=== PATIENT | female | born 1940 | race Caucasian/White ===

== ENCOUNTER 2016-06-23 06:52 | Outpatient (CLI) ==
[2012-10-29 14:30] VITALS: BMI 26.9
--- NOTE | 2016-06-23 08:26 | DI ---
EXAM: Radiographs, right rib HISTORY: Initial presentation for right rib pain following a fall. COMPARISON: Chest radiograph 10/31/2012. TECHNIQUE: Three views. FINDINGS/IMPRESSION: No right rib fracture identified. No right pleural effusion or pneumothorax detected.
--- NOTE | 2016-06-23 08:29 | DI ---
EXAM: Two x-rays of the chest. Comparison: 10/31/2012. Reason for exam: Right rib pain. Fall. FINDINGS: No pneumothorax. Operative changes are seen after ACDF. Cardiac silhouette is unchanged . Partially calcified density overlying the left hemithorax is presumably a breast implant. There is minimal blunting of both costophrenic angles likely atelectasis. No obvious displaced rib fractu res. Impression: 1. Minimal blunting of the costophrenic angles is likely atelectasis. No pneumothorax. 2. No obvious displaced rib fractures. If clinical concern exists, dedicated rib x-rays may be per formed.
--- NOTE | 2016-06-23 08:30 | DI ---
EXAM: Six views of the cervical spine. History: Neck trauma. Findings: Osteopenia. Only through C5 is seen on the lateral view. Atherosclerotic vascular calcif ications. No prevertebral soft tissue swelling. Predental space is not widened. There is loss of h eight involving the superior endplate of C5 with no definite acute cortical break seen. The anterio r fusion hardware at C6-7. Mild to moderate multilevel degenerative disc space narrowing. Multilev el bilateral bony neural foraminal narrowing secondary to uncovertebral and facet hypertrophy. Impression: Age indeterminate compression deformity involving the superior endplate of C5. Recomme nd correlation with cervical spine CT or MRI.
--- NOTE | 2016-06-23 08:35 | DI ---
EXAM: Mandible five views HISTORY: Fall, pain COMPARISON: None FINDINGS: No fracture or dislocation is identified. No focal soft tissue abnormality. IMPERSSION: No fracture or dislocation identified. Consider CT for further evaluation as indicated .
--- NOTE | 2016-06-23 09:02 | MRI ---
EXAM: Brain MRI without contrast. HISTORY: Fall. COMPARISON: Head CT 10/29/2012 and brain MRI 10/16/2011. TECHNIQUE: Multiplanar, multisequence MR images were acquired of the brain without contrast. FINDINGS: The midline structures are central and the craniocervical junction is unremarkable. The ventricles and sulci are generally normal in size and configuration. There are no abnormal extra-ax ial fluid collections. The brain parenchyma has a 3 mm focus of mildly bright B 1000, dark ADC , bright T2 signal in the me dial left temporal lobe along the medial margin of the left temporal horn of the lateral ventricle. This corresponds with the inferior lateral left anterior hippocampal body and may represent a small focus of late acute hypoperfusion or infarction. There is a faint 3 mm focus of bright B 1000 sign al in the superior right parietal lobe (image #19). This has no corresponding dark B 1000 signal or bright T2 signal is considered artifactual. Metallic artifact is present along the right frontal c alvarium that corresponds with a punctate density on the remote CT scan. This is consistent with a tiny focus of metal in the right frontal scalp. Small T2 hyperintensities are present in the suprat entorial white matter and megan compatible with moderate leukomalacia. There is a small chronic infa rct in the anterior left basal ganglia. The corpus callosum is normal in configuration. The pituit saulo gland is unremarkable. There are no intraorbital masses. Minor scattered mucosal thickening is present in the ethmoid air cells bilaterally and in a few inferior mastoid air cells bilaterally. There is intermediate T1 and intermediate to mildly bright T2 signal in the right internal carotid a rtery from the distal cervical segment to the supraclinoid segment consistent with occlusion in the neck. A normal flow void is present in the left internal carotid artery, both anterior and middle c erebral arteries and in the posterior circulation. Dural venous sinuses are patent. There is upper cervical hypertrophic facet arthropathy. IMPRESSION: 1. Probable small late acute infarct medial left temporal lobe involving the hippocampus. 2. 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 Carotid artery duplex ultrasound or neck CTA may be considered to furthe r define the anatomy. 3. Small chronic infarct anterior left basal ganglia and moderate chronic ischemic small vessel dis ease. Unexpected results telephoned and faxed to referring physician's nurse at 8:52 a.m.
== END 2016-06-23 06:53 | disposition home or self-care (01) ==
LOC: RAD 06:52
PROVIDERS: ATTEND Internal Medicine
DX: M25.512 Pain in left shoulder (principal); M54.2 Cervicalgia; R51 Headache; R07.81 Pleurodynia; W19.XXXA Unspecified fall, initial encounter

== ENCOUNTER 2016-06-23 11:04 | Emergency (ER) ==
[2016-06-23 11:13] VITALS: BP 169/83; TEMP 98.3; BMI 26.5
--- NOTE | 2016-06-23 12:09 | CT ---
EXAM: CT cervical spine without contrast. HISTORY: C5 compression fracture. COMPARISON: Radiograph earlier the same day. TECHNIQUE: Multiple axial images of the cervical spine were obtained without intravenous contrast. Images were reformatted in the sagittal and coronal planes. FINDINGS: Discectomy and fusion changes seen at C5-6 on C6-7. Anterior plate and screw fixation se en at C6-7. The right-sided C7 screw sits within the C7-T1 disc, best seen on sagittal image 57. T here is osseous incorporation across the C5-6 vertebral bodies. There may be some central osseous i ncorporation across C6-7. There is mild depression of the anterior superior endplate of C5 which de monstrates smooth margins. Vertebral body heights are otherwise normal. There is approximately 0.2 cm anterolisthesis of C7 on T1. Alignment is otherwise normal. No acute fracture identified. C2-3: Neural compromise. C3-4: Uncovertebral hypertrophy and facet arthropathy with mild neural foraminal narrowing. There i s widening of the right to C3-4 facet joint, likely due to synovial proliferation. C4-5: Disc osteophyte formation, uncovertebral hypertrophy and facet arthropathy with moderate, lef t greater than right neural foraminal narrowing. C5-6: No neural compromise. C6-7: Residual endplate osteophyte formation, uncovertebral hypertrophy and facet arthropathy with severe, left greater than right neural foraminal narrowing. C7-T1: Uncovertebral hypertrophy and facet arthropathy with mild moderate neural foraminal narrowin g Paravertebral soft tissues are without acute abnormality. Atherosclerotic calcifications are presen t. Left lobe of the thyroid is small, possibly partially absent. Right thyroid lobe is heterogeneo us with probable small nodule on axial image 64. IMPRESSION: 1. Old appearing anterior superior endplate compression of C5. 2. Postsurgical and degenerative changes as described.
[2016-06-23] MEDS ORDERED: MORPHINE 4 MG/ML SYRINGE IM STA (12:35)
[2016-06-23] MEDS ORDERED: MORPHINE 2 MG/ML SYRINGE IM STA (12:41)
--- NOTE | 2016-06-23 13:17 | US ---
EXAM: Ultrasound bilateral carotid duplex. HISTORY: Acute left temporal lobe infarction. Suspected right internal carotid artery occlusion COMPARISON: MRI earlier the same day. TECHNIQUE: Multiple reyna scale and color Doppler images were obtained. FINDINGS: Please note that estimates of internal carotid artery stenoses are based upon NASCET gerri chavez. Right carotid: No detectable flow in the right internal carotid artery. Flow in the right vertebra l artery is not identified. Left carotid: Calcified plaquing noted without visual evidence for 50% or greater stenosis. Peak s ystolic velocity measurement in the left internal carotid artery is 1.1 meters per second. Left int ernal to common carotid artery peak systolic velocity ratio measures 0.4. End diastolic velocity me asurement in the left internal carotid artery measures 0.4 meters per second. Flow in the left vert ebral artery is antegrade. IMPRESSION: 1. Occluded right internal carotid artery. 2. Velocity measurements in the left internal carotid artery suggests mild, less than 50%, stenosis . 3. Non-visualized right vertebral artery which could be technical. Correlate for signs of vertebra l artery occlusion/stenosis. 4. Antegrade flow in the left vertebral artery.
--- NOTE | 2016-06-23 13:45 | ED.PDOC ---
General ED Provider: Dr. JERRY ROBERT Chief Complaint: Fall Stated Complaint: neck pain Time Seen by Physician: 11:00 (MRI report examined ) Mode of Arrival: Walk-In Information Source: Patient Exam Limitations: No limitations Primary Care Provider: BUDDY CHILDS Nursing and Triage Documentation Reviewed and Agree: Yes (fall history 5 days ago started have neck pain ) Musculoskeletal Complaint Exam - Neck Pain Complaint/Exam Mechanism of Injury: Reports: Trauma (fall week ago ) Onset/Duration: 7 days Symptoms Are: Still present Initial Severity: Mild Current Severity: Mild Character: Reports: Aching Aggravating: Reports: Position, Movement Alleviating: Reports: Position Associated Signs and Symptoms: Denies: Swelling, Redness, Bruising, Fever, Nuchal rigidity, Weakness, Headache, Paresthesia Related History: Reports: Similar episode Meningitis Risk Factors: Reports: None Cervical Spine Injury Risk Factors: Reports: Post-Midline CS tender. Denies: Evidence of intoxication, Altered LOC, Focal neuro deficit, Distracting injuries Carotid Bruit Present: Yes Pain on Passive Flexion: No Positive Kernig's Sign: No Focal Weakness: Present: None Focal Sensory Loss: Reports: None Differential Diagnoses: Sprain, Strain Review of Systems - Review Of Systems Constitutional: Reports: No symptoms Eyes: Reports: No symptoms Ears, Nose, Mouth, Throat: Reports: No symptoms Respiratory: Reports: No symptoms Cardiac: Reports: No symptoms GI: Reports: No symptoms : Reports: No symptoms Musculoskeletal: Reports: Neck pain Skin: Reports: No symptoms Neurological: Reports: No symptoms Endocrine: Reports: No symptoms Hematologic/Lymphatic: Reports: No symptoms All Other Systems: Reviewed and Negative Past Medical History - Past Medical History Previously Healthy: No Endocrine: Reports: None Cardiovascular: Reports: Hypertension Respiratory: Reports: COPD Hematological: Reports: None Gastrointestinal: Reports: None Genitourinary: Reports: None Neuro/Psych: Reports: Dementia Musculoskeletal: Reports: None Cancer: Reports: None Last Menstrual Period: N/A - Surgical History General Surgical History: Reports: Hysterectomy, Cholecystectomy - Family History Family History: Reports: Unknown - Social History Smoking Status: Current every day smoker, Heavy tobacco smoker Hx Substance Use: No Alcohol Screening: None - Immunizations Tetanus Shot up to Date: Yes Physical Exam - Physical Exam Appearance: Well-appearing, No pain distress, Well-nourished Eyes: SAMANTA, EOMI, Conjunctiva clear ENT: Ears normal, Nose normal, Oropharynx normal Respiratory: Airway patent, Breath sounds clear, Breath sounds equal, Respirations nonlabored Cardiovascular: RRR, Pulses normal, No rub, No murmur GI/: Soft, Nontender, No masses, Bowel sounds normal, No Organomegaly Musculoskeletal: Normal strength, ROM intact, No edema, No calf tenderness Skin: Warm, Dry, Normal color Neurological: Sensation intact, Motor intact, Reflexes intact, Cranial nerves intact, Alert, Oriented Psychiatric: Affect appropriate, Mood appropriate Interpretation - Radiology Interpretation Radiology Interpretation By: Radiologist Radiology Results: Positive (righ sised occlusion) Critical Care Note - Critical Care Note Total Time (mins): 0 Course - Course Orders, Labs, Meds: Orders Category Date Time Status Morphine Sulfate [Morphine 2 mg/ml Syringe] MEDS 06/23/16 12:41 Discontinued 2 mg IM ONCE STA CT CERVICAL SPINE W/O CONTRAST Stat RADS 06/23/16 11:34 Completed ULTRASOUND DOPPLER CAROTID [U/S DOPPLER CAROTID] Stat RADS 06/23/16 12:22 Completed Medications Discontinued Medications Generic Name Dose Route Start Last Admin Trade Name Marina PRN Reason Stop Dose Admin Morphine Sulfate 2 mg 06/23/16 12:41 06/23/16 13:34 Morphine 2 Mg/Ml Syringe IM 06/23/16 12:42 2 mg ONCE STA Administration Vital Signs: Temp Pulse Resp BP Pulse Ox 06/23/16 11:04 98.3 F 75 18 169/83 H 94 L Departure - Departure Time of Disposition: 13:47 (pmd saw pt in the E/D) Disposition: ADMITTED INPATIENT Discharge Problem: Neck pain Instructions: Neck Pain (ED) Condition: Good Pt referred to PMD for follow-up: No Additional Instructions: Please call your Family Physician as soon as possible to schedule a follow-up appointment. Allergies/Adverse Reactions: Allergies Iodinated Contrast Media - Oral and [Iodinated Contrast Media - IV Dye] Adverse Reaction (Verified 06/23/16 11:13) Home Medications: Ambulatory Orders Amantadine HCl [Amantadine] 100 mg PO DAILY 10/29/12 Lorazepam [Ativan] 1 mg PO BEDTIME 10/29/12 Quetiapine Fumarate [Seroquel] 50 mg PO BEDTIME 10/29/12 Donepezil HCl 10 mg PO DAILY 06/23/16 Hydrocodone Bit/Acetaminophen [[place] 10-325] 1 tab PO QID PRN 06/23/16 Memantine HCl [Namenda Xr] 28 mg PO DAILY 06/23/16 Tizanidine HCl 4 mg PO BEDTIME 06/23/16 Valsartan 320 mg PO DAILY 06/23/16 Disposition Discussed With: Patient
[2016-06-23] MEDS ORDERED: NORCO 10-325 PO PRN (13:51)
[2016-06-23] MEDS ORDERED: SODIUM CHLORIDE 1,000 ML IV SCH (14:00)
[2016-06-23] MEDS ORDERED: ATIVAN PO SCH (21:00)
[2016-06-24] MEDS ORDERED: DIOVAN PO SCH (09:00)
[2016-06-24] MEDS ORDERED: VALSARTAN 320 MG PO SCH (09:00)
[2016-06-24] MEDS ORDERED: NON-FORMULARY MEDICATION (Memantine Hcl [Namenda Xr] 28 MG) PO SCH (09:00)
== END 2016-06-23 14:49 | disposition other institution (70) ==
LOC: ED 11:04
DX: M54.2 Cervicalgia (principal); R09.89 Other specified symptoms and signs involving the circulatory and respiratory systems; W19.XXXA Unspecified fall, initial encounter; F17.210 Nicotine dependence, cigarettes, uncomplicated; M25.512 Pain in left shoulder; R51 Headache; R07.81 Pleurodynia
CPT/HCPCS: 96372; 99283

== ENCOUNTER 2016-07-27 11:30 | Emergency (ER) ==
[2016-07-27 11:31] VITALS: BMI 26.5
[2016-07-27 11:42] VITALS: BP 145/88; TEMP 98.2
--- NOTE | 2016-07-27 11:52 | ED.PDOC ---
General ED Provider: Dr. AMITA CALVILLO Chief Complaint: Fall Stated Complaint: Pushing walker - rolled out in front of her and she want down on R knee, R elbow, Shoulder Time Seen by Physician: 12:10 Mode of Arrival: Wheelchair Information Source: Patient Exam Limitations: No limitations (Except pain with exam, shoulder, knee) Primary Care Provider: BUDDY CHILDS Nursing and Triage Documentation Reviewed and Agree: Yes Review of Systems - Review Of Systems Constitutional: Reports: No symptoms Respiratory: Reports: No symptoms Musculoskeletal: Reports: Joint pain (R knee; R shoulder; R elbow), Joint swelling (R knee) All Other Systems: Reviewed and Negative Past Medical History - Past Medical History Previously Healthy: No Endocrine: Reports: None Cardiovascular: Reports: Hypertension Respiratory: Reports: COPD Hematological: Reports: None Gastrointestinal: Reports: None Genitourinary: Reports: None Neuro/Psych: Reports: Dementia Musculoskeletal: Reports: None Cancer: Reports: None Last Menstrual Period: unknown - Surgical History General Surgical History: Reports: Hysterectomy, Cholecystectomy - Family History Family History: Reports: Unknown - Social History Smoking Status: Current every day smoker, Heavy tobacco smoker Hx Substance Use: No Alcohol Screening: None - Immunizations Tetanus Shot up to Date: Yes (2 years) Physical Exam - Physical Exam Appearance: Well-appearing Pain Distress: Moderate Eyes: SAMANTA, EOMI Neck: Nonsupple Respiratory: Airway patent, Breath sounds clear, Breath sounds equal, Respirations nonlabored Cardiovascular: RRR, Pulses normal GI/: Soft, Nontender, No masses Musculoskeletal: Limited ROM (R knee;R shoulder) Skin: Warm, Dry, Normal color (Except for ecchymosis developing R knee) Neurological: Sensation intact, Motor intact, Alert, Oriented Psychiatric: Affect appropriate, Mood appropriate Interpretation - Radiology Interpretation Radiology Interpretation By: Radiologist Radiology Results: Positive Xray Comments: Mildly displaced fracture R humeral neck and probably greater tuberosity. Radiology Interpretation By: ED Physician Radiology Results: Positive (Possible non displaced fx distal R humerus; seen only AP view) Xray Comments: R knee and R elbow Physician Notification - Case Discussed Physician Notified: Dr. Childs Time of Notification: 13:20 (Send to Ortho) Critical Care Note - Critical Care Note Total Time (mins): 25 Course - Course Orders, Labs, Meds: Orders Category Date Time Status PIETRO [ED PIETRO WRAP] .ONCE EMERGENCY 07/27/16 13:46 Active Shoulder immobilizer [ED SPLINT APPLICATION] .ONCE EMERGENCY 07/27/16 13:27 Active Hydromorphone HCl [Dilaudid 1 mg/ml Syringe] MEDS 07/27/16 11:57 Discontinued 0.5 mg IVP ONCE STA Hydromorphone HCl [Dilaudid 1 mg/ml Syringe] MEDS 07/27/16 13:13 Discontinued 0.5 mg IVP ONCE STA ELBOW, RIGHT 2 VIEWS Stat RADS 07/27/16 12:21 Completed KNEE, RIGHT 4 VIEWS Stat RADS 07/27/16 12:20 Completed SHOULDER, RIGHT MIN 2V Stat RADS 07/27/16 12:19 Completed Medications Discontinued Medications Generic Name Dose Route Start Last Admin Trade Name Freq PRN Reason Stop Dose Admin Hydromorphone HCl 0.5 mg 07/27/16 11:57 07/27/16 12:00 Dilaudid 1 Mg/Ml Syringe IVP 07/27/16 11:58 0.5 mg ONCE STA Administration Hydromorphone HCl 0.5 mg 07/27/16 13:13 07/27/16 13:37 Dilaudid 1 Mg/Ml Syringe IVP 07/27/16 13:14 0.5 mg ONCE STA Administration Vital Signs: Temp Pulse Resp BP Pulse Ox 07/27/16 11:32 98.2 F 77 20 145/88 H 91 L Departure - Departure Time of Disposition: 14:03 Disposition: HOME SELF-CARE Discharge Problem: Arm fracture, right Instructions: Arm Fracture in Adults (ED) Condition: Good Pt referred to PMD for follow-up: Yes Additional Instructions: SEE DR. CLARK TOMORROW AT 1:00 PM. [id number] [facility] TAKE INSURANCE CARDS AND MEDICATION LIST. USE NORCO FOR PAIN THAT YOU ALREADY HAVE. WEAR ARM IMMOBILIZER UNTIL YOU SEE DR. CLARK. Allergies/Adverse Reactions: Allergies Iodinated Contrast Media - Oral and [Iodinated Contrast Media - IV Dye] Adverse Reaction (Verified 06/23/16 11:13) Home Medications: Ambulatory Orders Amantadine HCl [Amantadine] 100 mg PO DAILY 10/29/12 Lorazepam [Ativan] 1 mg PO BEDTIME 10/29/12 Quetiapine Fumarate [Seroquel] 50 mg PO BEDTIME 10/29/12 Donepezil HCl 10 mg PO DAILY 06/23/16 Hydrocodone Bit/Acetaminophen [[place] 10-325] 1 tab PO QID PRN 06/23/16 Memantine HCl [Namenda Xr] 28 mg PO DAILY 06/23/16 Tizanidine HCl 4 mg PO BEDTIME 06/23/16 Valsartan 320 mg PO DAILY 06/23/16 Aspirin [Aspirin EC] 81 mg PO DAILYWM 07/27/16 Lovastatin 40 mg PO BEDTIME 07/27/16 Disposition Discussed With: Patient, Family
[2016-07-27] MEDS ORDERED: DILAUDID 1 MG/ML SYRINGE IVP STA ×2 (11:57→13:13)
--- NOTE | 2016-07-27 13:02 | DI ---
EXAM: Three views of the right shoulder. History: Right shoulder pain and trauma. Findings / impression: Osteopenia. Postsurgical changes of the cervical spine. Mildly displaced f ractures involving the right humeral neck and probably the greater tuberosity. No dislocation.
--- NOTE | 2016-07-27 13:04 | DI ---
Exam: Right knee four view. HISTORY: Trauma. Findings: Four images of the right knee are submitted. These demonstrate mild osteophytosis in the medial and lateral compartments. There are small ossifications posterior to the knee joint at the midline. There is minimal patellar spurring. No acute fracture or dislocation is visualized. Ther e is a small plantar calcaneal spur. There is soft tissue swelling along the medial and anterior as pect of the right knee. Impressions: Mild tricompartmental degenerative disease with no acute fracture or dislocation. Very small suprapatellar effusion. Soft tissue swelling along the medial and anterior aspect of the right knee.
--- NOTE | 2016-07-27 13:14 | DI ---
EXAM: Two views right elbow. HISTORY: Trauma. DATE: 07/27/2016. COMPARISON: None. TECHNIQUE: AP and lateral views of the right elbow were obtained. FINDINGS: On the AP view, the lateral aspect of the right distal humerus has a possible cortical de fect superior to the lateral epicondyle. A possible periosteal reaction is located superior to this area. These findings are not seen on the lateral view. There is no dislocation. No significant j oint effusion is seen. Possible mild soft tissue swelling is located posterior and superior to the right elbow. IMPRESSION: Questionable nondisplaced fracture of the right distal humerus. Clinical correlation i s recommended.
== END 2016-07-27 14:10 | disposition home or self-care (01) ==
LOC: ED 11:30
DX: S42.201A Unspecified fracture of upper end of right humerus, initial encounter for closed fracture (principal); S80.01XA Contusion of right knee, initial encounter; S59.901A Unspecified injury of right elbow, initial encounter; W19.XXXA Unspecified fall, initial encounter; F17.210 Nicotine dependence, cigarettes, uncomplicated; Z79.899 Other long term (current) drug therapy
CPT/HCPCS: 96374; 96376; 99283

== ENCOUNTER 2017-06-01 15:15 | Inpatient (IN) | payer OTHER ==
[2017-06-01] MEDS ORDERED: ATROPINE SULFATE PFS IVP PRN (15:31)
[2017-06-01] MEDS ORDERED: NITROSTAT SL PRN (15:31)
[2017-06-01] MEDS ORDERED: VISTARIL INJ IM PRN (15:31)
[2017-06-01] MEDS ORDERED: TYLENOL PO PRN (15:31)
[2017-06-01 15:58] VITALS: BMI 25.4
--- NOTE | 2017-06-01 16:33 | DI ---
EXAM: Single view of the chest History: Cough. Comparison: Chest radiograph 06/23/2016 Findings: Heart size is within normal limits. Atherosclerotic vascular calcifications. Postsurgical changes of the cervical spine. Bronchial wall thickening. Question mild left lower lobe infiltrate . No appreciable pleural fluid and no pneumothorax. No acute osseous abnormalities. Impression: 1. Question mild left lower lobe infiltrate. 2. Bronchial wall thickening
[2017-06-01] MEDS: DEXTROSE 5%-1/2NS IV SOLUTION 1,000 ML IV SCH (16:41)
[2017-06-01] MEDS: XOPENEX 1.25 MG NEB SCH ×2 (16:45→23:45)
[2017-06-01] MEDS: SOLU-CORTEF 250 MG IVP SCH ×2 (16:55→21:59)
--- NOTE | 2017-06-01 16:55 | CT ---
Exam: CT abdomen pelvis without intravenous contrast. Comparison: CT pelvis performed 10/14/2011. Reason for exam: Rectal bleeding with abdominal pain. FINDINGS: Patchy ground-glass opacities are seen in both lung bases. There is a partially imaged lara cification in the right anterior chest soft tissues. The liver is lower in attenuation than the spleen. The gallbladder has been removed. The adrenal glands and splenic parenchyma appear grossly unremarkable. The spleen measures 12.9 cm i n length. A moderate amount of retained food products are seen within the proximal stomach. Operati ve changes are seen in the hand and pelvis. Multiple stones are seen in the left renal collecting system measuring up to 8 millimeters in the sparkle rt axis. There is a 12 mm indeterminate density renal cortical exophytic lesion measuring 14 HU. No hydronephrosis or hydroureter is seen in the left kidney. There is a punctate calcification in the right renal collecting system measuring approximately 1.3 mm . No hydronephrosis, hydroureter, or ureterolithiasis. The bladder appears grossly unremarkable. No intra-abdominal free air or pelvic free fluid. No focal small bowel dilatation or transition point. Tubular structure in the right lower quadrant presumably the appendix with a small appendicolith. No inflammatory changes are seen in the expected location of the appendix. Scattered diverticular disease is seen within the rectosigmoid without surrounding inflammatory moreno e. High density material within the rectum may represent stool or soft tissue. There is mild to moderate degenerative disease in the lumbosacral spine with intervertebral body disc space height loss and facet hypertrophy with osteophyte formation. Atherosclerotic disease is seen within the aorta. Impression: 1. Ground-glass opacities in the lung bases likely inflammation or infection. 2. Indeterminate density material within the rectum may represent stool or soft tissue. Recommend f urther evaluation. 3. Diverticulosis without evidence of diverticulitis. 4. Nephrolithiasis without evidence of hydronephrosis. 5. Indeterminate density left exophytic renal lesion measuring 14 HU. Ultrasound evaluation is marissa mmended for further characterization. 6. Hepatic steatosis Report faxed at [phone] hours on 06/01/2017.
[2017-06-01] MEDS: PROTONIX IV IVP SCH (16:57)
[2017-06-01] MEDS: ROCEPHIN 1 GM in SODIUM CHLORIDE 50 ML IV SCH (16:58)
[2017-06-01] MEDS ORDERED: NON-FORMULARY MEDICATION (Lovastatin [Lovastatin] 40 MG) PO SCH (17:00)
[2017-06-01] MEDS: MEVACOR PO SCH (17:00)
[2017-06-01] MEDS: ZITHROMAX PO SCH (17:01)
[2017-06-01] MEDS: NICODERM 21 MG TD SCH (17:09)
[2017-06-01] MEDS: NORCO 10-325 PO PRN ×2 (17:24→22:06)
[2017-06-01] MEDS ORDERED: NON-FORMULARY MEDICATION (Memantine Hcl [Namenda Xr] 28 MG) PO SCH (21:00)
[2017-06-01] MEDS: SEROQUEL PO SCH (21:24)
[2017-06-01] MEDS: NAMENDA PO SCH (21:24)
[2017-06-01] MEDS: ATIVAN PO SCH (21:24)
[2017-06-01] MEDS: ZANAFLEX PO SCH (21:24)
[2017-06-02] MEDS: NORCO 10-325 PO PRN ×3 (04:50→17:31)
[2017-06-02] MEDS: XOPENEX 1.25 MG NEB SCH ×4 (04:58→23:49)
[2017-06-02] MEDS: SOLU-CORTEF 250 MG IVP SCH ×3 (05:54→21:05)
[2017-06-02] MEDS: DEXTROSE 5%-1/2NS IV SOLUTION 1,000 ML IV SCH ×2 (05:54→21:19)
[2017-06-02] MEDS: SPIRIVA IH SCH (08:56)
[2017-06-02] MEDS: ROCEPHIN 1 GM in SODIUM CHLORIDE 50 ML IV SCH (08:57)
[2017-06-02] MEDS: ASPIRIN EC PO SCH (08:58)
[2017-06-02] MEDS: ARICEPT PO SCH (08:58)
[2017-06-02] MEDS: ZITHROMAX PO SCH (08:58)
[2017-06-02] MEDS: SYMMETREL PO SCH (08:58)
[2017-06-02] MEDS: DIOVAN PO SCH (08:59)
[2017-06-02] MEDS: NAMENDA PO SCH ×2 (08:59→21:04)
[2017-06-02] MEDS: NICODERM 21 MG TD SCH (08:59)
[2017-06-02] MEDS ORDERED: NON-FORMULARY MEDICATION (Amantadine Hcl [Amantadine] 100 MG) PO SCH (09:00)
[2017-06-02] MEDS ORDERED: VALSARTAN 320 MG PO SCH (09:00)
[2017-06-02] MEDS: PLAVIX PO SCH (09:00)
[2017-06-02] MEDS: PROTONIX IV IVP SCH (09:05)
[2017-06-02] MEDS: MORPHINE 4 MG/ML VIAL IVP PRN ×2 (13:59→21:14)
[2017-06-02] MEDS: MEVACOR PO SCH (17:32)
[2017-06-02] MEDS: ATIVAN PO SCH (21:04)
[2017-06-02] MEDS: ZANAFLEX PO SCH (21:05)
[2017-06-02] MEDS: SEROQUEL PO SCH (21:05)
[2017-06-03] MEDS: NORCO 10-325 PO PRN ×4 (01:43→23:32)
[2017-06-03] MEDS: MORPHINE 4 MG/ML VIAL IVP PRN (04:41)
[2017-06-03] MEDS: SOLU-CORTEF 250 MG IVP SCH ×3 (04:41→20:40)
[2017-06-03] MEDS: XOPENEX 1.25 MG NEB SCH ×4 (06:00→23:15)
[2017-06-03] MEDS: NICODERM 21 MG TD SCH (08:36)
[2017-06-03] MEDS: ROCEPHIN 1 GM in SODIUM CHLORIDE 50 ML IV SCH (08:36)
[2017-06-03] MEDS: SPIRIVA IH SCH (08:36)
[2017-06-03] MEDS: ARICEPT PO SCH (08:40)
[2017-06-03] MEDS: PLAVIX PO SCH (08:40)
[2017-06-03] MEDS: NAMENDA PO SCH ×2 (08:40→20:38)
[2017-06-03] MEDS: ZITHROMAX PO SCH (08:40)
[2017-06-03] MEDS: DIOVAN PO SCH (08:40)
[2017-06-03] MEDS: ASPIRIN EC PO SCH (08:40)
[2017-06-03] MEDS: SYMMETREL PO SCH (08:40)
[2017-06-03] MEDS: PROTONIX IV IVP SCH (09:03)
[2017-06-03] MEDS ORDERED: DULCOLAX RC STA (11:31)
[2017-06-03] MEDS: DEXTROSE 5%-1/2NS IV SOLUTION 1,000 ML IV SCH (11:50)
[2017-06-03] MEDS: MIRALAX PO SCH (12:07)
[2017-06-03] MEDS: MORPHINE 2 MG/ML SYRINGE IVP PRN ×2 (13:01→20:37)
[2017-06-03] MEDS ORDERED: LANOXIN IVP STA (14:59)
[2017-06-03] MEDS: MEVACOR PO SCH (15:59)
[2017-06-03] MEDS ORDERED: CARDIZEM ONE (18:18)
[2017-06-03] MEDS: CARDIZEM PO SCH ×2 (18:21→21:54)
[2017-06-03] MEDS: ATIVAN PO SCH (20:38)
[2017-06-03] MEDS: SEROQUEL PO SCH (20:39)
[2017-06-03] MEDS: ZANAFLEX PO SCH (20:39)
--- NOTE | 2017-06-03 22:15 | CT ---
Exam: CT of the chest without contrast History: Elevated CEA Technique: [address] of the chest FINDINGS: Bilateral patchy ground-glass opacities in the lungs. No consolidative opacities. No ple ural fluid or pneumothorax. Atherosclerotic calcification of the aorta and coronary arteries. No pa thologic lymph node enlargement or abundance of the mediastinum. Bilateral breast prosthesis with ri ght-sided prosthesis rupture. No acute chest wall abnormality is seen. No acute findings of the upp er abdomen. Impression: 1. Bilateral patchy ground-glass opacities are nonspecific. Correlate for possible pneumonitis. No acute findings of the chest otherwise.
[2017-06-04] MEDS: MORPHINE 2 MG/ML SYRINGE IVP PRN ×4 (02:49→21:43)
[2017-06-04] MEDS: SOLU-CORTEF 250 MG IVP SCH ×3 (05:17→21:42)
[2017-06-04] MEDS: XOPENEX 1.25 MG NEB SCH ×3 (05:40→18:04)
[2017-06-04] MEDS: NORCO 10-325 PO PRN ×3 (07:12→17:58)
[2017-06-04] MEDS: SPIRIVA IH SCH (09:04)
[2017-06-04] MEDS: ROCEPHIN 1 GM in SODIUM CHLORIDE 50 ML IV SCH (09:04)
[2017-06-04] MEDS: PROTONIX IV IVP SCH (12:43)
[2017-06-04] MEDS: NICODERM 21 MG TD SCH (12:45)
[2017-06-04] MEDS: ASPIRIN EC PO SCH (12:47)
[2017-06-04] MEDS: DIOVAN PO SCH (12:47)
[2017-06-04] MEDS: PLAVIX PO SCH (12:48)
[2017-06-04] MEDS: SYMMETREL PO SCH (12:48)
[2017-06-04] MEDS: MIRALAX PO SCH (12:48)
[2017-06-04] MEDS: NAMENDA PO SCH ×2 (12:48→21:47)
[2017-06-04] MEDS: CARDIZEM PO SCH ×2 (12:49→21:43)
[2017-06-04] MEDS: ARICEPT PO SCH (12:49)
--- NOTE | 2017-06-04 13:29 | US ---
EXAM: Ultrasound retroperitoneal complete. HISTORY: Left kidney mass. COMPARISON: Abdominal CT 06/01/2017. TECHNIQUE: Multiple reyna scale and color Doppler images. FINDINGS: Right kidney measures 11.1 x 5.6 x 5.3 cm and contains a simple cyst measuring no greater than 0.8 cm. The left kidney measures 11.2 x 6.9 x 5.4 cm and contains a thin-walled circumscribed a nechoic mass with posterior enhancement measuring up to 1.9 cm. Left kidney also demonstrates a foca l echogenic area with posterior shadowing within the collecting system. Cortical echogenicity is nor mal. There is no hydronephrosis. Urinary bladder is unremarkable. IMPRESSION: Bilateral renal cysts and left nephrolithiasis.
--- NOTE | 2017-06-04 13:35 | PCM.PROG ---
Attending Provider: ATTENDING PROVIDER: Dr. BUDDY CHILDS DATE OF SERVICE: 06/04/17 SUBJECTIVE: This 76 year old WHITE/ F was hospitalized 06/01/17. The patient is hospitalized with rectal bleed. Dr. Guzman examined and looks like prolapse of the rectum. CT scan showed possible mass that could represent stool. Hemoglobin and hematocrit are stable. No evidence of active GI bleed. The patient has atrial fibrillation, paroxysmal. The patient still smokes. She has severe chronic lung disease. REVIEW OF SYSTEMS: CONSTITUTIONAL: No night sweats. No fatigue, malaise, lethargy. No fever or chills. HEENT: Eyes: No visual changes. No eye pain. No eye discharge. ENT: No runny nose. No epistaxis. No sinus pain. No odynophagia. No congestion. RESPIRATORY: No cough, no congestion. No hemoptysis. No shortness of breath. CARDIOVASCULAR: No angina symptoms. No CHF symptoms. No atypical chest pain for CAD. No palpitations. No orthopnea.. GASTROINTESTINAL: Mild abdominal tenderness both lower quadrants, nonspecific. No nausea or vomiting. No diarrhea or constipation. No hematemesis. No hematochezia. GENITOURINARY: No urgency. No frequency. No dysuria. No hematuria. No obstructive symptoms. No discharge. No pain. No significant abnormal bleeding. MUSCULOSKELETAL: No musculoskeletal pain; no joint swelling. NEUROLOGICAL: Awake, alert, oriented to time, place and person. No headache. No neck pain. No syncope. No seizures. No dizziness. PSYCHIATRIC: Not anxious. No depression. No suicidal thoughts. No homicidal thoughts. SKIN: No rash. No lesions. No wounds. ENDOCRINE: No unexplained weight loss. No weight gain. HEMATOLOGIC/LYMPHATIC: No anemia. No purpura. No petechiae. No prolonged or excessive bleeding. No palpable lymph nodes. PHYSICAL EXAMINATION: GENERAL: The patient is awake, alert and oriented, lying in bed in no distress. VITAL SIGNS: Temperature 97.6 F, Pulse 105, Respiratory Rate 18, BP 145/94, Pulse Ox 96% HEENT: Head normocephalic, atraumatic. Eyes: Extraocular muscles are intact. Pupils are equal, round and reactive to light and accommodation. Ears: No lesions. Nose appeared normal. Throat: No exudate or erythema. NECK: Supple. No JVD, no carotid bruit. No lymphadenopathy or thyromegaly. LUNGS: Decreased breath sounds. Clear to auscultation. Percussion note normal. Chest symmetrical. HEART: S1, S2, no S3. No murmurs. No cyanosis or clubbing. No ascites. Pulses: Dorsalis pedis and posterior tibial pulses +1 to +2 both sides. ABDOMEN: Soft. Lower quadrant tenderness bilaterally, mild. Bowel sounds active. No CVA tenderness. No mass felt. EXTREMITIES: No edema. Full range of motion of all extremities, equal. NEUROLOGIC: No focal deficit. Cranial nerves II through XII are grossly intact. No headache, no double vision or headache. SKIN: Warm and dry. Intact. Turgor-normal. LYMPHATIC: No palpable lymph nodes/no lymphedema. MUSCULOSKELETAL: Normal joints with no swelling. Muscle tone is normal. LAB REVIEW: 06/04/17 04:35 06/04/17 04:35 06/04/17 04:35: Sodium 146 H, Potassium 3.5, Chloride 114 H, Carbon Dioxide 22 L , Anion Gap 13.5, BUN 12, Creatinine 0.58 L, Estimated GFR (MDRD) 102.00, BUN/ Creatinine Ratio 20.68, Glucose 147 H, Calcium 8.0 L, Total Bilirubin 0.2, AST 30, ALT 36, Alkaline Phosphatase 119, Total Protein 5.2 L, Albumin 2.3 L, Globulin 2.9, Albumin/Globulin Ratio 0.79 06/04/17 04:35: WBC 11.10 H D, RBC 3.91 L, Hgb 11.5 L, Hct 37.0, MCV 94.6, MCH 29.4, MCHC 31.1 L, RDW Coeff of Lester 14.7, Plt Count 217, Neutrophils % (Manual) 92.0 H, Lymphocytes % (Manual) 4.0 L, Metamyelocytes % 1.0, Myelocytes % 1.0, Reactive Lymphocytes 2.0, Anisocytosis Not present ASSESSMENT: Please see below. 1. LOWER QUADRANT ABDOMINAL DISCOMFORT, BILATERALLY, NONSPECIFIC 2. RECTAL BLEED 3. CHRONIC LUNG DISEASE WITH ACUTE BRONCHITIS 4. SMOKER 5. ATRIAL FIBRILLATION PLAN: 1. PFT 2. Echo 3. Continue antibiotics and steroids. 4. Dr. Guzman will follow on consult. 5. Will get GI referral with Dr. Brink. The patient has an appointment already scheduled for 06/26/17 - will see if that can be moved up . 6. The patient had declined any Coumadin or Novel blood thinners in past, is on Aspirin. Plan and coordination of the patient's care discussed in the presence of Grinder Set Up Operator Internal and nurse. CONDITION: STABLE SCRIBED BY: CASTILLO HALE Eating Disorder Specialist scribed while in presence of service performed by Dr. BUDDY CHILDS on 06/04/17 ([id number])
--- NOTE | 2017-06-04 15:38 | US ---
EXAM: ULTRASOUND CAROTID DUPLEX, BILATERAL HISTORY: Stroke. Occluded right internal carotid artery. FINDINGS: Reaves-scale ultrasound, color Doppler and spectral analysis was performed. Velocities are in meters per second. By reaves scale and color Doppler imaging, there was significant heterogeneous plaque deposition within the carotid systems bilaterally. RIGHT: External carotid artery peak systolic velocity: 0.24/0.0 Common carotid artery peak systolic velocity/end diastolic velocity: 0.5/0.1 Internal carotid artery peak systolic velocity: No definite detectable ICA/CCA peak systolic velocity ratio: - ICA end diastolic velocity: - LEFT: External carotid artery peak systolic velocity: 1.3/0.0 Common carotid artery peak systolic velocity/end diastolic velocity: 1.0/0.2 Internal carotid artery peak systolic velocity: 1.0 ICA/CCA peak systolic velocity ratio: 1.0 ICA end diastolic velocity: 0.3 The right and left vertebral arteries were antegrade. IMPRESSION: 1. 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 2. The left internal carotid artery peak systolic velocity of 1.0 meters per second and the ICA/CCA peak systolic velocity ratio 1.0 indicate no hemodynamically significant stenosis. Given the reaves sc fabian and color Doppler imaging findings, correlation with CTA may be beneficial. 3. Both vertebral arteries were antegrade.
[2017-06-04] MEDS: MEVACOR PO SCH (17:58)
[2017-06-04] MEDS ORDERED: DULCOLAX RC STA (18:00)
[2017-06-04] MEDS: ZANAFLEX PO SCH (21:43)
[2017-06-04] MEDS: SEROQUEL PO SCH (21:43)
[2017-06-04] MEDS: ATIVAN PO SCH (22:18)
[2017-06-05] MEDS: XOPENEX 1.25 MG NEB SCH ×5 (00:08→22:30)
[2017-06-05] MEDS: NORCO 10-325 PO PRN ×4 (01:43→19:45)
[2017-06-05] MEDS: MORPHINE 2 MG/ML SYRINGE IVP PRN ×4 (04:01→22:38)
[2017-06-05] MEDS: SOLU-CORTEF 250 MG IVP SCH ×3 (04:41→22:37)
[2017-06-05] MEDS: ROCEPHIN 1 GM in SODIUM CHLORIDE 50 ML IV SCH (10:38)
[2017-06-05] MEDS: PROTONIX IV IVP SCH (10:40)
[2017-06-05] MEDS: PLAVIX PO SCH (10:46)
[2017-06-05] MEDS: CARDIZEM PO SCH ×2 (10:46→22:37)
[2017-06-05] MEDS: ASPIRIN EC PO SCH (10:46)
[2017-06-05] MEDS: ARICEPT PO SCH (10:46)
[2017-06-05] MEDS: DIOVAN PO SCH (10:46)
[2017-06-05] MEDS: NAMENDA PO SCH ×2 (10:47→22:37)
[2017-06-05] MEDS: MIRALAX PO SCH (10:47)
[2017-06-05] MEDS: SYMMETREL PO SCH (10:47)
[2017-06-05] MEDS: NICODERM 21 MG TD SCH (10:48)
[2017-06-05] MEDS: SPIRIVA IH SCH (10:48)
--- NOTE | 2017-06-05 13:10 | PN ---
DATE OF SERVICE: 06/02/17 SUBJECTIVE: 76 year old white female hospitalized with acute pneumonitis, rectal bleed and abdominal pain. The patient is up and about in the room. She is oriented to time , place and person. She has mild abdominal discomfort, she has constipation. She says that Morphine Sulfate helps her a lot. Her rectal bleed, we haven't seen it. She had a BM small amount with no bleed. Hgb and Hct is stable with no evidence of active GI bleed. CT scan report discussed with the patient is practically normal except for possibility of soft tissue mass present in the rectum. REVIEW OF SYSTEMS: CONSTITUTIONAL: No night sweats. No fatigue, malaise, lethargy. No fever or chills. HEENT: Eyes: No visual changes. No eye pain. No eye discharge. ENT: No runny nose. No epistaxis. No sinus pain. No sore throat. No odynophagia. No congestion. RESPIRATORY: No cough, no congestion. No hemoptysis. No shortness of breath. CARDIOVASCULAR: No angina symptoms. No CHF symptoms. No atypical chest pain for CAD. No palpitations. No orthopnea. GASTROINTESTINAL: Abdominal discomforts in lower quadrants. No nausea or vomiting. No diarrhea or constipation. No hematemesis. No hematochezia. Appetite is acceptable. GENITOURINARY: No urgency. No frequency. No dysuria. No hematuria. No obstructive symptoms. No discharge. No pain. No significant abnormal bleeding. MUSCULOSKELETAL: No musculoskeletal pain; no joint swelling. NEUROLOGICAL: No headache. No neck pain. No syncope. No seizures. No dizziness. PSYCHIATRIC: Not anxious. No depression. No suicidal thoughts. No homicidal thoughts. SKIN: No rash. No lesions. No wounds. ENDOCRINE: No unexplained weight loss. No weight gain. HEMATOLOGIC/LYMPHATIC: No anemia. No purpura. No petechiae. No prolonged or excessive bleeding. No palpable lymph nodes. PHYSICAL EXAMINATION: GENERAL: The patient is oriented to time, place and person. VITAL SIGNS: Temperature 97.8, pulse 65, respiratory rate 15, blood pressure 138/78. HEENT: Head normocephalic, atraumatic. Eyes: Extraocular muscles are intact. Pupils are equal, round and reactive to light and accommodation. Ears: No lesions. Nose appeared normal. Throat: No exudate or erythema. NECK: Supple. No JVD, no carotid bruit. No lymphadenopathy or thyromegaly. LUNGS: Decreased breath sounds but clear to auscultation. Percussion note normal. Chest symmetrical. HEART: S1, S2, no S3. No murmurs. No cyanosis or clubbing. No ascites. Pulses: Dorsalis pedis and posterior tibial pulses +1 to +2 both sides. ABDOMEN: Soft. Nontender. Bowel sounds active. No CVA tenderness. No mass felt. EXTREMITIES: No edema. Full range of motion of all extremities, equal. NEUROLOGIC: No focal deficit. Cranial nerves II through XII are grossly intact. No headache, no double vision or headache. SKIN: Not dry. Intact. Turgor - normal. LYMPHATIC: No palpable lymph nodes/no lymphedema. MUSCULOSKELETAL: Normal joints with no swelling. Muscle tone is normal. ASSESSMENT: 1. Acute pneumonitis/bronchitis seems to be much better 2. Smoking, Counseling for smoking done, she wants to go out and smoke 3. Rectal bleed doesn't seem to be active at present time 4. Abdominal discomfort which could IBS, soft tissue mass, stool in the rectum by CT scan 5. Severe chronic lung disease 6. Hyperglycemia from steroid use 7. Parkinson's disease on Amantadine, followed by Dr Polo 8. Dementia treated with Aricept PLAN: 1. Continue antibiotics, Steroids and NEBS treatment 2. IV fluids CONDITION: Stable TIME SPENT: More than 30 minutes. Plan and coordination of the patient's care discussed in the presence of nurse. KOREY
--- NOTE | 2017-06-05 13:25 | PCM.PROG ---
Attending Provider: ATTENDING PROVIDER: Dr. BUDDY CHILDS DATE OF SERVICE: 06/05/17 SUBJECTIVE: This 76 year old WHITE/ F was hospitalized 06/01/17 with rectal bleed. The patient has prolapse of rectal mucosa. The patient also has atrial fib, paroxysmal, chronic bronchitis, smoking, chronic lung disease and peripheral arterial disease. The patient has appointment with Dr. Brink. The patient needs attention about the prolapse of her rectal mucosa. We will try to refer her to Dr. Gonzalez and get Dr. Artis/Dr. Rosario for GI consultation. REVIEW OF SYSTEMS: CONSTITUTIONAL: No night sweats. No fatigue, malaise, lethargy. No fever or chills. HEENT: Eyes: No visual changes. No eye pain. No eye discharge. ENT: No runny nose. No epistaxis. No sinus pain. No odynophagia. No congestion. RESPIRATORY: No cough, no congestion. No hemoptysis. No shortness of breath. CARDIOVASCULAR: No angina symptoms. No CHF symptoms. No atypical chest pain for CAD. No palpitations. No PND. No orthopnea. GASTROINTESTINAL: Constipation and diarrhea off and on. Abdominal pain. No nausea or vomiting. No hematemesis. No hematochezia. GENITOURINARY: No urgency. No frequency. No dysuria. No hematuria. No obstructive symptoms. No discharge. No pain. No significant abnormal bleeding. MUSCULOSKELETAL: No musculoskeletal pain; no joint swelling. NEUROLOGICAL: Awake, alert, oriented to time, place and person. No headache. No neck pain. No syncope. No seizures. No dizziness. PSYCHIATRIC: Not anxious. No depression. No suicidal thoughts. No homicidal thoughts. SKIN: No rash. No lesions. No wounds. ENDOCRINE: No unexplained weight loss. No weight gain. HEMATOLOGIC/LYMPHATIC: Anemia. No purpura. No petechiae. No prolonged or excessive bleeding. No palpable lymph nodes. PHYSICAL EXAMINATION: GENERAL: The patient is awake, alert and oriented, sitting in chair in no distress. VITAL SIGNS: Temperature 97.4 F, Pulse 54, Respiratory Rate 20, BP 158/68, Pulse Ox 99% HEENT: Head normocephalic, atraumatic. Eyes: Extraocular muscles are intact. Pupils are equal, round and reactive to light and accommodation. Ears: No lesions. Nose appeared normal. Throat: No exudate or erythema. NECK: Supple. No JVD, no carotid bruit. No lymphadenopathy or thyromegaly. LUNGS: Decreased breath sounds. Clear to auscultation. Percussion note normal. Chest symmetrical. HEART: S1, S2, no S3. No murmurs. No cyanosis or clubbing. No ascites. Pulses: Dorsalis pedis and posterior tibial pulses +1 to +2 both sides. ABDOMEN: Distended. Tenderness. Bowel sounds active. No CVA tenderness. No mass felt. EXTREMITIES: No edema. Full range of motion of all extremities, equal. NEUROLOGIC: No focal deficit. Cranial nerves II through XII are grossly intact. No headache, no double vision or headache. SKIN: Warm and dry. Intact. Turgor-normal. LYMPHATIC: No palpable lymph nodes/no lymphedema. MUSCULOSKELETAL: Normal joints with no swelling. Muscle tone is normal. LAB REVIEW: 06/05/17 05:00 06/05/17 05:00 06/05/17 05:00: Sodium 144, Potassium 3.4 L, Chloride 109 H, Carbon Dioxide 25, Anion Gap 13.4, BUN 13, Creatinine 0.72, Estimated GFR (MDRD) 79.00, BUN/ Creatinine Ratio 18.05, Glucose 181 H, Calcium 8.1 L, Total Bilirubin 0.2, AST 28, ALT 46, Alkaline Phosphatase 124, Total Protein 5.5 L, Albumin 2.5 L, Globulin 3.0, Albumin/Globulin Ratio 0.83 06/05/17 05:00: WBC 10.49 H, RBC 3.86 L, Hgb 11.5 L, Hct 36.0 L, MCV 93.3, MCH 29.8, MCHC 31.9, RDW Coeff of Lester 14.2, Plt Count 201, Immature Gran % (Auto) 2.6, Neut % (Auto) 85.5, Lymph % (Auto) 6.8 L, Alger % (Auto) 4.7, Eos % (Auto) 0.0, Baso % (Auto) 0.4, Immature Gran # (Auto) 0.3, Neut # (Auto) 9.0 H, Lymph # (Auto) 0.7, Alger # (Auto) 0.5, Eos # (Auto) 0.0, Baso # (Auto) 0.0 06/04/17 07:30: Stl Occult Blood (IFOB) Positive, Stool Occult Blood #2 No specimen received, Stool Occult Blood #3 No specimen received ASSESSMENT: 1. Abdominal pain, nonspecific 2. Rectal mucosa prolapse 3. Acute bronchitis, pneumonitis 4. Chronic lung disease 5. Anemia PLAN: 1. Continue antibiotics 2. Will try to refer to placer miner ( since Dr. Brink is out of town) where she can be seen sooner and refer to surgeon for rectal mucosal prolapse. The patient is also being followed by Dr. Guzman on surgical consult. 3. Will refer to Dr. Gonzalez/Dr. Hess. Plan and coordination of the patient's care discussed in the presence of Stable Cleaner and nurse. CONDITION: Stable SCRIBED BY: CASTILLO HALE, Senior Data Warehouse Developer scribed while in presence of service performed by Dr. BUDDY CHILDS on 06/05/17 ([id number])
--- NOTE | 2017-06-05 13:26 | PN ---
DATE OF SERVICE: 06/03/17 SUBJECTIVE: 76 year old white female hospitalized with rectal bleed, abdominal pain and acute bronchitis/pneumonitis. The patient's condition has improved. She is up and about in the room. In fact she goes out and smokes, part of the fact that she isn't allowed to. Counseling for smoking done. She still has abdominal pain lower quadrants. She had a bowel movement today with no evidence of bleeding. She will be given Miralax and Dulcolax suppository. The patient seems to be helped by the Morphine sulfate with abdominal pain every [address] Guzman is going to be on consultation for evaluation of abdominal pain. REVIEW OF SYSTEMS: CONSTITUTIONAL: No night sweats. No fatigue, malaise, lethargy. No fever or chills. HEENT: Eyes: No visual changes. No eye pain. No eye discharge. ENT: No runny nose. No epistaxis. No sinus pain. No sore throat. No odynophagia. No congestion. RESPIRATORY: No cough, no congestion. No hemoptysis. No shortness of breath. CARDIOVASCULAR: No angina symptoms. No CHF symptoms. No atypical chest pain for CAD. No palpitations. No orthopnea. GASTROINTESTINAL: No abdominal pain. No nausea or vomiting. No diarrhea or constipation. No hematemesis. No hematochezia. Appetite seems to be ok. No bleed from rectum. GENITOURINARY: No urgency. No frequency. No dysuria. No hematuria. No obstructive symptoms. No discharge. No pain. No significant abnormal bleeding. MUSCULOSKELETAL: No musculoskeletal pain; no joint swelling. NEUROLOGICAL: No headache. No neck pain. No syncope. No seizures. No dizziness. PSYCHIATRIC: Not anxious. No depression. No suicidal thoughts. No homicidal thoughts. SKIN: No rash. No lesions. No wounds. ENDOCRINE: No unexplained weight loss. No weight gain. HEMATOLOGIC/LYMPHATIC: No anemia. No purpura. No petechiae. No prolonged or excessive bleeding. No palpable lymph nodes. PHYSICAL EXAMINATION: GENERAL: The patient is oriented to time, place and person. VITAL SIGNS: Temperature 98, pulse 57, respiratory rate 12, blood pressure 157/ 73 and pulse ox 96%. HEENT: Head normocephalic, atraumatic. Eyes: Extraocular muscles are intact. Pupils are equal, round and reactive to light and accommodation. Ears: No lesions. Nose appeared normal. Throat: No exudate or erythema. NECK: Supple. No JVD, no carotid bruit. No lymphadenopathy or thyromegaly. LUNGS:Decreased breath sounds but clear to auscultation. Percussion note normal. Chest symmetrical. HEART: S1, S2, no S3. No murmurs. No cyanosis or clubbing. No ascites. Pulses: Dorsalis pedis and posterior tibial pulses +1 to +2 both sides. ABDOMEN: Soft. Lower quadrants are tenderness. Bowel sounds hyperactive. No CVA tenderness. No mass felt. EXTREMITIES: No edema. Full range of motion of all extremities, equal. NEUROLOGIC: No focal deficit. Cranial nerves II through XII are grossly intact. No headache, no double vision or headache. SKIN: Not dry. Intact. Turgor - normal. LYMPHATIC: No palpable lymph nodes/no lymphedema. MUSCULOSKELETAL: Normal joints with no swelling. Muscle tone is normal. LABS: Hgb 11.2, hct 35, WBC 16,000 normal differential, creatinine 0.6, BUN 7, potassium 3.3 and glucose 216. ASSESSMENT: 1. Abdominal pain could be from constipation, IBS, Mass in the rectal soft tissue, stool present at the time of CAT scan 2. Rectal bleed seems to be under control, likely could be hemorrhoidal bleed 3. Acute bronchitis/pneumonitis seems to be resolving 4. Chronic lung disease 5. Dementia 6. Hypertension 7. Hyperglycemia 216 likely from steroids. PLAN: 1. Continue the same treatment with antibiotics, steroids and NEBS treatment 2. Will continue to monitor CBC and CMP 3. DC IV fluids 4. NEBS to be every 6 hour 5. Dulcolax suppository to be given Later on the nurse called me that patient had very likely gone out to smoke, came back. Telemetry was put on and she was noted to be in atrial fibrillation which was asymptomatic with rate of 130. We will give 0.25IV Digoxin. Also the patient was advised not to go out and smoke. The patient is already on Plavix and Aspirin. She declined in the past of any Novel blood thinners or Coumadin and with the history of rectal bleed will hold off on anything like Coumadin or Novel blood thinners. CONDITION: Stable. TIME SPENT: More than 30 minutes. Plan and coordination of the patient's care discussed in the presence of nurse. KOREY
--- NOTE | 2017-06-05 14:08 | CONS ---
DATE OF CONSULTATION: 06/03/17 HISTORY OF PRESENT ILLNESS: 76-year-old female was admitted to the hospital the day before because of rectal bleeding plus anemia. She was admitted from the doctor's office. The patient also mentioned that she has a cauliflower mass protruding through her anus from time to time and this happens only when she has diarrhea. She had this diarrhea for some time and may last for several days followed by constipation for a day or two and then diarrhea. The patient is not taking an oral laxative. The patient had a previous colonoscopy in 2012. MEDICATIONS: Medications prior to this admission consisted of Ativan 1/2 mg tablet, two tablets at bedtime, Amantidine 100 mg daily, Seroquel 50 mg at bedtime, Aricept 10 mg daily, Hydrocodone/APAP 30/325 one tablet q.i.d. p.r.n., Namenda XR 28 mg capsule daily, Tizanidine 4 mg tablet at bedtime, Valsartan 320 mg daily, Aspirin 81 mg daily, Lovastatin 40 mg daily, Tiotropium 18 mcg cap per handihaler once a day, Plavix 75 mg daily. ALLERGIES: The patient claimed to be allergic to iodinated contrast as well as oral iodine. PAST MEDICAL/SURGICAL HISTORY: The patient in the past was known to have decreased hearing, familial tremors or benign essential tremors, dementia, Parkinson's tendancies. The patient has COPD and is on home oxygen. The patient had previous cholecystectomy, bilateral breast implants at age 41, thyroid tumor 20 years ago, left foot problems 5 years ago, seen by orthopedist. The patient continues to smoke. She had a CVA and occlusion of the right internal carotid. PHYSICAL EXAMINATION: GENERAL APPEARANCE: The patient is alert, oriented times four, not dyspneic or tachypneic with nasal oxygen. The patient is very cooperative. I introduced myself to her and informed her that I am here as Dr. Hinkle had requested me to see her. I did inform the patient that I will do a rectal examination to have some idea of what is protruding through the anal opening. The patient was agreeable. CARDIOVASCULAR: Normal sinus rhythm. RESPIRATORY: Lungs have diminished breath sounds. No rales. ABDOMEN: Protuberant, soft with no significant tenderness and no muscular guarding. Bowel sounds are active and no bruit. RECTAL: With the patient in the left lateral decubitus position with the knee towards the head. Anal sphincter is competent. Internal canal is free of tumor masses and no obvious blood. The patient's rectal vault is close to empty. There is no blood. ASSESSMENT 1. Anorectal mucosal prolapse 2. Bleeding is secondary to #1 3. Chronic tobacco use and abuse 4. History of CVA 5. Elevated alkaline phosphatase 6. Elevated CEA 9.5 7. Hepatic steatosis 8. Abnormal kidney CTs RECOMMENDATIONS/PLAN: 1. CT scan of both kidneys and CT scan chest. Thank you for allowing me to participate in the care of this patient with you. Will follow the patient. AIMED
--- NOTE | 2017-06-05 14:40 | CONS ---
DATE OF CONSULTATION: 06/04/17 REASON FOR CONSULTATION: The patient today is alert oriented - feeling better. She claims that she feels better. Ultrasound of the kidney showed bilateral renal cyst. CT scan of the chest unremarkable and still recommended to follow the CT in three months. This patient was advised to stop smoking. The patient's vital signs this evening at 5 p.m. were as follows: Temperature 97.7, pulse 108, blood pressure 146/74, respiratory rate 20, oxygen saturation 96 on room air. The patient, according to the telemetry strips, has atrial fibrillation. This patient is already taking an antiplatelet medication. I discussed the case with Dr. Hinkle and felt that she needed probably a referral to a general surgeon or a general colorectal surgeon for the anal prolapse. KOREY
[2017-06-05] MEDS: MEVACOR PO SCH (16:51)
[2017-06-05] MEDS: SEROQUEL PO SCH (22:37)
[2017-06-05] MEDS: ATIVAN PO SCH (22:37)
[2017-06-05] MEDS: ZANAFLEX PO SCH (22:37)
[2017-06-06] MEDS: NORCO 10-325 PO PRN ×4 (01:25→19:54)
[2017-06-06] MEDS: MORPHINE 2 MG/ML SYRINGE IVP PRN ×4 (04:46→23:30)
[2017-06-06] MEDS: SOLU-CORTEF 250 MG IVP SCH ×3 (04:56→20:52)
[2017-06-06] MEDS: XOPENEX 1.25 MG NEB SCH ×4 (04:58→23:15)
[2017-06-06] MEDS: ASPIRIN EC PO SCH (08:09)
[2017-06-06] MEDS: ARICEPT PO SCH (08:09)
[2017-06-06] MEDS: PLAVIX PO SCH (08:09)
[2017-06-06] MEDS: NAMENDA PO SCH ×2 (08:09→20:50)
[2017-06-06] MEDS: MIRALAX PO SCH (08:09)
[2017-06-06] MEDS: SYMMETREL PO SCH (08:10)
[2017-06-06] MEDS: DIOVAN PO SCH (08:10)
[2017-06-06] MEDS: CARDIZEM PO SCH ×2 (08:10→20:50)
[2017-06-06] MEDS: NICODERM 21 MG TD SCH (08:11)
[2017-06-06] MEDS: K-DUR PO SCH ×2 (09:14→16:31)
[2017-06-06] MEDS: ROCEPHIN 1 GM in SODIUM CHLORIDE 50 ML IV SCH (09:14)
[2017-06-06] MEDS: SPIRIVA IH SCH (09:14)
[2017-06-06] MEDS: PROTONIX IV IVP SCH (09:40)
--- NOTE | 2017-06-06 09:43 | CONS ---
DATE OF CONSULTATION: 06/05/17 HISTORY OF PRESENT ILLNESS: The patient had a bowel movement today and again had some bleeding. The patient is going to be referred to [facility] by Dr. Hinkle. I asked her if she had smoked since hospitalization and she did smoke once today. The patient has a gurgling cough. I did advise her never to smoke since there is a possibility that she might get a surgical intervention for the problem in [place]. It would be best if she would not smoke to improve her lung condition. The patient has chronic obstructive lung disease. LUNGS: Course breath sounds but no rales or wheezing. HEART: Audible with good tones ABDOMEN: Protuberant with no remarkable tenderness. VITAL SIGNS: Temperature 98.4 orally, pulse 60, blood pressure 182/79, respiratory rate 20, oxygen saturation 93 at room air. FEV1 68% of productive valve which is acceptable from the surgery stand point. I will not be following the patient anymore since the patient is going to be referred to and I do not have anything else to offer. KOREY
--- NOTE | 2017-06-06 11:31 | HP ---
DATE OF SERVICE: 06/01/17 REASON FOR HOSPITALIZATION/HISTORY OF PRESENT ILLNESS: Short of breath, cough and congestion. Abdominal pain. Weight loss. Diarrhea alternating with constipation. Blood with diarrhea, bright red. 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 HEENT: No sinus drainage, no sore throat. RESPIRATORY: Cough, no congestion. CARDIOVASCULAR: No atypical chest pain for coronary artery disease. No angina , CHF symptoms, palpitations.Shortness of breath. GASTROINTESTINAL: No melena. Abdominal pain. No GERD. Rectal bleeding. GENITOURINARY: No hematuria, no prostatism, no polyuria. ROLLER SKATE ASSEMBLER: No blackout, no dizziness, no headache, no double vision. MUSCULOSKELETAL: Osteoarthritis pain, no joint swelling. ENDOCRINE: Weight loss, 5 pounds, no weight gain. SKIN: Not dry, no rash. PSYCHIATRIC: Anxious, no depression, no suicidal thoughts, no homicidal thoughts. SOCIAL HISTORY: Marital Status: . Alcohol Usage: No. Tobacco Usage: Yes. FAMILY HISTORY: Father Mother Brother 4 Sister 3 MEDICATIONS: [place] 10-325mg take one tablet four times per day PRN Plavix 75mg one tablet PO daily Lovastatin 40mg PO one daily with evening meal Namenda XR 28mg take one capsule by PO daily Cyclobenzaprine 10mg PO daily Lorazepam 1mg PO daily Diovan 320mg PO daily Seroquel 50mg PO daily Amantadine 100mg one capsule PO daily Spiriva with Handihaler 18mcg inhale one capsule once daily Aspirin 81mg PO daily ALLERGIES: Demerol X-ray dye PHYSICAL EXAMINATION: V/S: Pulse 82, blood pressure 120/90, temperature 98.4 and oxygen saturation 91 %. GENERAL APPEARANCE: Oriented times three. Pale. HEENT: Normal. NECK: No JVP, no bruits. RESPIRATORY: Lungs are clear. Decreased breath sounds bilateral rhonchi, expiratory wheezing. CARDIOVASCULAR: S1, S2, no S3, no murmurs. No cyanosis, clubbing. No ascites. GI/ABDOMEN: No tenderness. Bowel sounds are active. EXTREMITIES: edema, pulses +1, equal. ROLLER SKATE ASSEMBLER: Deep tendon reflexes, sensory, motor and gait all normal. RECTAL: appointment scheduled 06/20.PELVIC: Refusal of mammogram. Hysterectomy ASSESSMENT: 1. Shortness of breath 2. Acute bronchitis 3. Abdominal pain 4. Rectal bleeding 5. Light hip OA 6. Light temporal lobe infarct Dr. Senior 7. Right total OCC of right ICA 8. Chronic bronchitis 9. COPD, smoker 10.Dementia 11.Dyslipidemia 12.Parkinson's disease 13.Cardiac cath 2012 14.IBS/Diarrhea/Constipation 15.C spine surgery 16.Low B12 level 17.Anemia PLAN: 1. Admit 2. Routine Telemetry orders- no cardiac markers 3. D5 03/06 normal saline @ 75cc/Hr IV 4. Chest x-ray 5. Rocephin 1 gram IV daily 6. Zithromax 500mg PO daily 7. CBC and CMP today and daily 8. ABG now 9. O2 1-2 liters nasal cannula PRN 10.Xopenex NEB treatment Q 6 hours scheduled 11.Solu-Cortef 125mg IV Q 8 hours 12.Continue home medications 13.Nicotine Patch 14.CT scan of abdomen and pelvis without verbal order 15.Stool for occult blood 16.Protonix 40mg IV daily 17.Regular diet TIME SPENT: More than 70 minutes. MTDD
--- NOTE | 2017-06-06 14:03 | PCM.PROG ---
Attending Provider: ATTENDING PROVIDER: Dr. BUDDY CHILDS DATE OF SERVICE: 06/06/17 SUBJECTIVE: This 76 year old WHITE/ F was hospitalized 06/01/17 with rectal bleed and abdominal pain. The patient has prolapse of rectal mucosa. Abdominal pain is more or less controlled. The patient will be referred to [facility] for possible rectal surgery as there is no one in the [facility] area to do this surgery. Peripheral arterial disease with occlusion right internal artery, left seems to be critically blocked and will do nuclear scan to evaluate left internal carotdid artery. The patient is allergic to IV dye. The patient is advised to quit smoking. She has severe chronic lung disease. REVIEW OF SYSTEMS: CONSTITUTIONAL: No night sweats. No fatigue, malaise, lethargy. No fever or chills. HEENT: Eyes: No visual changes. No eye pain. No eye discharge. ENT: No runny nose. No epistaxis. No sinus pain. No odynophagia. No congestion. RESPIRATORY: No cough, no congestion. No hemoptysis. No shortness of breath. CARDIOVASCULAR: No angina symptoms. No CHF symptoms. No atypical chest pain for CAD. No palpitations. No orthopnea.. GASTROINTESTINAL: No abdominal pain. No nausea or vomiting. No diarrhea or constipation. No hematemesis. No hematochezia. GENITOURINARY: No urgency. No frequency. No dysuria. No hematuria. No obstructive symptoms. No discharge. No pain. No significant abnormal bleeding. MUSCULOSKELETAL: No musculoskeletal pain; no joint swelling. NEUROLOGICAL: Awake, alert, oriented to time, place and person. No headache. No neck pain. No syncope. No seizures. No dizziness. PSYCHIATRIC: Not anxious. No depression. No suicidal thoughts. No homicidal thoughts. SKIN: No rash. No lesions. No wounds. ENDOCRINE: No unexplained weight loss. No weight gain. HEMATOLOGIC/LYMPHATIC: No anemia. No purpura. No petechiae. No prolonged or excessive bleeding. No palpable lymph nodes. PHYSICAL EXAMINATION: GENERAL: The patient is awake, alert and oriented, lying/sitting in bed in no distress. VITAL SIGNS: Temperature 97.8 F, Pulse 48, Respiratory Rate 12, BP 143/66, Pulse Ox 92% HEENT: Head normocephalic, atraumatic. Eyes: Extraocular muscles are intact. Pupils are equal, round and reactive to light and accommodation. Ears: No lesions. Nose appeared normal. Throat: No exudate or erythema. NECK: Supple. No JVD, no carotid bruit. No lymphadenopathy or thyromegaly. LUNGS: Decreased breath sounds. Clear to auscultation. Percussion note normal. Chest symmetrical. HEART: S1, S2, no S3. No murmurs. No cyanosis or clubbing. No ascites. Pulses: Dorsalis pedis and posterior tibial pulses +1 to +2 both sides. ABDOMEN: Soft. Non-tender. Bowel sounds active. No CVA tenderness. No mass felt. EXTREMITIES: No edema. Full range of motion of all extremities, equal. NEUROLOGIC: No focal deficit. Cranial nerves II through XII are grossly intact. No headache, no double vision or headache. SKIN: Warm and dry. Intact. Turgor-normal. LYMPHATIC: No palpable lymph nodes/no lymphedema. MUSCULOSKELETAL: Normal joints with no swelling. Muscle tone is normal. LAB REVIEW: 06/06/17 04:30 06/06/17 04:30 06/06/17 04:30: Sodium 143, Potassium 3.1 L, Chloride 109 H, Carbon Dioxide 24, Anion Gap 13.1, BUN 11, Creatinine 0.58 L, Estimated GFR (MDRD) 102.00, BUN/ Creatinine Ratio 18.96, Glucose 177 H, Calcium 7.7 L, Total Bilirubin 0.2, AST 34, ALT 60, Alkaline Phosphatase 113, Total Protein 5.1 L, Albumin 2.4 L, Globulin 2.7, Albumin/Globulin Ratio 0.89 06/06/17 04:30: WBC 10.42 H, RBC 3.87 L, Hgb 11.4 L, Hct 35.5 L, MCV 91.7, MCH 29.5, MCHC 32.1, RDW Coeff of Lester 13.8, Plt Count 191, Immature Gran % (Auto) 4.7, Neut % (Auto) 85.0, Lymph % (Auto) 5.7 L, [place] % (Auto) 4.1, Eos % (Auto) 0.0, Baso % (Auto) 0.5, Immature Gran # (Auto) 0.5, Neut # (Auto) 8.9 H, Lymph # (Auto) 0.6, [place] # (Auto) 0.4, Eos # (Auto) 0.0, Baso # (Auto) 0.1 ASSESSMENT: Please see below. 1. Rectal mucosal prolapse/rectal bleed 2. Peripheral arterial disease 3. Carotid occlusive disease PLAN: 1 Nuclear scan of the carotid arteries 2. K-Tab 20 mEq twice a day Plan and coordination of the patient's care discussed in the presence of Head Stock Operator and nurse. CONDITION: Stable SCRIBED BY: CASTILLO HALE, Juvenile Counselor scribed while in presence of service performed by Dr. BUDDY CHILDS on 06/06/17 ([id number])
[2017-06-06] MEDS ORDERED: PREPARATION H OINTMENT RC PRN (14:13)
[2017-06-06] MEDS: MEVACOR PO SCH (16:31)
[2017-06-06] MEDS: ATIVAN PO SCH (20:50)
[2017-06-06] MEDS: SEROQUEL PO SCH (20:50)
[2017-06-06] MEDS: ZANAFLEX PO SCH (20:51)
[2017-06-07] MEDS: NORCO 10-325 PO PRN ×4 (03:06→20:32)
[2017-06-07] MEDS: MORPHINE 2 MG/ML SYRINGE IVP PRN ×3 (05:25→18:37)
[2017-06-07] MEDS: SOLU-CORTEF 250 MG IVP SCH (05:26)
[2017-06-07] MEDS: XOPENEX 1.25 MG NEB SCH ×4 (05:45→22:25)
[2017-06-07] MEDS ORDERED: K-DUR PO STA (08:43)
[2017-06-07] MEDS ORDERED: K-DUR PO ONE ×2 (10:00→14:00)
[2017-06-07] MEDS: MIRALAX PO SCH (10:19)
[2017-06-07] MEDS: ARICEPT PO SCH (10:22)
[2017-06-07] MEDS: ASPIRIN EC PO SCH (10:22)
[2017-06-07] MEDS: DIOVAN PO SCH (10:23)
[2017-06-07] MEDS: CARDIZEM PO SCH ×2 (10:23→20:24)
[2017-06-07] MEDS: NAMENDA PO SCH ×2 (10:25→20:24)
[2017-06-07] MEDS: KEFLEX PO SCH ×2 (10:25→20:24)
[2017-06-07] MEDS: NICODERM 21 MG TD SCH (10:26)
[2017-06-07] MEDS: PROTONIX PO SCH (10:27)
[2017-06-07] MEDS: PLAVIX PO SCH (10:27)
[2017-06-07] MEDS: SPIRIVA IH SCH (10:28)
[2017-06-07] MEDS: SYMMETREL PO SCH (10:29)
[2017-06-07] MEDS: K-DUR PO SCH ×3 (10:31→16:47)
--- NOTE | 2017-06-07 10:42 | PCM.PROG ---
Attending Provider: ATTENDING PROVIDER: Dr. BUDDY CHILDS DATE OF SERVICE: 06/07/17 SUBJECTIVE: This 76 year old WHITE/ F was hospitalized 06/01/17 with rectal bleed, which is from mucosal prolapse. Abdominal pain resolved. Bronchitis is under control. Liver profile abnormal. Will discontinue Lovastatin. The patient has hypokalemia so will give potassium supplement. The patient is up and about. REVIEW OF SYSTEMS: CONSTITUTIONAL: No night sweats. No fatigue, malaise, lethargy. No fever or chills. HEENT: Eyes: No visual changes. No eye pain. No eye discharge. ENT: No runny nose. No epistaxis. No sinus pain. No odynophagia. No congestion. RESPIRATORY: Mild cough and congestion. No hemoptysis. No shortness of breath. CARDIOVASCULAR: No angina symptoms. No CHF symptoms. No atypical chest pain for CAD. No palpitations. No orthopnea.. GASTROINTESTINAL: No abdominal pain. No nausea or vomiting. No diarrhea or constipation. No hematemesis. No hematochezia. GENITOURINARY: No urgency. No frequency. No dysuria. No hematuria. No obstructive symptoms. No discharge. No pain. No significant abnormal bleeding. MUSCULOSKELETAL: No musculoskeletal pain; no joint swelling. NEUROLOGICAL: Awake, alert, oriented to time, place and person. No headache. No neck pain. No syncope. No seizures. No dizziness. PSYCHIATRIC: Not anxious. No depression. No suicidal thoughts. No homicidal thoughts. SKIN: No rash. No lesions. No wounds. ENDOCRINE: No unexplained weight loss. No weight gain. HEMATOLOGIC/LYMPHATIC: No anemia. No purpura. No petechiae. No prolonged or excessive bleeding. No palpable lymph nodes. PHYSICAL EXAMINATION: GENERAL: The patient is awake, alert and oriented, lying/sitting in bed in no distress. VITAL SIGNS: Temperature 98.0 F, Pulse 56, Respiratory Rate 12, BP 171/69, Pulse Ox 100% HEENT: Head normocephalic, atraumatic. Eyes: Extraocular muscles are intact. Pupils are equal, round and reactive to light and accommodation. Ears: No lesions. Nose appeared normal. Throat: No exudate or erythema. NECK: Supple. No JVD, no carotid bruit. No lymphadenopathy or thyromegaly. LUNGS: Decreased breath sounds with mild wheeze. Percussion note normal. Chest symmetrical. HEART: S1, S2, no S3. No murmurs. No cyanosis or clubbing. No ascites. Pulses: Dorsalis pedis and posterior tibial pulses +1 to +2 both sides. ABDOMEN: Soft. Non-tender. Bowel sounds active. No CVA tenderness. No mass felt. EXTREMITIES: No edema. Full range of motion of all extremities, equal. NEUROLOGIC: No focal deficit. Cranial nerves II through XII are grossly intact. No headache, no double vision or headache. SKIN: Warm and dry. Intact. Turgor-normal. LYMPHATIC: No palpable lymph nodes/no lymphedema. MUSCULOSKELETAL: Normal joints with no swelling. Muscle tone is normal. LAB REVIEW: 06/07/17 04:30 06/07/17 04:30 06/07/17 04:30: Sodium 144, Potassium 2.9 L, Chloride 106, Carbon Dioxide 26, Anion Gap 14.9, BUN 10, Creatinine 0.63, Estimated GFR (MDRD) 92.00, BUN/ Creatinine Ratio 15.87, Glucose 192 H, Calcium 7.7 L, Total Bilirubin 0.2, AST 104 H D, ALT 184 H D, Alkaline Phosphatase 117, Total Protein 4.9 L, Albumin 2.4 L, Globulin 2.5, Albumin/Globulin Ratio 0.96 06/07/17 04:30: WBC 10.92 H, RBC 3.82 L, Hgb 11.4 L, Hct 34.7 L, MCV 90.8, MCH 29.8, MCHC 32.9, RDW Coeff of Lester 13.8, Plt Count 186, Immature Gran % (Auto) 3.8, Neut % (Auto) 86.3, Lymph % (Auto) 4.5 L, [place] % (Auto) 4.9, Eos % (Auto) 0.0, Baso % (Auto) 0.5, Immature Gran # (Auto) 0.4, Neut # (Auto) 9.4 H, Lymph # (Auto) 0.5 L, [place] # (Auto) 0.5, Eos # (Auto) 0.0, Baso # (Auto) 0.1 ASSESSMENT: 1. Rectal bleed under control 2. Abdominal pain resolved 3. Bronchitis being treated 4. Hypokalemia being taken care of PLAN: 1. The patient will see colorectal specialist in [place], [place] on 06/22/17 2. The patient will see GI specialist at [facility] on 06/21/17 3. The patient will see vascular specialist at [facility] on 06/26/17 4. The patient is in agreement with all the above appointments 5. Keflex 500 mg p.o. b.i.d. 6. Prednisone 20 mg daily 7. D/C telemetry at 5 p.m. today 8. D/C Rocephin 9. Stop Lovastatin 10. K-Dur 20 mEq t.i.d. Plan and coordination of the patient's care discussed in the presence of Sports Broadcasting Internship and nurse. CONDITION: Stable SCRIBED BY: CASTILLO HALE Straightedge Man scribed while in presence of service performed by Dr. BUDDY CHILDS on 06/07/17 ([id number])
--- NOTE | 2017-06-07 12:19 | ECHO2D ---
Date of Exam: 06/06/17 Ordering Physician: DR. BUDDY CHILDS Room #: 109 Reason for Echo: ATRIAL FIBRILLATION, HYPERTENSION M-Mode Normal Adult Results LV Dimensions Normal Adult Results AoV Opening excursions >1.6 >1.6 LVEDD-base- 3.5-5.8 5.4 Ao root dimensions 2.0-3.7 3.2 LVESD-base- 3.1-4.6 L. Atrium dimensions 1.9-3.8 4.3 Post. Wall thickness 0.8-1.1 1.2 IV septum (thickness) 0.7-1.2 1.2 Post. Wall excursion 0.72-1.3 NORMAL Septal motion NORMAL Systolic motion R. Ventricular cavity 1.5-2.0 NORMAL LVEF 60% 51% Paradoxical septal wall motion NORMAL 2-D : 2-D M Mode Echocardiogram was performed using apical four chamber and left parasternal long and short axis views. Mitral, tricuspid and aortic valves appear to be normal. Contractility of the left ventricle seems to be normal, so is the cavity size. Enlarged Left atrial cavity size. Aortic root appears to be normal. There is no pericardial effusion. There is no thrombus noted in the left ventricular or left aortic cavity. No mitral valve prolapse noted. M-MODE: MV: NORMAL AV: NORMAL TV: NORMAL PV: CHAMBER SIZE: ENLARGED LEFT ATRIAL CAVITY WALL MOTION: NORMAL PERICARDIUM: NORMAL INTERPRETATION: 1. BORDERLINE LEFT VENTRICULAR HYPERTROPHY WITH ENLARGED LEFT ATRIAL CAVITY 2. NORMAL LEFT VENTRICULAR CONTRACTILITY 3. NORMAL VALVES MTDD
[2017-06-07] MEDS: PREDNISONE PO SCH (12:40)
[2017-06-07] MEDS: SEROQUEL PO SCH (20:24)
[2017-06-07] MEDS: ZANAFLEX PO SCH (20:25)
[2017-06-07] MEDS: ATIVAN PO SCH (20:25)
[2017-06-08] MEDS: MORPHINE 2 MG/ML SYRINGE IVP PRN ×2 (01:01→07:05)
[2017-06-08] MEDS: NORCO 10-325 PO PRN ×2 (04:59→10:41)
[2017-06-08] MEDS: PROTONIX PO SCH (05:34)
[2017-06-08] MEDS ORDERED: DULCOLAX RC STA (08:42)
[2017-06-08] MEDS: K-DUR PO SCH ×2 (09:16→12:51)
[2017-06-08] MEDS: ASPIRIN EC PO SCH (09:16)
[2017-06-08] MEDS: KEFLEX PO SCH (09:16)
[2017-06-08] MEDS: DIOVAN PO SCH (09:16)
[2017-06-08] MEDS: NAMENDA PO SCH (09:17)
[2017-06-08] MEDS: MIRALAX PO SCH (09:17)
[2017-06-08] MEDS: ARICEPT PO SCH (09:17)
[2017-06-08] MEDS: SYMMETREL PO SCH (09:17)
[2017-06-08] MEDS: PLAVIX PO SCH (09:17)
[2017-06-08] MEDS: CARDIZEM PO SCH (09:17)
[2017-06-08] MEDS: SPIRIVA IH SCH (09:22)
--- NOTE | 2017-06-08 10:10 | PCM.PROG ---
Attending Provider: ATTENDING PROVIDER: Dr. BUDDY CHILDS DATE OF SERVICE: 06/08/17 SUBJECTIVE: This 76 year old WHITE/ F was hospitalized 06/01/17 with rectal bleed from mucosal prolapse. The abdominal pain is more like gas pain. CT scan was negative except for abnormality in the rectum, which is prolapsed mucosa. Bronchitis has resolved. She is going to be seen by several consultants ( Vascular, GI and colorectal surgeon). REVIEW OF SYSTEMS: CONSTITUTIONAL: No night sweats. No fatigue, malaise, lethargy. No fever or chills. HEENT: Eyes: No visual changes. No eye pain. No eye discharge. ENT: No runny nose. No epistaxis. No sinus pain. No odynophagia. No congestion. RESPIRATORY: No cough, no congestion. No hemoptysis. No shortness of breath. CARDIOVASCULAR: No angina symptoms. No CHF symptoms. No atypical chest pain for CAD. No palpitations. No orthopnea.. GASTROINTESTINAL: Abdominal pain, likely gas pain. No nausea or vomiting. No diarrhea or constipation. No hematemesis. No hematochezia. GENITOURINARY: No urgency. No frequency. No dysuria. No hematuria. No obstructive symptoms. No discharge. No pain. No significant abnormal bleeding. MUSCULOSKELETAL: No musculoskeletal pain; no joint swelling. NEUROLOGICAL: Awake, alert, oriented to time, place and person. No headache. No neck pain. No syncope. No seizures. No dizziness. PSYCHIATRIC: Not anxious. No depression. No suicidal thoughts. No homicidal thoughts. SKIN: No rash. No lesions. No wounds. ENDOCRINE: No unexplained weight loss. No weight gain. HEMATOLOGIC/LYMPHATIC: No anemia. No purpura. No petechiae. No prolonged or excessive bleeding. No palpable lymph nodes. PHYSICAL EXAMINATION: GENERAL: The patient is awake, alert and oriented, sitting on side of bed in no distress. VITAL SIGNS: Temperature 98.5 F, Pulse 60, Respiratory Rate 16, BP 171/73, Pulse Ox 99% HEENT: Head normocephalic, atraumatic. Eyes: Extraocular muscles are intact. Pupils are equal, round and reactive to light and accommodation. Ears: No lesions. Nose appeared normal. Throat: No exudate or erythema. NECK: Supple. No JVD, no carotid bruit. No lymphadenopathy or thyromegaly. LUNGS: Decreased breath sounds, clear to auscultation. Percussion note normal. Chest symmetrical. HEART: S1, S2, no S3. No murmurs. No cyanosis or clubbing. No ascites. Pulses: Dorsalis pedis and posterior tibial pulses +1 to +2 both sides. ABDOMEN: Soft. Non-tender. Bowel sounds active. No CVA tenderness. No mass felt. EXTREMITIES: No edema. Full range of motion of all extremities, equal. NEUROLOGIC: No focal deficit. Cranial nerves II through XII are grossly intact. No headache, no double vision or headache. SKIN: Warm and dry. Intact. Turgor-normal. LYMPHATIC: No palpable lymph nodes/no lymphedema. MUSCULOSKELETAL: Normal joints with no swelling. Muscle tone is normal. LAB REVIEW: 06/08/17 05:30 06/08/17 05:30 06/08/17 05:30: Sodium 145, Potassium 3.8, Chloride 108 H, Carbon Dioxide 27, Anion Gap 13.8, BUN 11, Creatinine 0.54 L, Estimated GFR (MDRD) 110.00, BUN/ Creatinine Ratio 20.37, Glucose 114, Calcium 7.9 L, Total Bilirubin 0.3, AST 60 H D, ALT 162 H, Alkaline Phosphatase 116, Total Protein 5.2 L, Albumin 2.4 L, Globulin 2.8, Albumin/Globulin Ratio 0.86 06/08/17 05:30: WBC 10.84 H, RBC 4.28, Hgb 12.6, Hct 39.4, MCV 92.1, MCH 29.4, MCHC 32.0, RDW Coeff of Lester 14.2, Plt Count 182, Immature Gran % (Auto) 4.1, Neut % (Auto) 81.0, Lymph % (Auto) 8.0 L, [place] % (Auto) 6.4, Eos % (Auto) 0.0, Baso % (Auto) 0.5, Immature Gran # (Auto) 0.4, Neut # (Auto) 8.8 H, Lymph # ( Auto) 0.9, [place] # (Auto) 0.7, Eos # (Auto) 0.0, Baso # (Auto) 0.1 ASSESSMENT: Please see below. 1. Rectal bleed with prolapse mucosa of the rectum under control 2. Chronic bronchitis 3. Chronic lung disease 4. Occluded right internal carotid artery 5. Hepatic steatosis being followed PLAN: 1. D/C Morphine 2. Dulcolax suppository to help with gas 3. Up and about 4. Continue rest of medications 5. The patient does go outside to smoke a lot 6. Miralax two scoops a day 7. Encouraged to be up and about 8. The patient has been scheduled for followups as outpatient with the following: Dr. Rosario/Chandra, GI, 06/21/17, [facility]; Vascular Specialist, Dr. Ybarra on 06/26/17; Dr. Desouza, Colorectal surgeon, [place], [place] . Plan and coordination of the patient's care discussed in the presence of Traffic Or System Dispatcher and nurse. EDUCATION: Counseling for smoking done. CONDITION: Stable SCRIBED BY: CASTILLO HALE, Self Sealing Fuel Tank Builder scribed while in presence of service performed by Dr. BUDDY CHILDS on 06/08/17 ([id number])
[2017-06-08] MEDS: NICODERM 21 MG TD SCH (10:27)
[2017-06-08 11:09] VITALS: BP 156/79; TEMP 97.9
[2017-06-08] MEDS: XOPENEX 1.25 MG NEB SCH (11:21)
[2017-06-08] MEDS ORDERED: MORPHINE 2 MG/ML SYRINGE IVP STA (12:43)
[2017-06-08] MEDS ORDERED: MORPHINE 2 MG/ML SYRINGE ONE (12:48)
--- NOTE | 2017-06-08 12:50 | CM.DICTOOL ---
ADMISSION: 06/01/17 15:15 DISCHARGE: JUNE 08, 2017 DATE OF SERVICE: 06/08/17 FINAL DIAGNOSIS RECTAL BLEEDING PROLAPSE RECTAL MUCOSAL ABDOMINAL PAIN COPD, MILD (OXYGEN) (PFT 06/04/17) BRONCHITIS (ACUTE) HYPOKALEMIA, RESOLVED LVH WITH LVEF 51% (06/06/2017) BILATERAL RENAL CYSTS NEPHROLITHIASIS, LEFT OCCLUSION, RIGHT ICA ANEMIA HISTORY OF: LEFT TEMPORAL LOBE INFARCT DEMENTIA PARKINSON'S TREMOR S/P CHOLECYSTECTOMY DATE UNKNOWN S/P HYSTERECTOMY DATE UNKNOWN S/P BILATERAL BREAST IMPLANTS 25 YEARS AGO S/P LEFT FOOT SURGERY 5 YEARS AGO THYROIDECTOMY 20 YEARS AGO TOBACCO ABUSE, HEAVY LAST VITALS Temp Pulse Resp BP Pulse Ox 97.9 F 72 18 156/79 H 96 06/08/17 10:00 06/08/17 10:00 06/08/17 10:00 06/08/17 10:00 06/08/17 10:00 TAKE THESE MEDICATIONS Hydrocodone Bitart/Acetaminophen ([place] 10-325) 1 tab PO QID PRN PRN Reason: pain Last Admin: 06/08/17 10:41 Dose: 1 tab Amantadine HCl (Symmetrel) 100 mg PO DAILY [facility] Last Admin: 06/08/17 09:17 Dose: 100 mg Aspirin (Aspirin Ec) 81 mg PO DAILYWM [facility] Last Admin: 06/08/17 09:16 Dose: 81 mg Cephalexin (Keflex) 500 mg PO Q12HR [facility] Last Admin: 06/08/17 09:16 Dose: 500 mg Clopidogrel Bisulfate (Plavix) 75 mg PO DAILY [facility] Last Admin: 06/08/17 09:17 Dose: 75 mg Diltiazem HCl (Cardizem) 60 mg PO Q12HR [facility] Last Admin: 06/08/17 09:17 Dose: 60 mg Donepezil HCl (Aricept) 10 mg PO DAILY [facility] Last Admin: 06/08/17 09:17 Dose: 10 mg Lorazepam (Ativan) 1 mg PO BEDTIME [facility] Last Admin: 06/07/17 20:25 Dose: 1 mg Memantine HCL (Namenda XR) 28 mg PO BEDTIME [facility] Last Admin: 06/08/17 09:17 Dose: 10 mg Phenyleph/Shark Oil/Min Oil/Petrol (Preparation H Ointment) 1 applic RC QID PRN PRN Reason: Hemorrhoidal pain/rectal pain Last Admin: 06/06/17 15:37 Dose: 1 applic Polyethylene Glycol (Miralax) 17 gm PO DAILY [facility] Last Admin: 06/08/17 09:17 Dose: 17 gm Potassium Chloride (K-Dur) 20 meq PO DAILY WM [facility] Last Admin: 06/08/17 09:16 Dose: 20 meq Prednisone (Prednisone) 20 mg PO DAILYWM [facility] Last Admin: 06/07/17 12:40 Dose: 20 mg Quetiapine Fumarate (Seroquel) 50 mg PO BEDTIME [facility] Last Admin: 06/07/17 20:24 Dose: 50 mg Tiotropium North (Spiriva) 1 cap IH DAILY [facility] Last Admin: 06/08/17 09:22 Dose: 1 cap Tizanidine HCl (Zanaflex) 4 mg PO BEDTIME [facility] Last Admin: 06/07/17 20:25 Dose: 4 mg Valsartan (Diovan) 320 mg PO DAILY [facility] Last Admin: 06/08/17 09:16 Dose: 320 mg Protonix 40 mg PO Daily Last Admin: 06/08/17 09:16 MEDICATION CHANGES STOP LOVASTATIN ALLERGIES Iodinated Contrast- Oral and IV Dye [Iodinated Contrast Media - IV Dye] Adverse Reaction (Verified 11:13) NEW PRESCRIPTIONS: Keflex 500 mg BID for 5 days Prednisone 20 mg Daily for 5 days Cardizem 60 mg BID K-dur 20 meq daily for 10 days Miralax 17 Grams daily (OTC) Protonix 40 mg daily SMOKING: Advised to stop smoking DISEASE SPECIFIC EDUCATION: Smoking Medications Constipation Appointments Use of steroids and risk of GI irritation and bone demineralization LAB REVIEW: 06/08/17 05:30 06/08/17 05:30 06/08/17 05:30: Sodium 145, Potassium 3.8, Chloride 108 H, Carbon Dioxide 27, Anion Gap 13.8, BUN 11, Creatinine 0.54 L, Estimated GFR (MDRD) 110.00, BUN/ Creatinine Ratio 20.37, Glucose 114, Calcium 7.9 L, Total Bilirubin 0.3, AST 60 H D, ALT 162 H, Alkaline Phosphatase 116, Total Protein 5.2 L, Albumin 2.4 L, Globulin 2.8, Albumin/Globulin Ratio 0.86 06/08/17 05:30: WBC 10.84 H, RBC 4.28, Hgb 12.6, Hct 39.4, MCV 92.1, MCH 29.4, MCHC 32.0, RDW Coeff of [place] 14.2, Plt Count 182, Immature Gran % (Auto) 4.1, Neut % (Auto) 81.0, Lymph % (Auto) 8.0 L, [place] % (Auto) 6.4, Eos % (Auto) 0.0, Baso % (Auto) 0.5, Immature Gran # (Auto) 0.4, Neut # (Auto) 8.8 H, Lymph # ( Auto) 0.9, [place] # (Auto) 0.7, Eos # (Auto) 0.0, Baso # (Auto) 0.1 PLAN: Discharge home Diet: Regular as tolerated Activity: Resume as tolerated Continue use of oxygen as directed at home An appointment is scheduled with Dr. Hinkle on June 13 at 11:45 am An appointment is scheduled at [facility] on June 21 at 9 am An appointment is scheduled with Win Mercado on June 22 at 10 am in [place], [place] (take CD) An appointment is [facility] with [facility] on June 26 at 8:45 am (take CD) Ms. Schulz is alert and oriented x 3. She is independent with ambulation and activities of daily living. She is ambulatory without use of assistive device. She is short of air with exertion, but has oxygen available at home. She denies nausea and is able to eat 100% of her meals. She reports several large bowel movements today. She is continent of bladder and bowel. She lives with her daughter and relies on her daughter for transportation needs. Skin is intact , but has areas of bruising noted to the upper extremities. Brooks Hinkle MD
[2017-06-08] MEDS: PREDNISONE PO SCH (12:51)
--- NOTE | 2017-06-12 11:38 | DS ---
DATE OF SERVICE: 06/08/17 FINAL DIAGNOSIS: 1. Rectal bleeding 2. Prolapse rectal mucosal 3. Abdominal pain 4. COPD, Mild (oxygen)(PFT06/04/17) 5. Bronchitis (acute) 6. Hypokalemia, resolved 7. LVH with LVEF 51% (06/06/17) 8. Nephrolithiasis, left 9. Occlusion, right ICA 10.Anemia 11.History of left temporal lobe infarct 12.Dementia 13.Parkinson's Tremor 14.Status post cholecystectomy date unknown 15.Status post hysterectomy date unknown 16.Status post bilateral breath implants 25 years ago 17.Status post left foot surgery 5 years ago 18.Thyroidectomy 20 years ago 19.Tobacco abuse, heavy LAST VITALS: Temperature 97.9, pulse 72, respiratory rate 18, blood pressure 156/79 and pulse ox 96%. DISCHARGE INSTRUCTIONS: Discharge home. Stop Lovastatin. Continue use of oxygen at home as directed. An appointment is scheduled with Dr. Hinkle on June 13 at 11:45am. An appointment is scheduled at [facility] on June 21 at 9AM. An appointment is scheduled with Dr. Win Desouza on June 22 at 10am in [place], [place] (take CD). An appointment is scheduled with [facility] on June 26 at 8:45am (take CD). MEDICATIONS AT DISCHARGE: [place] 10-325 one tablet PO four times a day PRN Symmetrel 100mg PO daily Aspirin 81mg Po daily Keflex 500mg PO Q 12 hours Plavix 75mg PO daily Cardizem 60mg PO Q 12 hours Aricept 10mg PO daily Ativan 1mg PO bedtime Namenda XR 28mg PO bedtime Preparation H ointment one application RC four times a day PRN Miralax 17 gram PO daily K-Dur 20meq Po daily Prednisone 20mg Po daily Seroquel 50mg PO bedtime Spiriva 1 capsule IH daily Zanaflex 4mg PO bedtime Diovan 320mg PO daily Protonix 40mg PO daily ALLERGIES: Iodinated contrast-oral and IV dye NEW PRESCRIPTIONS: Keflex 500mg PO twice a day for 5 days Prednisone 20mg PO daily for 5 days Cardizem 60mg PO twice a day K-Dur 20meq daily for 10 days Miralax 17 grams daily (OTC) Protonix 40mg PO daily DIET INSTRUCTIONS: Regular as tolerated ACTIVITY: Resume as tolerated SMOKING: Advised to stop smoking DISEASE SPECIFIC EDUCATION: Smoking Medications Constipation Appointments Use of steroids and risk of GI irritation and bone demineralization HOSPITAL COURSE: 76 year old white female hospitalized with history of rectal bleed which usually occurred with sneezing and had a few drops of blood coming out. There was no active GI bleed during the stay in the hospital for nearly a week. We didn't see any obvious rectal bleed. The patient on further examination has prolapse rectal mucosa. She has tight anal sphincter with constipation. She getting intraabdominal pain because of trapping of gas in the lower bowel along with constipation. The patient is strongly advised to cut down on narcotics. The patient underwent CT scan of the abdomen which was practically negative except for soft tissue as of material in the rectum. The patient was seen by Dr. Guzman on consultation and he on rectal exam found prolapsed rectal mucosa in the area [facility] none of the surgeons deal with prolapsed rectal mucosa. The patient will be referred to [place] to be seen by Rectal surgeon on the June. [facility] curator of photography and prints is going to see her on June. [facility] vascular surgeon is going to see her on 26 June 2017. The patient has abnormal liver profile. She has been taken off Statins. Liver will be monitored as an outpatient. Her appetite is good. She is up and about and has intermittently normal bowel movements. She was treated for hypokalemia. Her Potassium at the time of discharge is 3.8. 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 She is going to be referred to vascular surgeon. She used to see Vascular surgeon in the past but stopped following it. The patient is a smoker and her continued to go out and smoke in spite of the fact that hospital has complete ban on smoking. Counseling for smoking done. The patient has severe chronic lung disease. She was explained that she is high surgical risk with her existing medical problem. CONDITION: Stable PROGNOSIS: Poor TIME SPENT: More than 60 minutes. KOREY
--- NOTE | 2017-06-12 11:40 | PN ---
06/01/17: Level 5 06/02/17: Intermediate 06/03/17: Intermediate 06/04/17: Intermediate 06/05/17: Intermediate 06/06/17: Intermediate 06/07/17: Intermediate 06/08/17: D as in discharge MTDD
== END 2017-06-08 13:45 | disposition home or self-care (01) | DRG 394 ==
LOC: MEDSURG A 15:15
PROVIDERS: ADMIT Internal Medicine; ATTEND Internal Medicine
DX: K62.3 Rectal prolapse (principal); K62.5 Hemorrhage of anus and rectum; R10.32 Left lower quadrant pain; R10.31 Right lower quadrant pain; R19.7 Diarrhea, unspecified; K59.00 Constipation, unspecified; R06.02 Shortness of breath; I65.21 Occlusion and stenosis of right carotid artery; I48.0 Paroxysmal atrial fibrillation; I51.7 Cardiomegaly; J20.9 Acute bronchitis, unspecified; J44.0 Chronic obstructive pulmonary disease with (acute) lower respiratory infection; R97.0 Elevated carcinoembryonic antigen [CEA]; R74.8 Abnormal levels of other serum enzymes; I73.9 Peripheral vascular disease, unspecified; N28.1 Cyst of kidney, acquired; N20.0 Calculus of kidney; K76.0 Fatty (change of) liver, not elsewhere classified; F03.90 Unspecified dementia, unspecified severity, without behavioral disturbance, psychotic disturbance, mood disturbance, and anxiety; G20 Parkinson's disease; D64.9 Anemia, unspecified; E87.6 Hypokalemia; F17.210 Nicotine dependence, cigarettes, uncomplicated; Z79.891 Long term (current) use of opiate analgesic; Z79.02 Long term (current) use of antithrombotics/antiplatelets; Z79.899 Other long term (current) drug therapy; Z90.49 Acquired absence of other specified parts of digestive tract; Z86.73 Personal history of transient ischemic attack (TIA), and cerebral infarction without residual deficits
CPT/HCPCS: 36415; 76770; 80053; 81001; 82272; 82378; 82803; 85007; 85025; 93005; 93010; 94640; 99223; 99232; 99239

== ENCOUNTER 2017-07-06 14:35 | Outpatient (CLI) | payer OTHER ==
--- NOTE | 2017-07-06 15:28 | US ---
EXAM: Thyroid ultrasound History: Thyroid nodules. Technique: Multiple sonographic images through the thyroid were obtained. Color duplex Doppler was u sed to interrogate vascular flow. Findings: Previous left thyroidectomy. No residual thyroid tissue seen within the left thyroid bed. The thyroid isthmus measures zero point 0.5 cm in thickness. The right lobe of the thyroid measures 5.6 cm x 2.2 cm x 1.8 cm and demonstrates multiple nodules wit h the largest being complex in the inferior pole measuring 1.9 cm x 1.3 cm x 1.3 cm. No extrathyroidal masses are identified. The thyroid is not hypervascular. Impression: Mildly enlarged multinodular right thyroid lobe with 1.9 cm dominant complex nodule. Giv en the size, tissue sampling can be performed for this dominant nodule. Otherwise, recommend at [facility] a 6-month follow-up ultrasound.
== END 2017-07-06 14:36 | disposition home or self-care (01) ==
LOC: RAD 14:35
PROVIDERS: ATTEND Internal Medicine
DX: E04.1 Nontoxic single thyroid nodule (principal)

== ENCOUNTER 2018-04-29 15:10 | Outpatient (CLI) ==
--- NOTE | 2018-04-29 15:41 | US ---
EXAM: Nonvascular ultrasound of the left lower extremity. History: Left lower extremity pain and swelling. Technique: Multiple sonographic images through the left lower extremity were obtained. Color duplex Doppler was used to interrogate vascular flow. Findings / impression: 5.8 cm x 2.4 cm x 3.7 cm complicated cyst with thick septations seen within th e soft tissues behind the left knee. Differential diagnosis includes Sim's cyst, resolving hematom a and less likely abscess.
--- NOTE | 2018-04-29 16:34 | CT ---
EXAM: CT of the left knee without contrast History: Left knee pain and swelling. Comparison: Ultrasound of the left lower extremity 04/29/2018 Technique: Multiplanar CT images through the left knee were obtained without the administration of I V contrast. Findings: Osteopenia. No acute fracture or dislocation. Moderate tricompartmental joint space narr owing with marginal sclerosis and small osteophytes. There is chondrocalcinosis within the menisci a nd. No joint effusion. 3.3 cm x 2.9 cm of 6.2 cm lobulated collection of fluid posterior to the lef t knee lateral aspect. 1.8 cm x 1.1 cm to 3.0 cm Sim's cyst with internal debris. Impression: 1. No acute osseous abnormality. 2. 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 3. Large lobulated collection of fluid posterior to the left knee most compatible with a resolving h ematoma. 4. Small mildly complicated Sim's cyst
== END 2018-04-29 15:11 | disposition home or self-care (01) ==
LOC: RAD 15:10
PROVIDERS: ATTEND Internal Medicine
DX: M79.89 Other specified soft tissue disorders (principal)
CPT/HCPCS: 76882

== ENCOUNTER 2018-06-28 18:49 | Emergency (ER) ==
[2018-06-28 18:54] VITALS: BP 176/83; TEMP 99.6; BMI 24.4
--- NOTE | 2018-06-28 22:08 | ED.PDOC ---
General ED Provider: Dr. SHIRA BOOTH MD Chief Complaint: Laceration Stated Complaint: dog bit her left arm Time Seen by Physician: 20:00 Mode of Arrival: Walk-In Information Source: Patient, Family Exam Limitations: No limitations Primary Care Provider: BUDDY CHILDS Nursing and Triage Documentation Reviewed and Agree: Yes Does patient meet sepsis criteria?: No If yes, has appropriate treatment been initiated?: Yes System Inflammatory Response Syndrome: Not Applicable Sepsis Protocol: For patient's 13 years and over: Temp is 96.8 and below OR 101 and greater Pulse >90 BPM Resp >20/minute Acutely Altered Mental Status Are patient's symptoms suggestive of a new infection, such as: -Pneumonia -Skin, Soft Tissue -Endocarditis -UTI -Bone, Joint Infection -Implantable Device -Acute Abdominal Infection -Wound Infection -Meningitis -Blood Stream Catheter Infection -Unknown Review of Systems - Review Of Systems Constitutional: Reports: No symptoms Eyes: Reports: No symptoms Ears, Nose, Mouth, Throat: Reports: No symptoms Respiratory: Reports: No symptoms Cardiac: Reports: No symptoms GI: Reports: No symptoms : Reports: No symptoms Musculoskeletal: Reports: No symptoms Skin: Reports: No symptoms Neurological: Reports: No symptoms Endocrine: Reports: No symptoms Hematologic/Lymphatic: Reports: No symptoms All Other Systems: Reviewed and Negative Past Medical History - Past Medical History Previously Healthy: No Endocrine: Reports: None Cardiovascular: Reports: Hypertension Respiratory: Reports: COPD Hematological: Reports: None Gastrointestinal: Reports: None Genitourinary: Reports: None Neuro/Psych: Reports: Dementia Musculoskeletal: Reports: None Cancer: Reports: None Last Menstrual Period: n/a - Surgical History General Surgical History: Reports: Hysterectomy, Cholecystectomy - Family History Family History: Reports: Unknown - Social History Smoking Status: Current every day smoker, Heavy tobacco smoker Hx Substance Use: No Alcohol Screening: None Physical Exam - Physical Exam Appearance: Thin Pain Distress: Mild Eyes: SAMANTA, EOMI, Conjunctiva clear ENT: Ears normal, Nose normal, Oropharynx normal Respiratory: Airway patent, Breath sounds clear, Breath sounds equal, Respirations nonlabored Cardiovascular: RRR, Pulses normal, No rub, No murmur GI/: Soft, Nontender, No masses, Bowel sounds normal, No Organomegaly Musculoskeletal: Normal strength, ROM intact, No edema, No calf tenderness Skin: Warm (small .5 cm jagged sq skin tear), Dry, Normal color Neurological: Sensation intact, Motor intact, Reflexes intact, Cranial nerves intact, Alert, Oriented Psychiatric: Affect appropriate, Mood appropriate Critical Care Note - Critical Care Note Total Time (mins): 0 Course - Course Vital Signs: Temp Pulse Resp BP Pulse Ox 06/28/18 18:50 99.6 F 82 20 176/83 H 92 L Departure - Departure Time of Disposition: 20:30 Disposition: HOME SELF-CARE Discharge Problem: Laceration of left upper arm Qualifiers: Encounter type: initial encounter Qualified Code(s): S41.112A - Laceration without foreign body of left upper arm, initial encounter Instructions: Laceration (ED) Condition: Good Pt referred to PMD for follow-up: Yes IPMP verified?: No Prescriptions: Amoxicillin 500 mg PO BID 7 Days #14 capsule Allergies/Adverse Reactions: Allergies Iodinated Contrast- Oral and IV Dye [Iodinated Contrast Media - IV Dye] Adverse Reaction (Verified 06/28/18 18:54) Home Medications: Ambulatory Orders Amantadine HCl [Amantadine] 100 mg PO DAILY 10/29/12 Lorazepam [Ativan] 1 mg PO BEDTIME 10/29/12 Quetiapine Fumarate [Seroquel] 50 mg PO BEDTIME 10/29/12 Donepezil HCl 10 mg PO DAILY 06/23/16 Hydrocodone Bit/Acetaminophen [[place] 10-325] 1 tab PO QID PRN 06/23/16 Memantine HCl [Namenda Xr] 28 mg PO BEDTIME 06/23/16 Tizanidine HCl 4 mg PO BEDTIME 06/23/16 Valsartan 320 mg PO DAILY 06/23/16 Aspirin [Aspirin EC] 81 mg PO DAILYWM 07/27/16 Clopidogrel Bisulfate [Plavix] 75 mg PO DAILY 06/01/17 Tiotropium [place] [Spiriva] 1 cap IH DAILY 06/01/17 Pantoprazole Sodium [Protonix] 40 mg PO DAILY #30 tablet. 06/08/17 Amoxicillin 500 mg PO BID 7 Days #14 capsule 06/28/18 Transfer Form Completed: No Disposition Discussed With: Patient
== END 2018-06-28 22:18 | disposition home or self-care (01) ==
LOC: ED 18:49
DX: S41.112A Laceration without foreign body of left upper arm, initial encounter (principal); W54.0XXA Bitten by dog, initial encounter; F17.210 Nicotine dependence, cigarettes, uncomplicated
CPT/HCPCS: 99283

== ENCOUNTER 2018-09-25 10:41 | Inpatient (IN) | payer OTHER ==
[2018-09-25] MEDS ORDERED: SODIUM CHLORIDE 1,000 ML IV STA (11:05)
[2018-09-25] MEDS ORDERED: K-DUR PO STA ×2 (11:59→13:20)
[2018-09-25] MEDS ORDERED: POTASSIUM CHLORIDE PREMIX RUN 10 MEQ in PREMIX 100 ML WATER 1 BAG IV STA (11:59)
--- NOTE | 2018-09-25 12:03 | ED.PDOC ---
General ED Provider: Dr. JERRY ROBERT Chief Complaint: Weakness Stated Complaint: GENERALIZED WEAKNESS , DECREASED L.O.C,ABDOMINAL PAIN, COUGH. pt is reported per her sleepy however easily arousable smokes in excess of 2 pks/day.and is on 3L o2 at home. Time Seen by Physician: 10:45 (nurse present at all times ) Mode of Arrival: Wheelchair Information Source: Patient, Family Exam Limitations: No limitations (conversed gave a fair history not altered ) Primary Care Provider: BUDDY CHILDS Referred to ED by: Other Nursing and Triage Documentation Reviewed and Agree: Yes Does patient meet sepsis criteria?: No System Inflammatory Response Syndrome: Not Applicable Sepsis Protocol: For patient's 13 years and over: Temp is 96.8 and below OR 101 and greater Pulse >90 BPM Resp >20/minute Acutely Altered Mental Status Are patient's symptoms suggestive of a new infection, such as: -Pneumonia -Skin, Soft Tissue -Endocarditis -UTI -Bone, Joint Infection -Implantable Device -Acute Abdominal Infection -Wound Infection -Meningitis -Blood Stream Catheter Infection -Unknown Neurological Complaint Exam - Weakness Complaint/Exam Last Known Well: 1 week Onset: Gradual Duration: 7 days Symptoms Are: Still present Timing: Constant Episodes Lasting: Days Initial Severity: Mild Current Severity: Mild Character: Reports: Weak Aggravating: Reports: Headache Alleviating: Reports: None Associated Signs and Symptoms: Reports: Decreased oral intake. Denies: Nausea, Vomiting, Diaphoresis, Tinnitus, Chest pain, Short of air, Palpitations, Unsteady gait, GI blood loss, Visual changes, Change in medication, Change in diet, OTC meds, Loss of balance Related History: Similar episode Related Surgical History: Reports: None JVD Present: No Carotid Bruit Present: No Glascow Coma Scale (see protocol): 15 Nystagmus Present: No Gag Reflex Present: Yes Meningeal Signs Positive: No Focal Weakness: Present: None Focal Sensory Loss: Present: None Gait: Normal Differential Diagnoses: Dysrhythmia, Hypovolemia, Metabolic abnormalities Quality Indicators for Cardiac Chest Pain: EKG in 10min. Quality Indicators for AMI: EKG in 10min. Quality Indicator For Non-Traumatic Chest Pain/Syncope: EKG Performed Review of Systems - Review Of Systems Constitutional: Reports: Malaise, Weakness Eyes: Reports: No symptoms Ears, Nose, Mouth, Throat: Reports: No symptoms Respiratory: Reports: Cough Cardiac: Reports: No symptoms GI: Reports: Abdominal pain : Reports: No symptoms Musculoskeletal: Reports: No symptoms Skin: Reports: No symptoms Neurological: Reports: Headache Endocrine: Reports: No symptoms Hematologic/Lymphatic: Reports: No symptoms All Other Systems: Reviewed and Negative Past Medical History - Past Medical History Previously Healthy: No Endocrine: Reports: None Cardiovascular: Reports: Hypertension Respiratory: Reports: COPD Hematological: Reports: None Gastrointestinal: Reports: None Genitourinary: Reports: Other (hypokalemia) Neuro/Psych: Reports: Dementia Musculoskeletal: Reports: None Cancer: Reports: None Last Menstrual Period: n/a - Surgical History General Surgical History: Reports: Hysterectomy, Cholecystectomy - Family History Family History: Reports: Unknown - Social History Smoking Status: Current every day smoker, Heavy tobacco smoker Hx Substance Use: No Alcohol Screening: None Physical Exam - Physical Exam Appearance: Ill-appearing Ill-appearing: Mild Pain Distress: Mild Eyes: SAMANTA, EOMI, Conjunctiva clear ENT: Dry mucosa Respiratory: Breath sounds diminished, Rhonchi Cardiovascular: RRR, Pulses normal, No rub, No murmur GI/: Soft, Nontender, No masses, Bowel sounds normal, No Organomegaly Musculoskeletal: Normal strength, ROM intact, No edema, No calf tenderness Skin: Warm, Dry, Normal color Neurological: Sensation intact, Motor intact, Reflexes intact, Cranial nerves intact, Alert, Oriented Psychiatric: Affect appropriate, Mood appropriate - NIH Stroke Scale 1a. Level of Consciousness: 0=Alert and keenly responsive 1b. Level of Consciousness Questions: 0=Answers correctly to two questions 1c. Level of Consciousness Commands: 0=Performs two tasks correctly 2. Best Gaze: 0=Normal 3. Visual: 0=No visual loss 4. Facial Palsy: 0=Normal 5a. Motor Left Arm: 0=No drift,arm holds 90 degrees for 10 sec., leg 30 degrees for 5 sec. 5b. Motor Right Arm: 0=No drift,arm holds 90 degrees for 10 sec., leg 30 degrees for 5 sec. 6a. Motor Left Le=No drift,arm holds 90 degrees for 10 sec., leg 30 degrees for 5 sec. 6b. Motor Right Le=No drift,arm holds 90 degrees for 10 sec., leg 30 degrees for 5 sec. 7. Limb Ataxia: 0=Absent 8. Sensory: 0=Normal 10. Dysarthria: 0=Normal 11. Extincion and Inattention: 0=Normal Stroke Scale Total: 0 Interpretation - It Technician Rate: Normal Rhythm: Sinus Ectopy: None - EKG Interpretation Rate: Normal Rhythm: Sinus Ectopy: None [place]: NL ST Segment: Normal Re-Evaluation - Re-Evaluation Time of Re-Evaluation: 12:06 Status: Unchanged Vital Signs Stable: Yes Pain Level: 0 Appearance: NAD Lungs: Clear Skin: Warm and Dry Neuro: Alert and Oriented X3 CV: RRR Additional Comments: no deficits noted Physician Notification - Case Discussed Physician Notified: TOMAS Time of Notification: 14:25 (ADMITT) Admit/Transition Orders Entered by ED Provider: Yes Admit To: Inpatient Critical Care Note - Critical Care Note Total Time (mins): 0 Course - Course Hematology/Chemistry: 09/25/18 11:25 09/25/18 11:25 Orders, Labs, Meds: Lab Review 09/25/18 09/25/18 09/25/18 10:59 11:25 11:25 WBC 8.29 RBC 3.93 L Hgb 11.8 L Hct 38.1 MCV 96.9 MCH 30.0 MCHC 31.0 L RDW Coeff of [place] 15.1 H Plt Count 279 Immature Gran % (Auto) 0.8 Neut % (Auto) 70.7 Lymph % (Auto) 12.8 [place] % (Auto) 9.2 Eos % (Auto) 5.8 Baso % (Auto) 0.7 Immature Gran # (Auto) 0.1 Neut # (Auto) 5.9 Lymph # (Auto) 1.1 [place] # (Auto) 0.8 Eos # (Auto) 0.5 Baso # (Auto) 0.1 Puncture Site R radial O2 Saturation 91.0 L ABG pH 7.375 ABG pCO2 41.9 ABG pO2 62.0 L ABG HCO3 24.5 ABG Total CO2 26 ABG Base Excess -1 Allan Test Positive FiO2 % 21.0 Sodium 141.6 Potassium 2.84 L Chloride 109.2 H Carbon Dioxide 25.8 Anion Gap 9.44 BUN 12.2 Creatinine 0.52 L Estimated GFR (MDRD) 115.00 BUN/Creatinine Ratio 23.46 Glucose 89.8 Lactic Acid Calcium 7.44 L Total Bilirubin 0.46 AST 18.9 ALT 19.5 Alkaline Phosphatase 146.3 H Total Creatine Kinase 38.0 Troponin I < 0.012 Total Protein 5.21 L Albumin 2.39 L Globulin 2.82 Albumin/Globulin Ratio 0.84 Procalcitonin 09/25/18 09/25/18 11:25 11:25 WBC RBC Hgb Hct MCV MCH MCHC RDW Coeff of [place]ester Plt Count Immature Gran % (Auto) Neut % (Auto) Lymph % (Auto) [place] % (Auto) Eos % (Auto) Baso % (Auto) Immature Gran # (Auto) Neut # (Auto) Lymph # (Auto) [place] # (Auto) Eos # (Auto) Baso # (Auto) Puncture Site O2 Saturation ABG pH ABG pCO2 ABG pO2 ABG HCO3 ABG Total CO2 ABG Base Excess Allan Test FiO2 % Sodium Potassium Chloride Carbon Dioxide Anion Gap BUN Creatinine Estimated GFR (MDRD) BUN/Creatinine Ratio Glucose Lactic Acid 1.18 Calcium Total Bilirubin AST ALT Alkaline Phosphatase Total Creatine Kinase Troponin I Total Protein Albumin Globulin Albumin/Globulin Ratio Procalcitonin 5.57 Orders Category Date Time Status ABG DRAW REQUEST Stat CARDIO 09/25/18 10:59 Completed EKG-(ED ONLY) Stat CARDIO 09/25/18 11:00 Completed ED IV/MEDIPORT/POWERPORT .ONCE EMERGENCY 09/25/18 11:05 Active ABG Stat LAB 09/25/18 10:59 Completed BLOOD CULTURE (ED ONLY) Stat LAB 09/25/18 11:25 Received CBC W/ AUTO DIFF Stat LAB 09/25/18 11:25 Completed COMPREHENSIVE METABOLIC PANEL Stat LAB 09/25/18 11:25 Completed CREATINE KINASE Stat LAB 09/25/18 11:25 Completed LACTIC ACID Stat LAB 09/25/18 11:25 Completed PROCALCITONIN Stat LAB 09/25/18 11:25 Completed TROPONIN I Stat LAB 09/25/18 11:25 Completed 0.9 % Sodium Chloride [Saline Flush] MEDS 09/25/18 11:05 Active 1 syr IVF PRN PRN Potassium Chloride [K-Dur] MEDS 09/25/18 11:59 Discontinued 40 meq PO ONCE STA Potassium Chloride [K-Dur] MEDS 09/25/18 13:20 Discontinued 40 meq PO ONCE STA Potassium Chloride [Potassium Chloride Premix [place]] 10 MEDS 09/25/18 11:59 Discontinued meq Premix 100 ml Water 1 bag IV ONCE Potassium Chloride [Potassium Chloride [place]] 100 MEDS 07/24/19 12:07 Discontinued ml IV .STK-MED Sodium Chloride 0.9% [Sodium Chloride] 1,000 ml MEDS 09/25/18 11:05 Active IV 125 mls/hr CT ABDOMEN/PELVIS WO CONTRAST Stat RADS 09/25/18 11:[address] CHEST W/O CONTRAST Stat RADS 09/25/18 12:[address] HEAD W/O CONTRAST Stat RADS 09/25/18 11:04 Completed Medications Generic Name Dose Route Start Last Admin Trade Name Freq PRN Reason Stop Dose Admin Sodium Chloride 1,000 mls @ 125 mls/hr 09/25/18 11:05 09/25/18 12:02 Sodium Chloride IV 09/25/18 19:04 125 mls/hr .Q8H STA Administration Sodium Chloride 1 syr 09/25/18 11:05 09/25/18 12:02 Saline Flush IVF 1 syr PRN PRN Administration To flush IV Discontinued Medications Generic Name Dose Route Start Last Admin Trade Name Freq PRN Reason Stop Dose Admin Potassium Chloride 10 meq/ 100 mls @ 100 mls/hr 09/25/18 11:59 09/25/18 12:10 Sterile Water IV 09/25/18 12:58 100 mls/hr ONCE STA Administration Potassium Chloride 40 meq 09/25/18 11:59 09/25/18 13:07 K-Dur PO 09/25/18 12:00 40 meq ONCE STA Administration Potassium Chloride 40 meq 09/25/18 13:20 09/25/18 14:18 K-Dur PO 09/25/18 13:21 40 meq ONCE STA Administration Vital Signs: Temp Pulse Resp BP Pulse Ox 09/25/18 10:42 98.5 F 81 18 116/68 90 L Departure - Departure Time of Disposition: 14:25 Disposition: ADMITTED INPATIENT Discharge Problem: Hypokalemia, Dehydration Instructions: Dehydration (ED), Hypokalemia (ED) Condition: Good Pt referred to PMD for follow-up: Yes IPMP verified?: No Additional Instructions: Please call your Family Physician as soon as possible to schedule a follow-up appointment. Allergies/Adverse Reactions: Allergies Iodinated Contrast- Oral and IV Dye [Iodinated Contrast Media - IV Dye] Adverse Reaction (Verified 09/25/18 10:57) Home Medications: Ambulatory Orders Amantadine HCl [Amantadine] 100 mg PO DAILY 10/29/12 Lorazepam [Ativan] 1 mg PO BEDTIME 10/29/12 Quetiapine Fumarate [Seroquel] 50 mg PO BEDTIME 10/29/12 Donepezil HCl 10 mg PO DAILY 06/23/16 Hydrocodone Bit/Acetaminophen [[place] 10-325] 1 tab PO QID PRN 06/23/16 Memantine HCl [Namenda Xr] 28 mg PO BEDTIME 06/23/16 Tizanidine HCl 4 mg PO BEDTIME 06/23/16 Valsartan 320 mg PO DAILY 06/23/16 Aspirin [Aspirin EC] 81 mg PO DAILYWM 07/27/16 Clopidogrel Bisulfate [Plavix] 75 mg PO DAILY 06/01/17 Tiotropium [place] [Spiriva] 1 cap IH DAILY 06/01/17 Pantoprazole Sodium [Protonix] 40 mg PO DAILY #30 tablet. 06/08/17 Disposition Discussed With: Patient, Family
[2018-09-25] MEDS ORDERED: POTASSIUM CHLORIDE PREMIX RUN 100 ML IV ONE (12:07)
--- NOTE | 2018-09-25 12:15 | CT ---
EXAM: CT BRAIN HISTORY: Headache TECHNIQUE: CT brain without intravenous contrast. 5-mm axial sections with Reformations. COMPARISON: 10/29/2012 There is generalized atrophy. Chronic microvascular ischemic change is noted. There is no intracran ial mass, mass effect or evidence of recent large vessel distribution ischemic infarction. No intrac ranial hemorrhage or subdural hematoma. Small bilateral mastoid process effusions. Skull is intact. Visualized paranasal sinuses are grossly clear. IMPRESSION: 1. No acute intracranial process identified. 2. Trace bilateral mastoid process effusions.
--- NOTE | 2018-09-25 12:51 | CT ---
EXAM: CT ABDOMEN AND PELVIS HISTORY: Abdominal pain TECHNIQUE: CT abdomen and pelvis without intravenous contrast. Images were reconstructed using 5 mm section thickness. Reformations were prepared. COMPARISON: 06/01/2017 FINDINGS: Diagnostic limitations may exist without including contrast enhanced images. Moderately severe fatty infiltration of the liver. Splenic length is approaching upper limit normal at 11 cm. Gallbladder appears to be absent. Significant fatty replacement of the pancreas. No adrenal mass. There is lef t nephrolithiasis with largest calculus measuring 7.8 mm. No hydronephrosis is seen. There is sever e atherosclerotic disease. Apparent postop changes of the stomach. No appendix is seen. The patient gave a history of previous appendectomy. Small bowel caliber is within normal limits. There is diffuse, at least mild colonic wall thickening. There is at least mild distal colon diverticulosis. Urinary bladder is within nor mal limits. No uterus is present. There is mild stranding of the abdominal and subcutaneous fat sug gesting a generalized edematous state. No abdominal wall hernia. Bones reveal moderately severe degenerative changes of the spine which are grossly stable since prior study. Lung bases reveal nodular pattern bilaterally, greater on the lef t with bronchiectasis and generalized chronic appearing interstitial change. There is no pneumoperit oneum. IMPRESSION: 1. Diffuse colonic wall thickening may be related to generalized edema or conceivably colitis. No b owel obstruction, ascites or free air. There is mild distal colon diverticulosis without diverticuli tis. 2. Fatty liver. 3. Atherosclerotic disease. 4. Prominent splenic size. 5. Nephrolithiasis without hydronephrosis. 6. Postop changes of the stomach. 7. Probable lung base fibrosis, cannot exclude pneumonia.
--- NOTE | 2018-09-25 13:38 | CT ---
EXAM: CT of the chest without contrast History: Cough and congestion. Comparison: Chest CT 06/03/2017 Technique: Multiplanar CT images through the thorax were obtained without the administration of IV c ontrast Findings: Stable collapsed right breast implant. Heart is mildly enlarged. Coronary calcifications. No pericardial effusion. No thoracic aortic aneurysm. No axillary lymphadenopathy. A few borderl ine enlarged mediastinal lymph nodes are stable. Mild emphysema. Diffuse bronchial wall thickening. Patchy bilateral lung infiltrates with micronodules. No pleural fluid and no pneumothorax. 6 mm r ight apical pleural based nodule which is somewhat spiculated. Within the visualized upper abdomen, severe fatty infiltration of the liver. There is some atrophy o f the pancreas. Partially visualized left renal cyst. Postsurgical changes are seen within the uppe r abdomen. There is some body wall edema. Wall thickening of the visualized colon. No acute osseou s abnormalities. Partially visualized postsurgical changes of the cervical spine. Impression: 1. Bilateral bronchopneumonia. 2. 6 mm right apical nodule is indeterminate. Recommend follow-up chest CT in 3-6 months. 3. Mild cardiomegaly and coronary artery disease. 4. Mild emphysema. 5. Stable borderline enlarged mediastinal lymph nodes are probably reactive. 6. Colitis. 7. Severe fatty infiltration of the liver
[2018-09-25] MEDS ORDERED: DOXY-100 100 MG in SODIUM CHLORIDE 100 ML IV STA (14:44)
[2018-09-25] MEDS ORDERED: SOLU-MEDROL 40 MG IVP STA (14:45)
[2018-09-25 16:13] VITALS: BMI 22.8
[2018-09-25] MEDS: DUONEB NEB SCH ×2 (16:50→23:20)
[2018-09-25] MEDS ORDERED: ROCEPHIN 1 GM PREMIX 1 GM in PREMIX 50 ML D5W 1 BAG IV SCH (17:00)
[2018-09-25] MEDS ORDERED: ROCEPHIN 1 GM PREMIX 1 GM in PREMIX 50 ML D5W 1 BAG IV ONE (17:00)
[2018-09-25] MEDS ORDERED: ZANAFLEX PO SCH (21:00)
[2018-09-25] MEDS ORDERED: NON-FORMULARY MEDICATION (Memantine Hcl [Namenda Xr] 28 MG) PO SCH (21:00)
[2018-09-25] MEDS ORDERED: ZITHROMAX 500 MG in SODIUM CHLORIDE 250 ML IV SCH (21:00)
[2018-09-25] MEDS: SEROQUEL PO SCH (21:03)
[2018-09-25] MEDS: NORCO 10-325 PO PRN (21:18)
[2018-09-26] MEDS: DOXY-100 100 MG in SODIUM CHLORIDE 100 ML IV SCH ×3 (00:06→22:36)
[2018-09-26] MEDS: DUONEB NEB SCH ×4 (04:30→23:13)
[2018-09-26] MEDS: SODIUM CHLORIDE 1,000 ML IV SCH ×2 (05:28)
[2018-09-26] MEDS: PROTONIX PO SCH (05:38)
[2018-09-26] MEDS: ROCEPHIN 1 GM PREMIX 1 GM in PREMIX 50 ML D5W 1 BAG IV SCH (08:28)
[2018-09-26] MEDS: NICODERM 21 MG TD SCH (08:28)
[2018-09-26] MEDS: ASPIRIN EC PO SCH (08:29)
[2018-09-26] MEDS: NAMENDA PO SCH ×2 (08:29→21:21)
[2018-09-26] MEDS: PLAVIX PO SCH (08:29)
[2018-09-26] MEDS: DIOVAN PO SCH (08:29)
[2018-09-26] MEDS: NORCO 10-325 PO PRN ×3 (08:30→21:21)
[2018-09-26] MEDS ORDERED: ROCEPHIN 1 GM VIAL 1 GM in SODIUM CHLORIDE 50 ML IV SCH (09:00)
[2018-09-26] MEDS ORDERED: VALSARTAN 320 MG PO SCH (09:00)
--- NOTE | 2018-09-26 11:15 | RS.PTINEVL ---
Subjective - Patient information Date of Evaluation: 09/26/18 Date of Arrival on Unit: 09/25/18 Admitted From:: Home Diagnosis: pneumonia, hypokalemia, dehydration Usual Living Arrangement: With Others (with dtr.) Home Environment: House, Stairs (few), Rail Medical History: Hypertension, COPD, Dementia Surgical History: Cholecystectomy, Hysterectomy Medications: see chart Subjective Information/ Patient Comments:: pt states that she is ready to "get out of this bed". pt wants to walk and sit up by the window. - Level of function Prior to this admission, the patient could do the following:: Independent Selfcare, Independent ADL's, Independent Ambulation Current Level of Function: Partially Dependent Current Equipment Used at Home: walker, cane Interventions - Objective Patient Orientation: Person, Place, Situation Current Interventions: IV's, Oxygen, Telemetry Range of Motion - ROM Right Upper Extremity AROM: WFL's Left Upper Extremity AROM: WFL's Right Lower Extremity AROM: WFL's Left Lower Extremity AROM: WFL's Muscle Strength - Muscle Strength Right Upper Extremity Strength: Mild Weakness (grossly 4/5) Left Upper Extremity Strength: Mild Weakness (grossly 4/5) Right Lower Extremity Strength: Mild Weakness (hip flex 4/5, knee flex/ext 4/5, ankle DF/PF 4+/5) Left Lower Extremity Strength: Mild Weakness (hip flex 4/5, knee flex/ext 4/5, ankle DF/PF 4+/5) Sensation - Sensation Right Upper Extremity Sensation: Intact/Normal Left Upper Extremity Sensation: Intact/Normal Right Lower Extremity Sensation: Intact/Normal Left Lower Extremity Sensation: Intact/Normal Palpation Palpation Findings: None/Normal Balance - Sitting Balance and Reactions Static Sitting Balance: Good Dynamic Sitting Balance: Fair - Standing Balance and Reactions Static Standing Balance: Fair Dynamic Standing Balance: Poor Functional Mobility - Bed Mobility Rolling R/L: Independent Supine to Sit: Supervision - Transfers Sit to Stand: CGA Stand to Sit: CGA - Safety Awareness Safety Awareness: Fair SIMI INDEX SCORE: n/a Ambulation - Ambulation Assistive Device Used: Gait belt Orthotic/Prosthetic Device: No Distance: 125ft with O2 2 liters Assistance needed with Ambulation: CGA Gait Deviations: Forward posture, Short stride, Deviates from path Ambulation Comments: Feel pt would benefit from use of RWX to improve gait pattern and safety Factors Affecting Ambulation: Decreased Balance, Weakness, Decreased Safety, Limited Endurance Treatment time - Time with patient Length of Evaluation: 21 Total treatment time: 24 Patient Education - Education Patient Education: Home Exercise Program, Education of Plan of Care Teaching Recipient: Patient Teaching Methods: Discussion Comments: discussion regarding POC as well as safety with transfers and gait. Assessment - Assessment Problem List:: Decreased level of function, Requires training/education, Decreased safety/Risk of falls, Weakness, Cognitive status limits abilities Rehab Potential: Good Further Therapy Indicated?: Yes Candidate for Swing Bed for Therapy Services?: Feel pt may not be a swing bed candidate due to pt is at a higher functional level. Evaluation Complexity: HISTORY: Medium, EXAM OF BODY SYSTEMS: Medium, CLINICAL PRESENTATION: Medium, CLINICAL DECISION MAKING: Medium Short Term Goals GOAL #1: pt demonstrate independence rolling and scooting in bed. Goal to be met by: 09/28/18 GOAL #2: pt transfer sup to/from sit independently Goal to be met by: 09/28/18 GOAL #3: Transfer sit to/from stand SBA Goal to be met by: 09/28/18 GOAL #4: pt amb with rwx 140ft with CGA with no LOB Goal to be met by: 09/28/18 Certified Prosthetist Vice President Goals GOAL #1: pt transfer sit to/from stand SBA to independent Goal to be met by: 09/30/18 GOAL #2: pt amb with/without AD functional household distances SBA Goal to be met by: 09/30/18 GOAL #3: pt ascend/descend 3 steps with HR with CGA Goal to be met by: 09/30/18 Plan Plan of Care: Therapeutic EX, Therapeutic Activity Other:: gait training Frequency of Treatment: 1-2 X day, as tolerated Duration of Treatment: 5 days Anticipated Discharge Destination: Home Treatment Diagnosis (ICD 10 Codes): R 26.2 difficulty walking. R 26.81 balance impaired Has the Physician been added for Co-signature?: Yes
[2018-09-26] MEDS ORDERED: ROCEPHIN 1 GM VIAL 1 GM in SODIUM CHLORIDE 50 ML IV ONE (14:41)
[2018-09-26] MEDS: SEROQUEL PO SCH (21:21)
[2018-09-27] MEDS: NORCO 10-325 PO PRN ×4 (03:04→20:56)
[2018-09-27] MEDS: DUONEB NEB SCH ×4 (04:50→23:51)
[2018-09-27] MEDS: PROTONIX PO SCH (06:03)
[2018-09-27] MEDS: NICODERM 21 MG TD SCH (08:21)
[2018-09-27] MEDS: NAMENDA PO SCH ×2 (08:21→20:56)
[2018-09-27] MEDS: DIOVAN PO SCH (08:21)
[2018-09-27] MEDS: ASPIRIN EC PO SCH (08:21)
[2018-09-27] MEDS: DOXY-100 100 MG in SODIUM CHLORIDE 100 ML IV SCH ×2 (08:21→13:40)
[2018-09-27] MEDS: PLAVIX PO SCH (08:21)
[2018-09-27] MEDS: ROCEPHIN 1 GM PREMIX 1 GM in PREMIX 50 ML D5W 1 BAG IV SCH ×2 (09:00→13:40)
[2018-09-27] MEDS ORDERED: ROCEPHIN 1 GM VIAL IM STA (12:33)
[2018-09-27] MEDS: ROCEPHIN 1 GM VIAL IM SCH (13:17)
[2018-09-27] MEDS: LIDOCAINE HCL 1% SDV IM SCH (13:18)
[2018-09-27] MEDS: DOXYCYCLINE HYCLATE PO SCH ×2 (13:19→20:56)
[2018-09-27] MEDS: SEROQUEL PO SCH (20:56)
[2018-09-28] MEDS: NORCO 10-325 PO PRN ×4 (02:26→20:43)
[2018-09-28] MEDS: DUONEB NEB SCH ×4 (05:02→22:40)
[2018-09-28] MEDS: PROTONIX PO SCH (05:42)
[2018-09-28] MEDS: ASPIRIN EC PO SCH (08:12)
[2018-09-28] MEDS: DIOVAN PO SCH (08:12)
[2018-09-28] MEDS: PLAVIX PO SCH (08:13)
[2018-09-28] MEDS: NAMENDA PO SCH ×2 (08:13→20:42)
[2018-09-28] MEDS: DOXYCYCLINE HYCLATE PO SCH ×2 (08:13→20:43)
[2018-09-28] MEDS: ROCEPHIN 1 GM VIAL IM SCH (08:13)
[2018-09-28] MEDS: LIDOCAINE HCL 1% SDV IM SCH (08:13)
[2018-09-28] MEDS: NICODERM 21 MG TD SCH (08:14)
[2018-09-28] MEDS: SODIUM CHLORIDE 1,000 ML IV SCH ×2 (09:14→09:15)
[2018-09-28] MEDS ORDERED: DECADRON 4 MG/ML SDV IM STA (11:26)
[2018-09-28] MEDS: SEROQUEL PO SCH (20:43)
[2018-09-29] MEDS: NORCO 10-325 PO PRN ×3 (03:06→13:40)
[2018-09-29] MEDS: DUONEB NEB SCH ×3 (04:43→16:16)
[2018-09-29] MEDS: PROTONIX PO SCH (05:45)
[2018-09-29] MEDS: NICODERM 21 MG TD SCH (08:27)
[2018-09-29] MEDS: ROCEPHIN 1 GM VIAL IM SCH (08:28)
[2018-09-29] MEDS: LIDOCAINE HCL 1% SDV IM SCH (08:28)
[2018-09-29] MEDS: NAMENDA PO SCH (08:29)
[2018-09-29] MEDS: DOXYCYCLINE HYCLATE PO SCH (08:29)
[2018-09-29] MEDS: DIOVAN PO SCH (08:29)
[2018-09-29] MEDS: PLAVIX PO SCH (08:29)
[2018-09-29] MEDS: ASPIRIN EC PO SCH (08:29)
[2018-09-29] MEDS ORDERED: DECADRON 4 MG/ML SDV IM SCH (09:00)
[2018-09-29 12:51] VITALS: BP 118/63; TEMP 98.4
--- NOTE | 2018-09-29 13:25 | CT ---
EXAM: CT scan of the chest without contrast HISTORY: pneumonia. TECHNIQUE: Helical imaging of the chest was performed without contrast. 5 mm thin axial images and coronal and sagittal reconstructions were provided for interpretation. Comparison 09/25/2018 CT scan of the chest. FINDINGS: The previously noted infiltrates in the left lung appear to be slightly improving. There is no consolidation. Lung volumes are normal. The heart is normal size. No mediastinal masses are seen. There is atherosclerotic calcification of the thoracic aorta. Bilateral breast implants are s een. There is stable appearance of a small irregular nodule seen in the right upper lobe of the lung seen on axial image number 13. Nonobstructing calculi are seen within the calyces of the left kidne y. IMPRESSION: Slightly improving pneumonia seen in the left lung. Stable appearance of a irregular nodule in the right upper lobe of the lung. A repeat CT scan of the chest without contrast should be obtained for further evaluation and 3-6 months.
--- NOTE | 2018-10-01 15:00 | CONS ---
DATE OF CONSULTATION: 09/27/18 REASON FOR CONSULTATION: Pneumonia/shortness of breath with history of severe chronic lung disease with heavy smoking. HISTORY OF PRESENT ILLNESS: 77 year old white female was hospitalized on 09/25/18 with pneumonia. The patient is a heavy smoker with severe chronic lung disease. The patient has been treated with Rocephin and Doxycycline. She has continuously showed improvement. On room air her oxygen saturation now is more than 90%. REVIEW OF SYSTEMS: CONSTITUTIONAL: No night sweats. No fatigue, malaise, lethargy. No fever or chills. HEENT: Eyes: No visual changes. No eye pain. No eye discharge. ENT: No sinus drainage. No epistaxis. No sinus pain. No sore throat. No odynophagia. No ear pain. No congestion. RESPIRATORY: Mild cough with congestion. No hemoptysis. Shortness of breath on exertion. CARDIOVASCULAR: No angina symptoms. No CHF symptoms. No atypical chest pain for CAD. No palpitations. No orthopnea. GASTROINTESTINAL: No abdominal pain. No nausea or vomiting. No diarrhea or constipation. No hematemesis. No hematochezia. GENITOURINARY: No urgency. No frequency. No dysuria. No hematuria. No obstructive symptoms. No discharge. No pain. No significant abnormal bleeding. MUSCULOSKELETAL: No musculoskeletal pain. No joint swelling. NEUROLOGICAL: No headache. No neck pain. No syncope. No seizures. No dizziness. PSYCHIATRIC: Not anxious. No depression. No suicidal thoughts. No homicidal thoughts. SKIN: No rash. No lesions. No wounds. ENDOCRINE: No unexplained weight loss. No weight gain. HEMATOLOGIC/LYMPHATIC: No anemia. No purpura. No petechiae. No prolonged or excessive bleeding. No palpable lymph nodes. MEDICATIONS: Amantadine Ativan Seroquel Donepezil Hydrocodone Valsartan Aspirin Clopidogrel Spiriva Protonix Memantine ALLERGIES: Iodinated contrast-oral and IV dye PAST MEDICAL HISTORY/PAST SURGICAL HISTORY: Heavy smoking Chronic lung disease Hypertension Dementia SOCIAL/PERSONAL/FAMILY HISTORY: The patient is and lives by herself with help of daughter's sister. Heavy smoker, no alcohol abuse. PHYSICAL EXAMINATION: GENERAL: The patient is oriented to time, place and person VITAL SIGNS: Temperature 97.4, pulse 80, respiratory rate 20, blood pressure 138 /84 and pulse ox 90% on room air. HEENT: Head normocephalic, atraumatic. Eyes: Extraocular muscles are intact. Pupils are equal, round and reactive to light and accommodation. Ears: No lesions. Nose appeared normal. Throat: No exudate or erythema. NECK: Supple. No JVP, no carotid bruit. No lymphadenopathy or thyromegaly. LUNGS: Clear to auscultation. Percussion note normal. Chest symmetrical. Crepitations dry left more than the right side. HEART: S1, S2, no S3. No murmurs. No cyanosis or clubbing. No ascites. Pulses: Dorsalis pedis and posterior tibial pulses feeble bilaterally. PMI not palpable on auscultation. Radial strong 2+ bilaterally. ABDOMEN: Soft. Nontender. Bowel sounds active. No CVA tenderness. No mass felt. EXTREMITIES: Trace pitting edema. Full range of motion of all extremities, equal. NEUROLOGIC: No focal deficit. Cranial nerves II through XII are grossly intact. No headache, no double vision or headache. SKIN: Dry. Intact. Turgor - normal. LYMPHATIC: No palpable lymph nodes/no lymphedema. MUSCULOSKELETAL: Normal joints with no swelling. Muscle tone is normal. ASSESSMENT: 1. Pneumonia seems to be resolving with Rocephin and Tetracycline 2. History of smoking 3. Severe chronic lung disease 4. Hypotension 5. Dementia RECOMMENDATIONS: 1. Agreed with present management 2. The patient is going to be given Rocephin 1gram IM daily 3. Doxycycline could be converted to PO 100mg twice a day 4. The patient has very difficulty IV access. 5. Counseling for smoking done. Case discussed with attending MTDD
--- NOTE | 2018-10-01 16:11 | DS ---
DATE OF SERVICE: 09/29/18 PATIENT IDENTIFICATION: The patient had been experiencing decreasing appetite with some abdominal pain for about a week with nausea and vomiting. She denied any chills or fever but had been losing weight. HOSPITAL COURSE: The patient does use oxygen at home mostly at night. The patient four months ago weighed 130 lbs. She is now 120 lbs. She did complain of rectal bleeding at that time. The patient, on 10/29/12, weighed 147 lbs. The patient had diminished breath sounds on both sides with no obvious wheezing. Breath sounds are better heard anteriorly with some crackles. The patient received 500 mg of Zithromax in the emergency room and I do not see where it was continued although it was ordered daily. She also received 100 mg of Doxycycline and ordered Q 12 hours and Rocephin 1 gram Q daily. Her appetite had improved in the hospital and the abdominal pain has also decreased. She did not mention any abdominal pain in the last couple of days of hospitalization. The CAT scan of the abdomen and pelvis without contrast in the emergency room on 09/25/18 showed diffuse colonic wall thinning maybe related to generalized edema or colitis. This patient has hypoproteinemia as well as hypoalbuminemia. No bowel obstruction, ascites or free air. Severe fatty liver disease. She had positive postoperative changes in the stomach. CT scan of the head showed no acute intracranial processes, trace of bilateral mastoid process effusion. CT of the chest showed bilateral bronchopneumonia, severe fatty infiltration liver and fatty wall edema probably again secondary to hypoproteinemia and hypoalbuminemia. The patient is encouraged to eat more meat and beans as well as drink skim milk several times a day. I did tell her about the low protein and low albumin in the presence of her daughter. Repeat CT of the chest done today showed slightly improving pneumonia seen in the left lung. There is no consolidation with the appearance of the irregular nodule in the right upper lobe lung. Repeat CT in three to six months. WBC has slightly increased from normal 10,690 probably secondary to the Decadron. The hemoglobin/hematocrit remained essentially unchanged. Oxygen saturation 91, PH 7.421, PCO2 34.8, PO2 58, HCO3 22.7, total carbonate 24, base excess -2. Arterial blood gases essentially the same as on admission. Vital signs today taken at 12:49 p.m. showed a temperature of 98.4, pulse 94, blood pressure 118/63, RR 20, oxygen saturation 92 at room air. The patient is not using her nasal oxygen. The patient was sitting when I came to see her about 5:30 p.m. and eating her supper. The lungs now has more rales in both lungs vidal but no wheezing. Rales are also heard anteriorly better than previous. No wheezing. Heart is audible with good tones. I did advise the patient that she should see Dr. Hinkle this coming Sunday and before if she has any concerns. The patient should resume her oxygen that she uses mostly at night. I brought up the idea of full code since I had discussed that with her on 09/27/18 and the daughter is in the room with her. I did tell them that full code is probably useless when one is in the hospital being treated for the problem and in spite of all the treatment that her condition is going south. Breaking some ribs during the full code does not change anything at all. At best, it would be back to where she was if she does recover. I do believe that stopping smoking would have a better outcome than a full code. She promised that she would stop smoking. I told her that it would be the best way to go if she wants to see more of her grandchildren. That is the reason given to me why she wanted a full code. FINAL DIAGNOSES: 1. Bilateral bronchopneumonia, improved 2. Hypoproteinemia and hypoalbuminemia 3. Edematous colonic wall, colitis vs edema secondary to hypoproteinemia and hypoalbuminemia 4. Severe fatty liver 5. Respiratory failure 6. Chronic obstructive pulmonary disease with chronic bronchitis 7. Chronic tobacco use and abuse, persistent, more than two packs per day 8. History of bilateral breast implants 9. History of thyroid tumor, operated 10. History of cholecystectomy and hysterectomy Specialties: Dr. Senior, neurologist, and Dr. Brink, director of rehabilitative services. Prognosis: Poor to guarded PLAN: This patient is prescribed Omnicef 300 mg capsule #10 one twice a day, Doxycycline 100 mg tablet one twice a day two hours after breakfast and two hours after supper no milk with the tablet, milk can be consumed some 3-4 hours later and no sun exposure. She is to see Dr. Hinkle on Sunday and before if there is any concerns. TIME SPENT: GREATER THAN 30 MINUTES MTDD
--- NOTE | 2018-10-02 13:12 | PN ---
DATE OF SERVICE: 09/28/18 SUBJECTIVE: 77-year-old white female seen on consultation because of pneumonia and shortness of breath. The patient's condition has steadily improved. She is feeling better, wants to go home. REVIEW OF SYSTEMS: CONSTITUTIONAL: No night sweats. No fatigue, malaise, lethargy. No fever or chills. HEENT: Eyes: No visual changes. No eye pain. No eye discharge. ENT: No runny nose. No epistaxis. No sinus pain. No sore throat. No odynophagia. No congestion. RESPIRATORY: Mild cough and congestion. No hemoptysis. No shortness of breath. CARDIOVASCULAR: No angina symptoms. No CHF symptoms. No atypical chest pain for CAD. No palpitations. No PND. No orthopnea. GASTROINTESTINAL: No abdominal pain. No nausea or vomiting. No diarrhea or constipation. No hematemesis. No hematochezia. GENITOURINARY: No urgency. No frequency. No dysuria. No hematuria. No obstructive symptoms. No discharge. No pain. No significant abnormal bleeding. MUSCULOSKELETAL: No musculoskeletal pain; no joint swelling. NEUROLOGICAL: No headache. No neck pain. No syncope. No seizures. No dizziness. PSYCHIATRIC: Not anxious. No depression. No suicidal thoughts. No homicidal thoughts. SKIN: No rash. No lesions. No wounds. ENDOCRINE: No unexplained weight loss. No weight gain. HEMATOLOGIC/LYMPHATIC: No anemia. No purpura. No petechiae. No prolonged or excessive bleeding. No palpable lymph nodes. PHYSICAL EXAMINATION: VITAL SIGNS: Temperature 97.4, pulse 80, respiratory rate 15, blood pressure 164 /84, pulse ox 91%. HEENT: Head normocephalic, atraumatic. Eyes: Extraocular muscles are intact. Pupils are equal, round and reactive to light and accommodation. Ears: No lesions. Nose appeared normal. Throat: No exudate or erythema. NECK: Supple. No JVD, no carotid bruit. No lymphadenopathy or thyromegaly. LUNGS: Decreased breath sounds but otherwise crepitation on the left base. Decreased breath sounds on the right side. Percussion note normal. Chest symmetrical. HEART: S1, S2, no S3. No murmurs. No cyanosis or clubbing. No ascites. Pulses: Dorsalis pedis and posterior tibial pulses +1 to +2 bilaterally. ABDOMEN: Soft. Nontender. Bowel sounds active. No CVA tenderness. No mass felt. EXTREMITIES: No edema. Full range of motion of all extremities, equal. NEUROLOGIC: No focal deficit. Cranial nerves II through XII are grossly intact. No headache, no double vision or headache. SKIN: Not dry. Intact. Turgor - normal. LYMPHATIC: No palpable lymph nodes/no lymphedema. MUSCULOSKELETAL: Normal joints with no swelling. Muscle tone is normal. ASSESSMENT: 1. Pneumonia 2. Severe hypertension 3. Chronic lung disease 4. Smoking 5. Dementia PLAN: 1. Add Norvasc 5 mg p.o. at h.s. 2. Continue the rest of the medications. 3. The patient's cardiovascular status is stable. 4. Will inquire as to when the patient had an echo done to evaluate LV function. At the present time, no evidence of CHF. TIME SPENT: More than 30 minutes. Plan and coordination of the patient's care discussed in the presence of nurse. KOREY
--- NOTE | 2018-10-02 13:17 | CONS ---
DATE OF SERVICE: 09/28/18 CONSULT FOLLOWUP SUBJECTIVE: 77-year-old white female seen on consultation because of pneumonia and shortness of breath. The patient's condition has steadily improved. She is feeling better, wants to go home. REVIEW OF SYSTEMS: CONSTITUTIONAL: No night sweats. No fatigue, malaise, lethargy. No fever or chills. HEENT: Eyes: No visual changes. No eye pain. No eye discharge. ENT: No runny nose. No epistaxis. No sinus pain. No sore throat. No odynophagia. No ear pain. No congestion. RESPIRATORY: Mild cough and congestion. No hemoptysis. CARDIOVASCULAR: No angina symptoms. No CHF symptoms. No atypical chest pain for CAD. No palpitations. No shortness of breath. GASTROINTESTINAL: No abdominal pain. No nausea or vomiting. No diarrhea or constipation. No hematemesis. No hematochezia. GENITOURINARY: No urgency. No frequency. No dysuria. No hematuria. No obstructive symptoms. No discharge. No pain. No significant abnormal bleeding. MUSCULOSKELETAL: No musculoskeletal pain. No joint swelling. No arthritis. NEUROLOGICAL: No headache. No neck pain. No syncope. No seizures. No dizziness. PSYCHIATRIC: Not anxious. No depression. No suicidal thoughts. No homicidal thoughts. SKIN: No rash. No lesions. No wounds. ENDOCRINE: No unexplained weight loss. No weight gain. HEMATOLOGIC/LYMPHATIC: No anemia. No purpura. No petechiae. No prolonged or excessive bleeding. No palpable lymph nodes. PHYSICAL EXAMINATION: VITAL SIGNS: Temperature 97.4, pulse 80, respiratory rate 15, blood pressure 164 /84, pulse ox 91%. HEENT: Head normocephalic, atraumatic. Eyes: Extraocular muscles are intact. Pupils are equal, round and reactive to light and accommodation. Ears: No lesions. Nose appeared normal. Throat: No exudate or erythema. NECK: Supple. No JVD, no carotid bruit. No lymphadenopathy or thyromegaly. LUNGS: Decreased breath sounds but otherwise crepitation on the left base. Decreased breath sounds on the right side. Percussion note normal. Chest symmetrical. HEART: S1, S2, no S3. No murmurs. No cyanosis or clubbing. No ascites. Pulses: Dorsalis pedis and posterior tibial pulses +1 to +2 bilaterally. ABDOMEN: Soft. Nontender. Bowel sounds active. No CVA tenderness. No mass felt. EXTREMITIES: No edema. Full range of motion of all extremities, equal. NEUROLOGIC: No focal deficit. Cranial nerves II through XII are grossly intact. No headache, no double vision or headache. SKIN: Not dry. Intact. Turgor - normal. LYMPHATIC: No palpable lymph nodes/no lymphedema. MUSCULOSKELETAL: Normal joints with no swelling. Muscle tone is normal. ASSESSMENT: 1. Pneumonia 2. Severe hypertension 3. Chronic lung disease 4. Smoking 5. Dementia PLAN: 1. Add Norvasc 5 mg p.o. at h.s. 2. Continue the rest of the medications. 3. The patient's cardiovascular status is stable. 4. Will inquire as to when the patient had an echo done to evaluate LV function. At the present time, no evidence of CHF. TIME SPENT: More than 30 minutes. Plan and coordination of the patient's care discussed in the presence of nurse KOREY
--- NOTE | 2018-10-02 13:25 | CONS ---
DATE OF SERVICE: 09/29/18 CONSULT FOLLOWUP SUBJECTIVE: 77-year-old white female hospitalized with pneumonia. The patient's condition has steadily improved. She is on Rocephin and Doxycycline. REVIEW OF SYSTEMS: CONSTITUTIONAL: No night sweats. No fatigue, malaise, lethargy. No fever or chills. HEENT: Eyes: No visual changes. No eye pain. No eye discharge. ENT: No runny nose. No epistaxis. No sinus pain. No sore throat. No odynophagia. No ear pain. No congestion. RESPIRATORY: Mild cough. The patient is short of breath on minimal exertion. No hemoptysis. CARDIOVASCULAR: No angina symptoms. No CHF symptoms. No atypical chest pain for CAD. No palpitations. No shortness of breath. GASTROINTESTINAL: No abdominal pain. No nausea or vomiting. No diarrhea or constipation. No hematemesis. No hematochezia. GENITOURINARY: No urgency. No frequency. No dysuria. No hematuria. No obstructive symptoms. No discharge. No pain. No significant abnormal bleeding. MUSCULOSKELETAL: No musculoskeletal pain. No joint swelling. No arthritis. NEUROLOGICAL: No headache. No neck pain. No syncope. No seizures. No dizziness. PSYCHIATRIC: Not anxious. No depression. No suicidal thoughts. No homicidal thoughts. SKIN: No rash. No lesions. No wounds. ENDOCRINE: No unexplained weight loss. No weight gain. HEMATOLOGIC/LYMPHATIC: No anemia. No purpura. No petechiae. No prolonged or excessive bleeding. No palpable lymph nodes. PHYSICAL EXAMINATION: VITAL SIGNS: Temperature 98.3, pulse 78, respiratory rate 19, blood pressure 140 /70, pulse ox 94% on room air. HEENT: Head normocephalic, atraumatic. Eyes: Extraocular muscles are intact. Pupils are equal, round and reactive to light and accommodation. Ears: No lesions. Nose appeared normal. Throat: No exudate or erythema. NECK: Supple. No JVD, no carotid bruit. No lymphadenopathy or thyromegaly. LUNGS: Right-sided decreased breath sounds but left dry creps. Percussion note normal. Chest symmetrical. HEART: S1, S2, no S3. No murmurs. No cyanosis or clubbing. No ascites. Pulses: Dorsalis pedis and posterior tibial pulses +1 to +2 bilaterally. ABDOMEN: Soft. Nontender. Bowel sounds active. No CVA tenderness. No mass felt. EXTREMITIES: No edema. Full range of motion of all extremities, equal. NEUROLOGIC: No focal deficit. Cranial nerves II through XII are grossly intact. No headache, no double vision or headache. SKIN: Not dry. Intact. Turgor - normal. LYMPHATIC: No palpable lymph nodes/no lymphedema. MUSCULOSKELETAL: Normal joints with no swelling. Muscle tone is normal. LABS: Hemoglobin 11.6, hematocrit 37, WBC 10,000, normal differential. Creatinine 0.5 , BUN 9, potassium 4.1. GFR 110 cc/min. ASSESSMENT: 1. Pneumonia seems to be resolving. RECOMMENDATIONS: 1. Continue Doxycycline and Rocephin. 2. The patient has been given Decadron 1 cc yesterday and 1 cc today. 3. Counseling for smoking done. Condition is improving. MTDD
--- NOTE | 2018-10-02 13:29 | CONS ---
BILLING The patient was seen in consultation on the following dates: 09/27/18 LEVEL 5 09/28/18 INTERMEDIATE 09/29/18 INTERMEDIATE MTDD
--- NOTE | 2018-10-04 14:49 | HP ---
DATE OF SERVICE: 09/25/18 CHIEF COMPLAINT: Weakness and feeling badly for the past week. Difficulty breathing, shortness of breath and dizziness. HISTORY OF PRESENT ILLNESS: Ms. Schulz is a pleasant 77-year-old patient of Dr. Hinkle who presented to the emergency department after feeling weak for the past few days. She reports that she has had difficulty with breathing as well as shortness of breath and she has had a productive cough of white sputum. She tells me that she did go see Rabia with Dr. Hinkle and she recommended that she be seen in the emergency department to be admitted. She denies any fever or chills. She does have a history of pneumonia in the past and she tells me that she normally gets admitted because the pneumonia gets so bad. She does admit to smoking approximately two packs of cigarettes per day. On admission her CT of the chest showed bilateral bronchopneumonia, a 6 mm right apical nodule is indeterminate with recommended followup CT chest in 3 to 6 months. It did show mild cardiomegaly and coronary artery disease with mild emphysema and stable borderline enlarged mediastinal lymph nodes probably reactive. Also showed colitis and severe fatty infiltration of the liver. On admission her white count was normal at 8.29, hemoglobin 11.8 and hematocrit 38.1. The patient was admitted for treatment of pneumonia. PAST MEDICAL HISTORY: Includes left hip osteoarthritis, left temporal lobe infarct, right total occlusion of right ICA, chronic bronchitis. COPD, smoker, dementia, dyslipidemia , low B12 level, Parkinson's disease and IBS. PAST SURGICAL HISTORY: Includes C-spine, thyroid, hysterectomy and cardiac cath in 2002. ALLERGIES: IODINATED CONTRAST, ORAL AND IVP DYE CURRENT HOME MEDICATIONS: Ativan 1 mg tablet at bedtime Amantidine 100 mg daily Seroquel 50 mg at bedtime Donepezil 10 mg daily [place] 10/325 mg takes one tablet four times a day as needed Tizanidine 4 mg tablet at bedtime Valsartan 320 mg tablet daily Aspirin 81 mg daily Sunday and Sunday Spiriva 18 mcg one capsule inhalation daily Plavix 75 mg tablet daily Protonix 40 mg daily Amantidine 10 mg twice a day FAMILY HISTORY: Arthritis Diabetes Emphysema Hypertension Congestive heart failure Cardiac disorder Alzheimer's disease SOCIAL HISTORY: , denies alcohol use. She smokes about two packs of cigarettes a day. Denies any ilicit drug use. REVIEW OF SYSTEMS: CONSTITUTIONAL: She denies any fever or chills, nightsweats. Denies any weight changes. HEENT: Denies any complaints of headache, nasal drainage or sore throat. CARDIOVASCULAR: No reports of chest pain. Denies any irregular rhythm. Denies any orthopnea. No reports of any peripheral edema. LUNGS: Does complain of shortness of breath. Does complain of cough and congestion. Does have a history of lung disease. GI: No complaints of abdominal pain, nausea, vomiting, diarrhea, constipation or blood in stool or changes in stool consistency. : No reports of dysuria, hematuria, nocturia or urinary incontinence. MUSCULOSKELETAL: No reports of any muscle pain or joint redness. Does complain of generalized weakness. No reports of joint swelling. NEUROLOGIC: No complaints of dizziness. Does complain of generalized weakness and fatigue. PSYCHIATRIC: No complaints of anxiety, depression or mood changes. ENDOCRINE: No reports of diabetes mellitus. No complaints of increased thirst, urination, heat or cold intolerance. INTEGUMENTARY: No reports of unusual rashes, lesions or skin changes. PHYSICAL EXAMINATION: GENERAL: She is alert and oriented. VITAL SIGNS: Temperature 98.5, pulse rate 81, blood pressure 115/68, respiratory rate 18, 02 sat 90% on room air. She is 5', weight 120 lbs. HEENT: Head is normocephalic, atraumatic. Pupils are equal. Conjunctivae are clear. Mucous membranes are moist. She does wear dentures. NECK: Supple. No lymphadenopathy, no thyromegaly, no carotid bruits. CARDIOVASCULAR: 1+ ankle edema bilaterally. S1, S2, regular rate and rhythm. Peripheral pulses palpable. LUNGS: Rhonchi upper and lower lobes, anterior/posterior. ABDOMEN: Soft, bowelsounds are positive. No tenderness. No rebound tenderness. No rigidity. NEUROLOGIC: Cranial nerves 2-12 grossly intact. SKIN: Warm and dry. No rashes, lesions or wounds examined. LABS AND DIAGNOSTIC TESTING: Previously she had bilateral bronchopneumonia, a 6 mm right apical nodule is indeterminate, would recommend followup CT of the chest in 3 to 6 months. Mild cardiomegaly and coronary artery disease with mild emphysema, stable borderline enlarged and mediastinal lymph nodes, probably reactive, colitis and severe fatty infiltration of the liver per CT of the chest. On admission white count normal. Hemoglobin, hematocrit stable. Sodium 143.2, chloride 113.8, BUN 9.4, creatinine 0.55, LFTs are normal. Procalcitonin 5.15. ASSESSMENT: 1. BILATERAL BRONCHOPNEUMONIA. 2. HYPOKALEMIA WITH POTASSIUM 2.84 ON ADMISSION. 3. COPD EXACERBATION. 4. 6 MM RIGHT APICAL NODULE THAT IS INDETERMINATE WITH NEED FOR FOLLOWUP CT OF THE CHEST AN OUTPATIENT. 5. CHRONIC BRONCHITIS. 6. CHRONIC TOBACCO USE. 7. HISTORY OF LEFT TEMPORAL LOBE INFARCT. 8. HISTORY OF RIGHT TOTAL OCCLUSION OF RIGHT ICA. 9. HISTORY OF DEMENTIA. 10. HISTORY OF DYSLIPIDEMIA. 11. HISTORY OF B12 DEFICIENCY. 12. HISTORY OF PARKINSON'S DISEASE. 13. HISTORY OF IBS. PLAN: 1. Admit the patient. 2. Replace potassium. 3. Start IV antibiotics and IV fluids. 4. Continue to monitor labs and ABGs with oxygen and nebulizer treatments. 5. Further orders and recommendations per Dr. Guzman. TIME SPENT: GREATER THAN 65 MINUTES MTDD
== END 2018-09-29 17:41 | disposition home or self-care (01) | DRG 193 ==
LOC: ED 10:41 → MEDSURG B 14:29
PROVIDERS: ADMIT General Practice; ATTEND General Practice
DX: J18.0 Bronchopneumonia, unspecified organism (principal); J96.90 Respiratory failure, unspecified, unspecified whether with hypoxia or hypercapnia; J44.9 Chronic obstructive pulmonary disease, unspecified; J42 Unspecified chronic bronchitis; E86.0 Dehydration; E87.6 Hypokalemia; E88.09 Other disorders of plasma-protein metabolism, not elsewhere classified; E77.8 Other disorders of glycoprotein metabolism; K76.0 Fatty (change of) liver, not elsewhere classified; K52.9 Noninfective gastroenteritis and colitis, unspecified; R10.9 Unspecified abdominal pain; R05 Cough; R53.83 Other fatigue; R51 Headache; R53.81 Other malaise; R11.2 Nausea with vomiting, unspecified; Z72.0 Tobacco use
CPT/HCPCS: 36415; 80048; 80053; 82550; 82803; 82977; 83605; 84145; 84484; 85025; 87040; 93005; 93010; 94640; 96361; 96365; 97802; 99284

== ENCOUNTER 2018-11-14 12:03 | Inpatient (IN) ==
[2018-11-14 12:48] VITALS: BMI 19.8
[2018-11-14] MEDS ORDERED: NITROSTAT SL PRN (13:12)
[2018-11-14] MEDS ORDERED: VISTARIL INJ IM PRN (13:12)
[2018-11-14] MEDS ORDERED: ATROPINE SULFATE PFS IVP PRN (13:12)
[2018-11-14] MEDS ORDERED: LASIX IVP STA (13:15)
[2018-11-14] MEDS ORDERED: DECADRON 4 MG/ML SDV IM STA (13:27)
[2018-11-14] MEDS ORDERED: ROCEPHIN 1 GM/50 ML D5W 1 GM/50 ML BAG IV SCH (13:30)
[2018-11-14] MEDS ORDERED: NORCO 10-325 PO PRN (13:59)
[2018-11-14] MEDS ORDERED: NORCO 10-325 ONE (14:05)
[2018-11-14] MEDS: XOPENEX 1.25 MG NEB SCH ×2 (14:10→20:42)
[2018-11-14] MEDS ORDERED: LASIX IM STA (15:07)
[2018-11-14] MEDS: LIDOCAINE HCL 1% SDV IM STA (15:32)
[2018-11-14] MEDS: ROCEPHIN 1 GM VIAL IM SCH (15:32)
[2018-11-14] MEDS: BACTROBAN TP SCH ×2 (15:33→22:11)
[2018-11-14] MEDS ORDERED: K-DUR PO STA (15:33)
--- NOTE | 2018-11-14 15:47 | DI ---
EXAM: Chest one view HISTORY: Shortness of breath COMPARISON: 06/01/2017 TECHNIQUE: Single view of the chest was performed FINDINGS: The lungs are clear. Possible mild perihilar peribronchial thickening. There is no pleura l effusion or pneumothorax. The heart is normal in size. The mediastinal contour is normal. There are no acute abnormalities of the bones. Lower cervical ACDF. IMPRESSION: Possible mild perihilar peribronchial thickening, suggestive of small airways inflammati on/infection.
[2018-11-14] MEDS ORDERED: K-DUR ONE (15:54)
[2018-11-14] MEDS ORDERED: K-DUR PO ONE ×2 (17:30→21:00)
[2018-11-14] MEDS: NORCO 10-325 PO SCH ×2 (17:44→22:11)
[2018-11-14] MEDS: PULMICORT 1 MG/2 ML NEB SCH (20:42)
[2018-11-14] MEDS ORDERED: ATIVAN PO SCH (21:00)
[2018-11-14] MEDS ORDERED: PULMICORT 1 MG/2 ML NEB SCH (21:00)
[2018-11-14] MEDS: ZANAFLEX PO SCH (22:11)
[2018-11-14] MEDS: ATIVAN PO SCH (22:11)
[2018-11-14] MEDS: ANUCORT-HC RC SCH (22:11)
[2018-11-14] MEDS: NAMENDA PO SCH (22:12)
[2018-11-14] MEDS: SEROQUEL PO SCH (22:12)
[2018-11-15] MEDS: XOPENEX 1.25 MG NEB SCH ×3 (04:43→19:30)
[2018-11-15] MEDS: PROTONIX PO SCH (06:05)
[2018-11-15] MEDS ORDERED: DECADRON 4 MG/ML SDV IM STA (08:25)
[2018-11-15] MEDS ORDERED: NON-FORMULARY MEDICATION (Amantadine Hcl [Amantadine] 100 MG) PO SCH (09:00)
[2018-11-15] MEDS ORDERED: VALSARTAN 320 MG PO SCH (09:00)
--- NOTE | 2018-11-15 09:05 | PCM.PROG ---
Attending Provider: ATTENDING PROVIDER: Dr. BUDDY CHILDS This patient is seen with Rabia Trinidad, Nurse Practitioner. DATE OF SERVICE: 11/15/18 SUBJECTIVE: This 78 year old WHITE/ F was hospitalized 11/14/18. The patient is complaining of pain all over. She has severe osteoarthritis along with osteoporosis. Bleeding from hemorrhoids yesterday. Complaining of abdominal pain this morning. REVIEW OF SYSTEMS: CONSTITUTIONAL: No night sweats. No fatigue, malaise, lethargy. No fever or chills. Weakness. HEENT: Eyes: No visual changes. No eye pain. No eye discharge. ENT: No runny nose. No epistaxis. No sinus pain. No odynophagia. No congestion. RESPIRATORY: Cough, no congestion. No hemoptysis. No shortness of breath. CARDIOVASCULAR: No angina symptoms. No CHF symptoms. No atypical chest pain for CAD. No palpitations. No orthopnea.. GASTROINTESTINAL: No abdominal pain. No nausea or vomiting. No diarrhea or constipation. No hematemesis. No hematochezia. GENITOURINARY: No urgency. No frequency. No dysuria. No hematuria. No obstructive symptoms. No discharge. No pain. No significant abnormal bleeding. MUSCULOSKELETAL: Generalized pain; no joint swelling. NEUROLOGICAL: Awake, alert, oriented to time, place and person. No headache. No neck pain. No syncope. No seizures. No dizziness. PSYCHIATRIC: Not anxious. No depression. No suicidal thoughts. No homicidal thoughts. SKIN: No rash. No lesions. No wounds. ENDOCRINE: No unexplained weight loss. No weight gain. HEMATOLOGIC/LYMPHATIC: No anemia. No purpura. No petechiae. No prolonged or excessive bleeding. No palpable lymph nodes. PHYSICAL EXAMINATION: GENERAL: The patient is awake, alert and oriented, lying in bed in no distress. VITAL SIGNS: Temperature 97.9 F, Pulse 60, Respiratory Rate 20, BP 110/67, Pulse Ox 97% HEENT: Head normocephalic, atraumatic. Eyes: Extraocular muscles are intact. Pupils are equal, round and reactive to light and accommodation. Ears: No lesions. Nose appeared normal. Throat: No exudate or erythema. NECK: Supple. No JVD, no carotid bruit. No lymphadenopathy or thyromegaly. LUNGS: Diminished breath sounds. Clear to auscultation. Percussion note normal. Chest symmetrical. HEART: S1, S2, no S3. No murmurs. No cyanosis or clubbing. No ascites. Pulses: Dorsalis pedis and posterior tibial pulses +1 to +2 both sides. ABDOMEN: Soft. Non-tender. Bowel sounds active. No CVA tenderness. No mass felt. EXTREMITIES: Leg edema has resolved. Full range of motion of all extremities, equal. Bruising to both arms. NEUROLOGIC: No focal deficit. Cranial nerves II through XII are grossly intact. No headache, no double vision or headache. SKIN: Not dry. Intact. Turgor-normal. LYMPHATIC: No palpable lymph nodes/no lymphedema. MUSCULOSKELETAL: Normal joints with no swelling. Muscle tone is normal. LAB REVIEW: 11/15/18 04:45 11/15/18 04:45 11/15/18 04:45: NT-Pro-B Natriuret Pep 1070.000 H 11/15/18 04:45: Sodium 139.1, Potassium 3.75, Chloride 113.1 H, Carbon Dioxide 24.5, Anion Gap 5.25, BUN 13.5, Creatinine 0.57 L, Estimated GFR (MDRD) 103.00, BUN/Creatinine Ratio 23.68, Glucose 177.0 H D, Calcium 7.15 L, Total Bilirubin 0.25, AST 19.0, ALT 16.9, Alkaline Phosphatase 122.0 D, Total Protein 4.25 L, Albumin 1.79 L, Globulin 2.46, Albumin/Globulin Ratio 0.72 11/15/18 04:45: WBC 6.38 D, RBC 3.16 L, Hgb 9.7 L D, Hct 31.3 L D, MCV 99.1 H, MCH 30.7, MCHC 31.0 L, RDW Coeff of [place] 14.8, Plt Count 228 D, Immature Gran % (Auto) 0.6, Neut % (Auto) 77.9, Lymph % (Auto) 13.9, [place] % (Auto) 7.4, Eos % ( Auto) 0.0, Baso % (Auto) 0.2, Immature Gran # (Auto) 0.0, Neut # (Auto) 5.0, Lymph # (Auto) 0.9, [place] # (Auto) 0.5, Eos # (Auto) 0.0, Baso # (Auto) 0.0 11/14/18 16:25: Urine Color Yellow, Urine Clarity Cloudy, Urine pH 6.0, Ur Specific [place] 1.015, Urine Protein Negative, Urine Glucose (UA) Negative, Urine Ketones Negative, Urine Blood 2+, Urine Nitrite Negative, Urine Bilirubin Negative, Urine Urobilinogen 0.2, Ur Leukocyte Esterase Negative, Urine Microscopic RBC 2-5, Ur Squamous Epith Cells 50-100 11/14/18 14:40: Sodium 139.4, Potassium 3.04 L, Chloride 112.4 H, Carbon Dioxide 23.9, Anion Gap 6.14, BUN 11.6, Creatinine 0.52 L, Estimated GFR (MDRD) 115.00, BUN/Creatinine Ratio 22.30, Glucose 105.4, Calcium 7.09 L, Total Bilirubin 0.65, AST 29.6, ALT 22.9, Alkaline Phosphatase 192.9 H, Total Protein 5.42 L, Albumin 2.33 L, Globulin 3.09, Albumin/Globulin Ratio 0.75 11/14/18 14:40: WBC 11.82 H, RBC 4.11 L, Hgb 12.7, Hct 40.1, MCV 97.6, MCH 30.9 , MCHC 31.7 L, RDW Coeff of [place] 14.7, Plt Count 334, Immature Gran % (Auto) 0.4 , Neut % (Auto) 78.5, Lymph % (Auto) 13.8, [place] % (Auto) 5.2, Eos % (Auto) 1.6, Baso % (Auto) 0.5, Immature Gran # (Auto) 0.1, Neut # (Auto) 9.3 H, Lymph # ( Auto) 1.6, [place] # (Auto) 0.6, Eos # (Auto) 0.2, Baso # (Auto) 0.1 ASSESSMENT: Please see below. 1. Leg edema 2. Cellulitis left arm 3. Anemia 4. Severe COPD 5. Generalized osteoarthritis 6. Generalized weakness 7. Nausea PLAN: 1. CT abdomen and pelvis 3. 1cc Decadron IM Plan and coordination of the patient's care discussed in the presence of Commodities Trader and nurse. SCRIBED BY: DEBBIE ALLEN [employer] Maker scribed while in presence of service performed by Dr. Childs/aRbia Trinidad APRN on 11/15/18 ([id number])
[2018-11-15] MEDS ORDERED: LIDOCAINE HCL 1% SDV ONE (09:34)
[2018-11-15] MEDS: DIOVAN PO SCH (09:46)
[2018-11-15] MEDS: SYMMETREL PO SCH (09:47)
[2018-11-15] MEDS: NAMENDA PO SCH ×2 (09:47→21:10)
[2018-11-15] MEDS: ARICEPT PO SCH (09:47)
[2018-11-15] MEDS: ASPIRIN EC PO SCH (09:47)
[2018-11-15] MEDS: NORCO 10-325 PO SCH ×4 (09:47→23:13)
[2018-11-15] MEDS: PLAVIX PO SCH (09:47)
[2018-11-15] MEDS: ROCEPHIN 1 GM VIAL IM SCH (09:50)
[2018-11-15] MEDS: LIDOCAINE HCL 1% SDV IM STA (09:51)
[2018-11-15] MEDS: BACTROBAN TP SCH ×2 (09:52→21:09)
[2018-11-15] MEDS: SPIRIVA IH SCH (09:52)
[2018-11-15] MEDS: ANUCORT-HC RC SCH ×2 (09:52→21:10)
[2018-11-15] MEDS ORDERED: ROCEPHIN 1 GM VIAL IM SCH (10:00)
[2018-11-15] MEDS: NICODERM 21 MG TD SCH (10:08)
[2018-11-15] MEDS: LIDOCAINE HCL 1% SDV IM SCH (10:12)
--- NOTE | 2018-11-15 13:34 | HP ---
DATE OF SERVICE: 11/14/18 REASON FOR HOSPITALIZATION/HISTORY OF PRESENT ILLNESS: 78 year old white female hospitalized with 7 pound weight gain in one month. Her legs are swollen as well as left arm is swollen. She fell last night and scraped her left arm. She has been having shortness of breath. PAST MEDICAL HISTORY: Hypokalemia Nodule right lower lobe repeat CT History of prolapse rectum Left knee Sim's Cyst (Ortho) IBS Weight loss Right hip Osteoarthritis Left temporal occasional right ICA Chronic bronchitis COPD/Smoker O2 at HS C-spine Osteoarthritis Dementia Parkinson's disease, Dr. Senior Cardiac Cath 2003 Anemia History of GI bleed Decreased B12 level PAST SURGICAL HISTORY: Gallbladder VASILIY Left foot Appendectomy REVIEW OF SYSTEMS: CONSTITUTIONAL: No fever, Fatigue. HEENT: No sinus drainage, no sore throat. RESPIRATORY: Cough, no congestion. CARDIOVASCULAR: No atypical chest pain for coronary artery disease. No angina , CHF symptoms, palpitations. Shortness of breath. GASTROINTESTINAL: No melena or abdominal pain. No GERD. GENITOURINARY: No hematuria, no prostatism, no polyuria. MANAGER MOLECULAR: No blackout, no dizziness, no headache, no double vision. MUSCULOSKELETAL: Osteoarthritis pain, no joint swelling. ENDOCRINE: No weight loss, Weight gain of 7 pounds. SKIN: Not dry, no rash. Abrasion on left arm. PSYCHIATRIC: Not anxious, no depression, no suicidal thoughts, no homicidal thoughts. SOCIAL HISTORY: Marital Status: . Alcohol Usage: No. Tobacco Usage: Yes. FAMILY HISTORY: Father -CAD Mother -CHF Brothers 2 CAD and one alive CHF Sister 1 CHF and one alive CAD MEDICATIONS: Amantadine 100mg PO daily Ativan 1mg HS Seroquel 50mg HS Donepezil 10mg PO daily [place] 10-325mg QID Namenda 10mg twice a day Zanaflex 4mg HS Valsartan 320mg daily ASA 81mg daily Plavix 75mg PO daily Spiriva daily Protonix 40mg PO daily Tobramycin 2 drops TID ALLERGIES: IV due Iodine PHYSICAL EXAMINATION: V/S: Pulse 104, blood pressure 1121/66, temperature 99, pulse ox 94%. Height 5' 5, BMI 19.8 and weight 119.4. GENERAL APPEARANCE: Oriented times three. HEENT: Normal. NECK: No JVP, no bruits. RESPIRATORY: Decreased breath sounds. Bilateral Rhonchi. . CARDIOVASCULAR: S1, S2, no S3, no murmurs. No cyanosis, clubbing. No ascites. Redness, bleeding left forearm. GI/ABDOMEN: No tenderness. Bowel sounds are active. EXTREMITIES: +2 left lower extremity edema, +1 right lower extremity edema, Left hand edema. pulses +1, equal. MANAGER MOLECULAR: Deep tendon reflexes, sensory, motor and gait all normal. RECTAL: 11-18 [facility] and EGD/PELVIC: Patient refused ASSESSMENT: 1. Leg edema 2. Shortness of breath 3. Cellulitis left arm 4. Bilateral pneumonia 5. Hypokalemia 6. Nodule right lower lobe repeat CT 7. History of prolapse rectum 8. Left knee Sim's Cyst (Ortho) 9. IBS 10.Weight loss 11.Right hip Osteoarthritis 12.Left temporal occasional right ICA 13.Chronic bronchitis 14.COPD/Smoker O2 at HS 15.C-spine Osteoarthritis 16.Dementia 17.Parkinson's disease, Dr. Senior 18.Cardiac Cath 2002 19.Anemia 20.History of GI bleed 21.Decreased B12 level Long discussion with patient regarding code status and prognosis given multiple medical problems. " I don't want any of that, left me go." PLAN: 1. Admit 2. Routine telemetry orders 3. CBC /CMP now and daily 4. Chest x-ray 5. U/A 6. Lasix 40mg IV now 7. Kurtz if wanted 8. Elevate legs and Left arm 9. Wound culture left arm 10.Bactroban ointment twice a day BID to arm 11.1cc Decadron IM today 12.Rocephin 1gram IV daily times 5 days 13.Xopenex NEBS 1.25 three times a day scheduled 14.Pulmicort NEB QHS 1 mg 15.Continue home medications 16. Regular diet 17.DNR TIME SPENT: More than 70 minutes. MTDD
--- NOTE | 2018-11-15 13:44 | CT ---
EXAM: CT ABDOMEN AND PELVIS HISTORY: Abdominal pain, blood in stool TECHNIQUE: CT abdomen and pelvis without intravenous contrast. Images were reconstructed using 5 mm section thickness. Reformations were prepared. COMPARISON: 09/25/2018 FINDINGS: Diagnostic limitations may exist without including contrast enhanced images. The liver is fatty. Sp apoorva is within normal limits. No gallbladder is seen. Significant fatty replacement of the pancreas . No adrenal masses. Bilateral nephrolithiasis is present. A few punctate calcifications are prese nt on the right. The largest left-sided calculus is 9.6 mm. There is no hydronephrosis or evidence of ureteral obstruction. Severe atherosclerotic disease is present. Focal saccular aortic dilatatio n just above the bifurcation to 2.7 cm similar to that previously seen. This is minimally changed si nce older prior study of 06/01/2017. Postop changes of the upper stomach are suggested. The stomach is mildly distended with food product . There is at least mild distal colon diverticulosis. Colonic wall thickening with paracolic inflam matory or edematous fatty infiltration. Especially at the level of the sigmoid, the thickening is li abrahan related to either colitis or diverticulitis. There is no evidence of bowel obstruction, pneumat osis or free air. There is no gordon ascites. There is a prominent ileocecal valve. No uterus is seen. Urinary bladder is within normal limits. There is no abdominal wall hernia. Sub cutaneous fat stranding is noted especially along the lower anterior abdomen and left flank which may be related to cellulitis or edema. The bones reveal diffuse degenerative disc and facet disease mos t apparent at L3/L4 where there is endplate sclerosis and mild endplate lucency. This is stable sinc e prior study suggesting a degenerative state rather than infectious. Correlate clinically. There i s a chronically elevated left hemidiaphragm with a tiny amount of adjacent pleural fluid and lung bas e consolidation as well as probably regional fibrotic changes. IMPRESSION: 1. Findings which can be consistent with colitis, especially at the sigmoid level. Consider infecti ous or ischemic etiologies. Diverticulitis and a generalized edematous state are within the differen tial. There is no bowel obstruction, pneumatosis, ascites or free air. There is severe atherosclero tic disease. 2. Fatty liver. 3. Bilateral nephrolithiasis without hydronephrosis. 4. Left lung consolidations possibly representing atelectasis related to elevated left hemidiaphragm . Correlate for regional pneumonia. 5. Postop changes of the stomach are suggested. Correlate with history.
[2018-11-15] MEDS: FLAGYL PO SCH ×2 (16:04→21:10)
[2018-11-15] MEDS: PULMICORT 1 MG/2 ML NEB SCH (19:30)
[2018-11-15] MEDS ORDERED: PULMICORT 0.5 MG/2 ML NEB SCH (21:00)
[2018-11-15] MEDS: ZANAFLEX PO SCH (21:10)
[2018-11-15] MEDS: SEROQUEL PO SCH (21:10)
[2018-11-15] MEDS: ATIVAN PO SCH (21:10)
[2018-11-15] MEDS: TYLENOL PO PRN (21:37)
[2018-11-16] MEDS: XOPENEX 1.25 MG NEB SCH ×3 (04:50→19:15)
[2018-11-16] MEDS: NORCO 10-325 PO SCH ×4 (05:21→23:05)
[2018-11-16] MEDS: PROTONIX PO SCH (05:40)
[2018-11-16] MEDS: LIDOCAINE HCL 1% SDV IM SCH (08:59)
[2018-11-16] MEDS: NICODERM 21 MG TD SCH (08:59)
[2018-11-16] MEDS: NAMENDA PO SCH ×2 (09:00→20:34)
[2018-11-16] MEDS: SYMMETREL PO SCH (09:00)
[2018-11-16] MEDS: FLAGYL PO SCH ×2 (09:00→20:36)
[2018-11-16] MEDS: ASPIRIN EC PO SCH (09:00)
[2018-11-16] MEDS: ROCEPHIN 1 GM VIAL IM SCH (09:00)
[2018-11-16] MEDS: DIOVAN PO SCH (09:00)
[2018-11-16] MEDS: ARICEPT PO SCH (09:00)
[2018-11-16] MEDS: ANUCORT-HC RC SCH ×2 (09:01→20:35)
[2018-11-16] MEDS: BACTROBAN TP SCH ×2 (09:01→20:39)
[2018-11-16] MEDS: PLAVIX PO SCH (09:01)
[2018-11-16] MEDS: SPIRIVA IH SCH (09:30)
[2018-11-16] MEDS: TYLENOL PO PRN ×2 (10:40→20:34)
[2018-11-16] MEDS: ANTIVERT PO PRN ×2 (18:17→20:35)
[2018-11-16] MEDS: PULMICORT 1 MG/2 ML NEB SCH (19:15)
[2018-11-16] MEDS: SEROQUEL PO SCH (20:34)
[2018-11-16] MEDS: ATIVAN PO SCH (20:34)
[2018-11-16] MEDS: ZANAFLEX PO SCH (20:34)
[2018-11-17] MEDS: XOPENEX 1.25 MG NEB SCH ×3 (04:55→20:05)
[2018-11-17] MEDS: PROTONIX PO SCH (05:31)
[2018-11-17] MEDS: NORCO 10-325 PO SCH ×3 (05:31→17:33)
[2018-11-17] MEDS: SPIRIVA IH SCH (08:15)
[2018-11-17] MEDS: SYMMETREL PO SCH (08:15)
[2018-11-17] MEDS: ARICEPT PO SCH (08:16)
[2018-11-17] MEDS: ANUCORT-HC RC SCH ×3 (08:16→21:59)
[2018-11-17] MEDS: NAMENDA PO SCH ×2 (08:16→20:54)
[2018-11-17] MEDS: DIOVAN PO SCH (08:16)
[2018-11-17] MEDS: FLAGYL PO SCH (08:16)
[2018-11-17] MEDS: LIDOCAINE HCL 1% SDV IM SCH (08:16)
[2018-11-17] MEDS: ASPIRIN EC PO SCH (08:16)
[2018-11-17] MEDS: PLAVIX PO SCH (08:16)
[2018-11-17] MEDS: ROCEPHIN 1 GM VIAL IM SCH (08:17)
[2018-11-17] MEDS: NICODERM 21 MG TD SCH (08:17)
[2018-11-17] MEDS: BACTROBAN TP SCH ×2 (08:19→20:54)
[2018-11-17] MEDS: ANTIVERT PO PRN ×2 (08:37→20:54)
--- NOTE | 2018-11-17 12:49 | PN ---
DATE OF SERVICE: 11/16/18 SUBJECTIVE: 78-year-old white female hospitalized with cellulitis of the left arm along with bilateral leg edema with exacerbation of COPD. The patient looks a lot better. She is being treated with nebs treatment, IV Rocephin, also nebs treatment. The patient's condition has improved. She is feeling better. She is sitting up in the chair and eating. She looks much better. Hydration status has improved on physical exam. PHYSICAL EXAMINATION: VITAL SIGNS: Temperature 98.2, pulse 68, respiratory rate 18, blood pressure 150/77, pulse ox 98%. HEENT: Head normocephalic, atraumatic. Eyes: Extraocular muscles are intact. Pupils are equal, round and reactive to light and accommodation. Ears: No lesions. Nose appeared normal. Throat: No exudate or erythema. NECK: Supple. No JVD, no carotid bruit. No lymphadenopathy or thyromegaly. LUNGS: Decreased breath sounds but clear to auscultation. Percussion note normal. Chest symmetrical. HEART: S1, S2, no S3. No murmurs. No cyanosis or clubbing. No ascites. Pulses: Dorsalis pedis and posterior tibial pulses +1 to +2 bilaterally. ABDOMEN: Soft. Nontender. Bowel sounds active. No CVA tenderness. No mass felt. EXTREMITIES: No edema. Full range of motion of all extremities, equal. NEUROLOGIC: No focal deficit. Cranial nerves II through XII are grossly intact. No headache, no double vision or headache. SKIN: Not dry. Intact. Turgor - normal. LYMPHATIC: No palpable lymph nodes/no lymphedema. MUSCULOSKELETAL: Normal joints with no swelling. Muscle tone is normal. ASSESSMENT: 1. Acute bronchitis seems to be resolving. 2. No evidence of cellulitis of the left arm at the present time. 3. Leg edema has resolved. 4. Severe chronic lung disease. 5. Continued heavy smoking. PLAN: 1. Continue antibiotics, steroids, nebs treatment. 2. The patient is strongly advised to quit smoking. In the past, effort has been in vain. PROGNOSIS: Poor. TIME SPENT: More than 30 minutes. Plan and coordination of the patient's care discussed in the presence of nurse. KOREY
[2018-11-17] MEDS: PULMICORT 1 MG/2 ML NEB SCH (20:05)
[2018-11-17] MEDS: ATIVAN PO SCH (20:53)
[2018-11-17] MEDS: SEROQUEL PO SCH (20:53)
[2018-11-17] MEDS: ZANAFLEX PO SCH (20:54)
[2018-11-18] MEDS: NORCO 10-325 PO SCH ×5 (00:04→23:58)
[2018-11-18] MEDS: XOPENEX 1.25 MG NEB SCH ×3 (05:00→19:20)
[2018-11-18] MEDS: PROTONIX PO SCH (05:32)
--- NOTE | 2018-11-18 08:24 | PCM.PROG ---
Attending Provider: ATTENDING PROVIDER: Dr. BUDDY HINKLE This patient is seen with Rabia Trinidad, Nurse Practitioner. DATE OF SERVICE: 11/18/18 SUBJECTIVE: This 78 year old WHITE/ F was hospitalized 11/14/18. The patient is resting comfortably. Edema is better. She is still dizzy but has been hypotensive. MRI of the brain today. REVIEW OF SYSTEMS: CONSTITUTIONAL: No night sweats. No fatigue, malaise, lethargy. No fever or chills. Weakness. HEENT: Eyes: No visual changes. No eye pain. No eye discharge. ENT: No runny nose. No epistaxis. No sinus pain. No odynophagia. No congestion. RESPIRATORY: No cough, no congestion. No hemoptysis. No shortness of breath. CARDIOVASCULAR: No angina symptoms. No CHF symptoms. No atypical chest pain for CAD. No palpitations. No orthopnea.. GASTROINTESTINAL: No abdominal pain. No nausea or vomiting. No diarrhea or constipation. No hematemesis. No hematochezia. GENITOURINARY: No urgency. No frequency. No dysuria. No hematuria. No obstructive symptoms. No discharge. No pain. No significant abnormal bleeding. MUSCULOSKELETAL: No musculoskeletal pain; no joint swelling. NEUROLOGICAL: Awake, alert, oriented to time, place and person. No headache. No neck pain. No syncope. No seizures. Dizziness. PSYCHIATRIC: Not anxious. No depression. No suicidal thoughts. No homicidal thoughts. SKIN: No rash. Multiple skin tears. ENDOCRINE: No unexplained weight loss. No weight gain. HEMATOLOGIC/LYMPHATIC: No anemia. No purpura. No petechiae. No prolonged or excessive bleeding. No palpable lymph nodes. PHYSICAL EXAMINATION: GENERAL: The patient is awake, alert and oriented, lying in bed in no distress. VITAL SIGNS: Temperature 98.0 F, Pulse 51, Respiratory Rate 18, BP 101/50, Pulse Ox 94% HEENT: Head normocephalic, atraumatic. Eyes: Extraocular muscles are intact. Pupils are equal, round and reactive to light and accommodation. Ears: No lesions. Nose appeared normal. Throat: No exudate or erythema. NECK: Supple. No JVD, no carotid bruit. No lymphadenopathy or thyromegaly. LUNGS: Decreased breath sounds. Clear to auscultation. Percussion note normal. Chest symmetrical. HEART: S1, S2, no S3. No murmurs. No cyanosis or clubbing. No ascites. Pulses: Dorsalis pedis and posterior tibial pulses +1 to +2 both sides. ABDOMEN: Soft. Non-tender. Bowel sounds active. No CVA tenderness. No mass felt. EXTREMITIES: No edema. Full range of motion of all extremities, equal. NEUROLOGIC: No focal deficit. Cranial nerves II through XII are grossly intact. No headache, no double vision or headache. SKIN: Not dry. Intact. Turgor-normal. Severe skin tear on left forearm. No signs of infection. LYMPHATIC: No palpable lymph nodes/no lymphedema. MUSCULOSKELETAL: Normal joints with no swelling. Muscle tone is normal. LAB REVIEW: 11/18/18 04:54 11/18/18 04:54 11/18/18 04:54: Sodium 137.2, Potassium 3.53, Chloride 112.9 H, Carbon Dioxide 26.0, Anion Gap 1.83, BUN 10.4, Creatinine 0.56 L, Estimated GFR (MDRD) 105.00, BUN/Creatinine Ratio 18.57, Glucose 97.8, Calcium 6.59 L, Total Bilirubin 0.24, AST 46.0 H D, ALT 32.4, Alkaline Phosphatase 114.8, Total Protein 3.89 L, Albumin 1.56 L, Globulin 2.33, Albumin/Globulin Ratio 0.66 11/18/18 04:54: WBC 4.51 L, RBC 2.97 L, Hgb 9.1 L, Hct 29.6 L, MCV 99.7 H, MCH 30.6, MCHC 30.7 L, RDW Coeff of Lester 15.2 H, Plt Count 193, Immature Gran % (Auto ) 0.7, Neut % (Auto) 59.2, Lymph % (Auto) 26.8, [place] % (Auto) 8.0, Eos % (Auto) 4.4, Baso % (Auto) 0.9, Immature Gran # (Auto) 0.0, Neut # (Auto) 2.7, Lymph # ( Auto) 1.2, [place] # (Auto) 0.4, Eos # (Auto) 0.2, Baso # (Auto) 0.0 ASSESSMENT: Please see below. 1. Dizziness 2. Hypotension 3. Generalized weakness. 4. Cellulitis left arm, improving. PLAN: 1. Decreased Diovan to 160mg daily 2. Leave left forearm to air. 3. MRI of brain today 4. The patient had multiple followup appointment in June with Landy SAHU and Dr. Ybarra, unsure if the patient kept appointment. We will confirm with the Daughter. Plan and coordination of the patient's care discussed in the presence of Whizzer and nurse. SCRIBED BY: DEBBIE ALLEN Youth Support Worker scribed while in presence of service performed by Dr. Hinkle/Rabia Trinidad APRN on 11/18/18 ([id number])
[2018-11-18] MEDS: PLAVIX PO SCH (09:12)
[2018-11-18] MEDS: ASPIRIN EC PO SCH (09:12)
[2018-11-18] MEDS: NAMENDA PO SCH ×2 (09:12→20:07)
[2018-11-18] MEDS: SYMMETREL PO SCH (09:12)
[2018-11-18] MEDS: ARICEPT PO SCH (09:12)
[2018-11-18] MEDS: NICODERM 21 MG TD SCH (09:13)
[2018-11-18] MEDS: DIOVAN PO SCH (09:13)
[2018-11-18] MEDS: LIDOCAINE HCL 1% SDV IM SCH (09:16)
[2018-11-18] MEDS: ROCEPHIN 1 GM VIAL IM SCH (09:16)
[2018-11-18] MEDS ORDERED: ATIVAN IM STA (09:17)
[2018-11-18] MEDS: SPIRIVA IH SCH (09:23)
[2018-11-18] MEDS: ANUCORT-HC RC SCH ×2 (09:31→20:08)
--- NOTE | 2018-11-18 12:13 | MRI ---
EXAM: Brain MRI with and without contrast. HISTORY: Dizziness. COMPARISON: Head CT 09/25/2018 and brain MRI 06/23/2016. TECHNIQUE: Multiplanar, multisequence MR images were acquired of the brain before and after administ ration of 9 ml Omniscan intravenous contrast. FINDINGS: The midline structures are central and the craniocervical junction is unremarkable. The v entricles, sulci and cisterns are mildly prominent compatible with age related involutional changes. There are no abnormal extra-axial fluid collections. There is a band of periventricular T2 hyperintensity with more focal patchy T2 hyperintensity in the bifrontal and biparietal periventricular white matter. Patchy T2 hyperintensities are present in the supratentorial white matter and megan compatible with moderate leukomalacia. This shows T2 shine thr ough. Allowing for differences in technique, these findings are stable compared to previously. Ther e is a small chronic infarct in the superior right parietal lobe near the convexity and there is a sm all chronic infarct in the anterior left basal ganglia associated with ex vacuo enlargement of the le ft frontal horn. There is a focal area of hyperintense T2 signal gliosis in the medial right thalamu s which is more well defined than previously which probably represents a chronic lacuna. There is no diffusion restriction to suggest acute hypoperfusion or infarction. There are no abnormal foci of d ark gradient echo signal. A small amount of dark echo signal is present in the dentate nuclei bilate rally consistent with physiologic mineral deposition. The corpus callosum is normal. The pituitary gland is unremarkable. After administration of gadolinium, no enhancing lesions are identified. There are no intraorbital masses. Metallic artifact is present in the right frontal scalp and is unc hanged from the previous exams. Minor scattered mucosal thickening is present. The ethmoid air cell s bilaterally which may be physiologic. Remainder the paranasal sinuses are clear. There is septal thickening and sclerosis in the mastoid air cells bilaterally consistent with mild mucosal thickening . This is compatible with sequela of chronic disease involving a mild to moderate number of the mast oid air cells bilaterally. There is no abnormal contrast enhancement in the internal auditory canals labyrinthine structures. There is intermediate T1 and intermediate to bright T2 signal on the right internal carotid artery fr om the distal cervical segment to the supraclinoid segment unchanged from previously consistent with chronic occlusion in the ne flow voids are present in the remainder of the major arteries of the circ le of [place]. Dural venous sinuses are patent. Upper cervical hypertrophic facet arthropathy is present. IMPRESSION: 1. No intracranial mass, hemorrhage or acute cerebral infarct. 2. Age related involutional changes and stable moderate chronic ischemic small vessel disease. 3. 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 4. 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
--- NOTE | 2018-11-18 13:03 | PN ---
DATE OF SERVICE: 11/17/18 SUBJECTIVE: 78 year old white female was hospitalized with acute shortness of breath, cough and congestion. The patient has acute exacerbation of COPD. She is being treated with antibiotics and steroids, NEBS. She is responding well. The patient is a heavy smoker now on NicoDerm patch as usual. Left arm swelling, cellulitis has subsided. Leg edema has flattened. REVIEW OF SYSTEMS: CONSTITUTIONAL: No night sweats. No fatigue, malaise, lethargy. No fever or chills. Weakness. HEENT: Eyes: No visual changes. No eye pain. No eye discharge. ENT: No runny nose. No epistaxis. No sinus pain. No sore throat. No odynophagia. No congestion. RESPIRATORY: No cough, no congestion. No hemoptysis. No shortness of breath. CARDIOVASCULAR: No angina symptoms. No CHF symptoms. No atypical chest pain for CAD. No palpitations. No PND. No orthopnea. GASTROINTESTINAL: No abdominal pain. No nausea or vomiting. No diarrhea or constipation. No hematemesis. No hematochezia. The patient says that her appetite is good and she is able to eat three meals and able to walk in the room. GENITOURINARY: No urgency. No frequency. No dysuria. No hematuria. No obstructive symptoms. No discharge. No pain. No significant abnormal bleeding. MUSCULOSKELETAL: No musculoskeletal pain; no joint swelling. NEUROLOGICAL: No headache. No neck pain. No syncope. No seizures. Dizziness for past 12 hours not responding to Antivert. No blackout spell. No double vision. PSYCHIATRIC: Not anxious. No depression. No suicidal thoughts. No homicidal thoughts. SKIN: No rash. No lesions. No wounds. ENDOCRINE: No unexplained weight loss. No weight gain. HEMATOLOGIC/LYMPHATIC: No anemia. No purpura. No petechiae. No prolonged or excessive bleeding. No palpable lymph nodes. PHYSICAL EXAMINATION: VITAL SIGNS: Temperature 98.3, pulse 67, respiratory rate 18, blood pressure 150/70 and pulse ox 97% on room air. HEENT: Head normocephalic, atraumatic. Eyes: Extraocular muscles are intact. Pupils are equal, round and reactive to light and accommodation. Ears: No lesions. Nose appeared normal. Throat: No exudate or erythema. NECK: Supple. No JVD, no carotid bruit. No lymphadenopathy or thyromegaly. LUNGS: Decreased breath sounds but clear to auscultation. Percussion note normal. Chest symmetrical. HEART: S1, S2, no S3. No murmurs. No cyanosis or clubbing. No ascites. Pulses: Dorsalis pedis and posterior tibial pulses +1 to +2 bilaterally. ABDOMEN: Soft. Nontender. Bowel sounds active. No CVA tenderness. No mass felt. EXTREMITIES: No edema. Full range of motion of all extremities, equal. NEUROLOGIC: No focal deficit. Cranial nerves II through XII are grossly intact. No headache, no double vision or headache. SKIN: Not dry. Intact. Turgor - normal. LYMPHATIC: No palpable lymph nodes/no lymphedema. MUSCULOSKELETAL: Normal joints with no swelling. Muscle tone is normal. LABS: Hgb 10, hct 33, WBC 5,800 normal differential, creatinine 0.5, BUN 13, potassium 3.8. The patient's liver enzymes have gone up this morning. ASSESSMENT: 1. Acute bronchitis/chronic lung disease, seems to be resolving 2. Severe chronic lung disease 3. Chronic anemia 4. Osteoporosis 5. Heavy smoking with severe chronic lung disease. 6. Nausea 7. Elevation of liver enzymes PLAN: 1. Discontinue Flagyl 2. The patient is status post cholecystectomy, will continue to monitor liver enzymes. The patient's abdomen is soft, says that her appetite is normal. She says that she feel nauseated and sick to the stomach 30 minutes after she eats and it passes after that. No vomiting. 3. Dizziness with mostly head movement. No history of head injury. 4. MRI of the head with contrast in the morning TIME SPENT: More than 30 minutes. Plan and coordination of the patient's care discussed in the presence of nurse. KOREY
--- NOTE | 2018-11-18 14:27 | PN ---
DATE OF SERVICE: 11/18/18 SUBJECTIVE: The patient was seen and examined with Nurse Practitioner. The patient's hgb has dropped today. We will monitor the HGB. Her main problem is continued smoking with poor lifestyle. PROGNOSIS: Poor CONDITION: Stable. CARDIOVASCULAR STATUS: Stable. TIME SPENT: More than 30 minutes. Plan and coordination of the patient's care discussed in the presence of nurse. KOREY
[2018-11-18] MEDS: PULMICORT 1 MG/2 ML NEB SCH (19:20)
[2018-11-18] MEDS: SEROQUEL PO SCH (20:07)
[2018-11-18] MEDS: ATIVAN PO SCH (20:07)
[2018-11-18] MEDS: ZANAFLEX PO SCH (20:08)
[2018-11-19] MEDS: XOPENEX 1.25 MG NEB SCH ×3 (05:02→22:15)
[2018-11-19] MEDS: PULMICORT 1 MG/2 ML NEB SCH ×2 (05:02→22:15)
[2018-11-19] MEDS: NORCO 10-325 PO SCH ×4 (05:43→23:23)
[2018-11-19] MEDS: PROTONIX PO SCH (05:43)
[2018-11-19] MEDS: ASPIRIN EC PO SCH (08:45)
[2018-11-19] MEDS: SPIRIVA IH SCH (09:43)
[2018-11-19] MEDS: ROCEPHIN 1 GM VIAL IM SCH (09:44)
[2018-11-19] MEDS: ANUCORT-HC RC SCH ×2 (09:44→20:02)
[2018-11-19] MEDS: LIDOCAINE HCL 1% SDV IM SCH (09:44)
[2018-11-19] MEDS: SYMMETREL PO SCH (09:45)
[2018-11-19] MEDS: ARICEPT PO SCH (09:45)
[2018-11-19] MEDS: DIOVAN PO SCH (09:45)
[2018-11-19] MEDS: NICODERM 21 MG TD SCH (09:45)
[2018-11-19] MEDS: BACTROBAN TP SCH ×3 (09:45→20:00)
[2018-11-19] MEDS: NAMENDA PO SCH ×2 (09:45→20:01)
[2018-11-19] MEDS: PLAVIX PO SCH (09:46)
--- NOTE | 2018-11-19 09:53 | PCM.PROG ---
Attending Provider: ATTENDING PROVIDER: Dr. BUDDY CHILDS This patient is seen with Rabia Trinidad, Nurse Practitioner. DATE OF SERVICE: 11/19/18 SUBJECTIVE: This 78 year old WHITE/ F was hospitalized 11/14/18. The patient is resting comfortably. She is having less dizziness today. Lesion on left arm seems to dry. MRI showed changes associated with aging process. REVIEW OF SYSTEMS: CONSTITUTIONAL: No night sweats. No fatigue, malaise, lethargy. No fever or chills. Weakness. HEENT: Eyes: No visual changes. No eye pain. No eye discharge. ENT: No runny nose. No epistaxis. No sinus pain. No odynophagia. No congestion. RESPIRATORY: No cough, no congestion. No hemoptysis. Shortness of breath. CARDIOVASCULAR: No angina symptoms. No CHF symptoms. No atypical chest pain for CAD. No palpitations. No orthopnea.. GASTROINTESTINAL: No abdominal pain. No nausea or vomiting. No diarrhea or constipation. No hematemesis. No hematochezia. GENITOURINARY: No urgency. No frequency. No dysuria. No hematuria. No obstructive symptoms. No discharge. No pain. No significant abnormal bleeding. MUSCULOSKELETAL: No musculoskeletal pain; no joint swelling. NEUROLOGICAL: Awake, alert, oriented to time, place and person. No headache. No neck pain. No syncope. No seizures. No dizziness. PSYCHIATRIC: Not anxious. No depression. No suicidal thoughts. No homicidal thoughts. SKIN: No rash. No lesions. No wounds. ENDOCRINE: No unexplained weight loss. No weight gain. HEMATOLOGIC/LYMPHATIC: No anemia. No purpura. No petechiae. No prolonged or excessive bleeding. No palpable lymph nodes. PHYSICAL EXAMINATION: GENERAL: The patient is awake, alert and oriented, lying in bed in no distress. VITAL SIGNS: Temperature 98.6 F, Pulse 47, Respiratory Rate 20, BP 124/58, Pulse Ox 96% HEENT: Head normocephalic, atraumatic. Eyes: Extraocular muscles are intact. Pupils are equal, round and reactive to light and accommodation. Ears: No lesions. Nose appeared normal. Throat: No exudate or erythema. NECK: Supple. No JVD, no carotid bruit. No lymphadenopathy or thyromegaly. LUNGS: Diminished breath sounds. Clear to auscultation. Percussion note normal. Chest symmetrical. HEART: S1, S2, no S3. No murmurs. No cyanosis or clubbing. No ascites. Pulses: Dorsalis pedis and posterior tibial pulses +1 to +2 both sides. ABDOMEN: Soft. Non-tender. Bowel sounds active. No CVA tenderness. No mass felt. EXTREMITIES: No edema. Full range of motion of all extremities, equal. Abrasion to left arm. Localized erythema. No drainage seems to be drying. NEUROLOGIC: No focal deficit. Cranial nerves II through XII are grossly intact. No headache, no double vision or headache. SKIN: Not dry. Intact. Turgor-normal. LYMPHATIC: No palpable lymph nodes/no lymphedema. MUSCULOSKELETAL: Normal joints with no swelling. Muscle tone is normal. LAB REVIEW: 11/19/18 05:02 11/19/18 05:02 11/19/18 05:02: Sodium 138.6, Potassium 3.77, Chloride 112.7 H, Carbon Dioxide 26.6, Anion Gap 3.07, BUN 9.2, Creatinine 0.64, Estimated GFR (MDRD) 90.00, BUN/ Creatinine Ratio 14.37, Glucose 101.8, Calcium 7.03 L, Total Bilirubin 0.29, AST 24.9, ALT 27.4, Alkaline Phosphatase 119.1, Total Protein 4.05 L, Albumin 1.67 L, Globulin 2.38, Albumin/Globulin Ratio 0.70 11/19/18 05:02: WBC 4.66, RBC 3.23 L, Hgb 9.7 L, Hct 32.3 L, MCV 100.0 H, MCH 30.0, MCHC 30.0 L, RDW Coeff of Lester 15.2 H, Plt Count 210, Immature Gran % (Auto ) 0.9, Neut % (Auto) 55.3, Lymph % (Auto) 28.8, [place] % (Auto) 7.7, Eos % (Auto) 6.4, Baso % (Auto) 0.9, Immature Gran # (Auto) 0.0, Neut # (Auto) 2.6, Lymph # ( Auto) 1.3, [place] # (Auto) 0.4, Eos # (Auto) 0.3, Baso # (Auto) 0.0 ASSESSMENT: Please see below. 1. Cellulitis left arm seems to be improving 2. Anemia, hgb stable today 3. Leg edema improved 4. COPD 5. Dizziness improved. PLAN: 1. Bacroban leave area to open to air. 2. Anemia profile 3. Will monitor Hgb Plan and coordination of the patient's care discussed in the presence of Utility Systems Repairer Operator and nurse. SCRIBED BY: DEBBIE ALLEN Breakfast Manager scribed while in presence of service performed by Dr. Childs/Rabia Trinidad APRN on 11/19/18 ([id number])
[2018-11-19] MEDS: TYLENOL PO PRN (19:52)
[2018-11-19] MEDS: ATIVAN PO SCH (20:01)
[2018-11-19] MEDS: ZANAFLEX PO SCH (20:01)
[2018-11-19] MEDS: SEROQUEL PO SCH (20:01)
[2018-11-20] MEDS: XOPENEX 1.25 MG NEB SCH ×3 (04:55→20:10)
[2018-11-20] MEDS: PROTONIX PO SCH (05:35)
[2018-11-20] MEDS: NORCO 10-325 PO SCH ×3 (05:35→17:40)
--- NOTE | 2018-11-20 08:54 | PCM.PROG ---
Attending Provider: ATTENDING PROVIDER: Dr. BUDDY CHILDS DATE OF SERVICE: 11/20/18 SUBJECTIVE: This 78 year old WHITE/ F was hospitalized 11/14/18 with left edema and shortness of breath and cellulitis of right arm. The patient's cellulitis is a lot better and shortness of breath is less than on admission. Leg edema has subsided. Severe anemia is symptomatic with shortness of breath. Hgb and Hct is stable. The patient had some rectal bleeding from hemorrhoids which has subsided. Dizziness was worked up and looks like vestibular dysfunction with head movement. MRI showed no acute findings. REVIEW OF SYSTEMS: CONSTITUTIONAL: No night sweats. No fatigue, malaise, lethargy. No fever or chills. HEENT: Eyes: No visual changes. No eye pain. No eye discharge. ENT: No runny nose. No epistaxis. No sinus pain. No odynophagia. No congestion. RESPIRATORY: No cough, no congestion. No hemoptysis. No shortness of breath. CARDIOVASCULAR: No angina symptoms. No CHF symptoms. No atypical chest pain for CAD. No palpitations. No orthopnea.. GASTROINTESTINAL: No abdominal pain. No nausea or vomiting. No diarrhea or constipation. No hematemesis. No hematochezia. GENITOURINARY: No urgency. No frequency. No dysuria. No hematuria. No obstructive symptoms. No discharge. No pain. No significant abnormal bleeding. MUSCULOSKELETAL: No musculoskeletal pain; no joint swelling. NEUROLOGICAL: Awake, alert, oriented to time, place and person. No headache. No neck pain. No syncope. No seizures. No dizziness. PSYCHIATRIC: Not anxious. No depression. No suicidal thoughts. No homicidal thoughts. SKIN: No rash. No lesions. No wounds. ENDOCRINE: No unexplained weight loss. No weight gain. HEMATOLOGIC/LYMPHATIC: No anemia. No purpura. No petechiae. No prolonged or excessive bleeding. No palpable lymph nodes. PHYSICAL EXAMINATION: GENERAL: The patient is awake, alert and oriented, lying in bed in no distress. VITAL SIGNS: Temperature 98.5 F, Pulse 59, Respiratory Rate 18, BP 170/73, Pulse Ox 99% HEENT: Head normocephalic, atraumatic. Eyes: Extraocular muscles are intact. Pupils are equal, round and reactive to light and accommodation. Ears: No lesions. Nose appeared normal. Throat: No exudate or erythema. NECK: Supple. No JVD, no carotid bruit. No lymphadenopathy or thyromegaly. LUNGS: Clear to auscultation. Percussion note normal. Chest symmetrical. HEART: S1, S2, no S3. No murmurs. No cyanosis or clubbing. No ascites. Pulses: Dorsalis pedis and posterior tibial pulses +1 to +2 both sides. ABDOMEN: Soft. Non-tender. Bowel sounds active. No CVA tenderness. No mass felt. EXTREMITIES: No edema. Full range of motion of all extremities, equal. NEUROLOGIC: No focal deficit. Cranial nerves II through XII are grossly intact. No headache, no double vision or headache. SKIN: Warm and dry. Intact. Turgor-normal. LYMPHATIC: No palpable lymph nodes/no lymphedema. MUSCULOSKELETAL: Normal joints with no swelling. Muscle tone is normal. LAB REVIEW: 11/20/18 05:40 11/20/18 05:40 11/20/18 05:40: Sodium 137.9, Potassium 3.79, Chloride 111.8 H, Carbon Dioxide 25.3, Anion Gap 4.59, BUN 9.2, Creatinine 0.49 L, Estimated GFR (MDRD) 123.00, BUN/Creatinine Ratio 18.77, Glucose 98.9, Calcium 6.96 L, Total Bilirubin 0.27, AST 31.3, ALT 27.4, Alkaline Phosphatase 138.8, Total Protein 4.58 L, Albumin 1.89 L, Globulin 2.69, Albumin/Globulin Ratio 0.70 11/20/18 05:40: WBC 5.46, RBC 3.37 L, Hgb 10.3 L, Hct 33.1 L, MCV 98.2, MCH 30.6 , MCHC 31.1 L, RDW Coeff of [place] 15.0 H, Plt Count 229, Immature Gran % (Auto) 0.7, Neut % (Auto) 57.2, Lymph % (Auto) 26.7, [place] % (Auto) 7.0, Eos % (Auto) 7.7 H, Baso % (Auto) 0.7, Immature Gran # (Auto) 0.0, Neut # (Auto) 3.1, Lymph # (Auto) 1.5, [place] # (Auto) 0.4, Eos # (Auto) 0.4, Baso # (Auto) 0.0 11/19/18 05:02: Transferrin 72 L 11/19/18 05:02: Iron 47.5, TIBC 130 L, % Saturation 37, Vitamin B12 957 H 11/19/18 05:02: Ferritin 46.10, Folate 5.53 11/19/18 05:02: Reticulocyte % (Auto) 2.56, Absolute Retic 0.0832, Retic Hgb Equivalent 36.4 ASSESSMENT: Please see below. 1. Vestibular dysfunction with dizziness will add Valium to Antivert PLAN: 1. Increase fluids 2. Increase Diovan with systolic hypertension Plan and coordination of the patient's care discussed in the presence of Helpdesk Administrator and nurse. CONDITION: Stable SCRIBED BY: Eric PLEITEZ scribed while in presence of service performed by Dr. BUDDY CHILDS on 11/20/18 ([id number])
[2018-11-20] MEDS: BACTROBAN TP SCH ×2 (09:44→20:35)
[2018-11-20] MEDS: SPIRIVA IH SCH (09:45)
[2018-11-20] MEDS: ROCEPHIN 1 GM VIAL IM SCH (09:50)
[2018-11-20] MEDS: LIDOCAINE HCL 1% SDV IM SCH (09:51)
[2018-11-20] MEDS: TYLENOL PO PRN (09:51)
[2018-11-20] MEDS: ANTIVERT PO SCH ×4 (09:52→20:36)
[2018-11-20] MEDS: ANUCORT-HC RC SCH ×3 (09:52→20:50)
[2018-11-20] MEDS: ASPIRIN EC PO SCH (09:52)
[2018-11-20] MEDS: VALIUM PO SCH ×4 (09:53→20:36)
[2018-11-20] MEDS: DIOVAN PO SCH (09:53)
[2018-11-20] MEDS: SYMMETREL PO SCH (09:53)
[2018-11-20] MEDS: NAMENDA PO SCH ×2 (09:53→20:36)
[2018-11-20] MEDS: NICODERM 21 MG TD SCH (09:53)
[2018-11-20] MEDS: PLAVIX PO SCH (09:54)
[2018-11-20] MEDS: ARICEPT PO SCH (09:54)
--- NOTE | 2018-11-20 10:10 | PN ---
DATE OF SERVICE: 11/19/18 SUBJECTIVE: The patient was seen and examined with the Nurse Practitioner. The patient's condition is slowly improving. She is less dizzy. MRI didn't show any sign of subdural hemorrhage. The patient's overall status is improving. The patient is malnourished, heavy smoker with severe chronic lung disease. PROGNOSIS: Poor TIME SPENT: More than 30 minutes. Plan and coordination of the patient's care discussed in the presence of nurse. KOREY
--- NOTE | 2018-11-20 13:56 | RS.PTINEVL ---
Subjective - Patient information Date of Evaluation: 11/20/18 Date of Arrival on Unit: 11/14/18 Admitted From:: Home Diagnosis: cellulitis LUE, anemia Usual Living Arrangement: With Others Living Arrangement Comments: lives with daughter and son in law Home Environment: House, Stairs (few), Rail Medical History: COPD, Arthritis Medical History Comments:: parkinson's, dementia, GI bleed, chronic bronchitis. LATEX ALLERGY?: No Surgical History: Hysterectomy Surgical History Comments:: Appey, thyroidectomy, Medications: see chart Subjective Information/ Patient Comments:: pt states she has been dizzy since they tried to start IV in her neck. States she is dizzy sitting in recliner. - Level of function Prior to this admission, the patient could do the following:: Independent Selfcare, Independent ADL's, Independent Ambulation Current Equipment Used at Home: walker, cane, oxygen Interventions - Objective Patient Orientation: Person, Place, Time Current Interventions: IV's, Telemetry Observation: pt with large open wound on L forearm. Multiple areas of bruising with edema R upper arm. Range of Motion - ROM Right Upper Extremity AROM: WFL's Left Upper Extremity AROM: WFL's Right Lower Extremity AROM: WFL's Left Lower Extremity AROM: WFL's Muscle Strength - Muscle Strength Right Upper Extremity Strength: Mild Weakness (grossly 4-/5) Left Upper Extremity Strength: Mild Weakness (grossly 4-/5) Right Lower Extremity Strength: Mild Weakness (hip flex 3+/5, knee flex/ext 4-/5 , ankle DF/PF 4-/5) Left Lower Extremity Strength: Mild Weakness (hip flex 3+/5, knee flex/ext 4-/5 , ankle DF/PF 4-/5) Sensation - Sensation Right Upper Extremity Sensation: Intact/Normal Left Upper Extremity Sensation: Intact/Normal Right Lower Extremity Sensation: Intact/Normal Left Lower Extremity Sensation: Intact/Normal Balance - Sitting Balance and Reactions Static Sitting Balance: Fair Dynamic Sitting Balance: Fair Sitting Equilibrium Reactions: Delayed Left, Delayed Right Sitting Protective Reactions: Delayed Left, Delayed Right - Standing Balance and Reactions Static Standing Balance: Poor Dynamic Standing Balance: Poor Standing Equilibrium Reactions: Delayed Left, Delayed Right Standing Protective Reactions: Delayed Left, Delayed Right Functional Mobility - Bed Mobility Comments:: pt seen sitting up in chair and requests not to go back to bed. - Transfers Sit to Stand: Min Assist, 2 person assist Stand to Sit: Min Assist, 2 person assist - Safety Awareness Safety Awareness: Fair SIMI INDEX SCORE: n/a Ambulation - Ambulation Assistive Device Used: Rolling Walker Orthotic/Prosthetic Device: No Distance: 75ft Assistance needed with Ambulation: CGA, Min Assist, 2 person assist Gait Deviations: Forward posture, Short stride, Scissor gait, Deviates from path Ambulation Comments: pt amb with flexed posture, requires assist to guide rwx and cues for step length. pt c/o dizziness during amb with 2 episodes of LOB required min x 2 to prevent fall. Factors Affecting Ambulation: Decreased Balance, Weakness, Dizziness, Decreased Safety, Cognitive Status, Limited Endurance Treatment time - Time with patient Length of Evaluation: 22 Total treatment time: 26 Patient Education - Education Patient Education: Home Exercise Program, Education of Plan of Care Teaching Recipient: Patient Teaching Methods: Discussion Comments: discussion with patient regarding POC as well as safety with transfers and gait. Assessment - Assessment Problem List:: Decreased level of function, Requires training/education, Decreased safety/Risk of falls, Weakness Rehab Potential: Fair Further Therapy Indicated?: Yes Candidate for Swing Bed for Therapy Services?: Would need to evaluate pt for swing bed at a later date. Evaluation Complexity: HISTORY: Medium, EXAM OF BODY SYSTEMS: Medium, CLINICAL PRESENTATION: Medium, CLINICAL DECISION MAKING: Medium Short Term Goals GOAL #1: pt demonstrate independence rolling and scooting in bed. Goal to be met by: 11/22/18 GOAL #2: pt transfer sup to/from sit CGA Goal to be met by: 11/22/18 GOAL #3: Transfer sit to/from stand CGA Goal to be met by: 11/22/18 GOAL #4: pt amb with rwx 100ft with CGA with no LOB Goal to be met by: 11/22/18 GOAL #5: Improve dyn stand balance fair - Goal to be met by: 11/22/18 Halfway Goals GOAL #1: pt transfer sit to/from stand SBA Goal to be met by: 11/25/18 GOAL #2: pt amb with rwx functional household distances CGA to SBA Goal to be met by: 11/25/18 GOAL #3: pt ascend/descend 3 steps with HR with CGA Goal to be met by: 11/25/18 Plan Plan of Care: Therapeutic EX, Therapeutic Activity Other:: gait training Frequency of Treatment: 1-2 X day, as tolerated Duration of Treatment: 5 days Anticipated Discharge Destination: Home Treatment Diagnosis (ICD 10 Codes): R26.81 balance impaired. R26.2 difficulty walking. R 29.6 falls Has the Physician been added for Co-signature?: Yes
[2018-11-20] MEDS: PULMICORT 1 MG/2 ML NEB SCH (20:10)
[2018-11-20] MEDS: ATIVAN PO SCH (20:36)
[2018-11-20] MEDS: ZANAFLEX PO SCH (20:36)
[2018-11-20] MEDS: SEROQUEL PO SCH (20:36)
[2018-11-21] MEDS: NORCO 10-325 PO SCH ×5 (00:05→23:11)
[2018-11-21] MEDS: XOPENEX 1.25 MG NEB SCH ×3 (04:55→19:50)
[2018-11-21] MEDS: PROTONIX PO SCH (05:41)
--- NOTE | 2018-11-21 08:21 | PCM.PROG ---
Attending Provider: ATTENDING PROVIDER: Dr. BUDDY CHILDS This patient is seen with Rabia Trinidad, Nurse Practitioner. DATE OF SERVICE: 11/21/18 SUBJECTIVE: This 78 year old WHITE/ F was hospitalized 11/14/18. The patient is resting comfortably. Cellulitis of left arm is slowly improving. We are awaiting HGB for today. If stable I do believe that she is in good condition to go home. REVIEW OF SYSTEMS: CONSTITUTIONAL: No night sweats. No fatigue, malaise, lethargy. No fever or chills. Weakness. HEENT: Eyes: No visual changes. No eye pain. No eye discharge. ENT: No runny nose. No epistaxis. No sinus pain. No odynophagia. No congestion. RESPIRATORY: No cough, no congestion. No hemoptysis. No shortness of breath. CARDIOVASCULAR: No angina symptoms. No CHF symptoms. No atypical chest pain for CAD. No palpitations. No orthopnea.. GASTROINTESTINAL: No abdominal pain. No nausea or vomiting. No diarrhea or constipation. No hematemesis. No hematochezia. GENITOURINARY: No urgency. No frequency. No dysuria. No hematuria. No obstructive symptoms. No discharge. No pain. No significant abnormal bleeding. MUSCULOSKELETAL: No musculoskeletal pain; no joint swelling. NEUROLOGICAL: Awake, alert, oriented to time, place and person. No headache. No neck pain. No syncope. No seizures. No dizziness. PSYCHIATRIC: Not anxious. No depression. No suicidal thoughts. No homicidal thoughts. SKIN: No rash. No lesions. No wounds. Cellulitis left arm. ENDOCRINE: No unexplained weight loss. No weight gain. HEMATOLOGIC/LYMPHATIC: No anemia. No purpura. No petechiae. No prolonged or excessive bleeding. No palpable lymph nodes. PHYSICAL EXAMINATION: GENERAL: The patient is awake, alert and oriented, lying in bed in no distress. VITAL SIGNS: Temperature 98.1 F, Pulse 52, Respiratory Rate 18, BP 90/48, Pulse Ox 95% HEENT: Head normocephalic, atraumatic. Eyes: Extraocular muscles are intact. Pupils are equal, round and reactive to light and accommodation. Ears: No lesions. Nose appeared normal. Throat: No exudate or erythema. NECK: Supple. No JVD, no carotid bruit. No lymphadenopathy or thyromegaly. LUNGS: Diminished breath sounds. Clear to auscultation. Percussion note normal. Chest symmetrical. HEART: S1, S2, no S3. No murmurs. No cyanosis or clubbing. No ascites. Pulses: Dorsalis pedis and posterior tibial pulses +1 to +2 both sides. ABDOMEN: Soft. Non-tender. Bowel sounds active. No CVA tenderness. No mass felt. EXTREMITIES: No edema. Full range of motion of all extremities, equal. Left arm, no surrounding erythema or signs of infection. NEUROLOGIC: No focal deficit. Cranial nerves II through XII are grossly intact. No headache, no double vision or headache. SKIN: Not dry. Intact. Turgor-normal. LYMPHATIC: No palpable lymph nodes/no lymphedema. MUSCULOSKELETAL: Normal joints with no swelling. Muscle tone is normal. LAB REVIEW: 11/20/18 05:40 11/21/18 07:00 11/21/18 07:00: Sodium 135.8, Potassium 3.96, Chloride 114.8 H, Carbon Dioxide 22.7, Anion Gap 2.26, BUN 9.9, Creatinine 0.50 L, Estimated GFR (MDRD) 120.00, BUN/Creatinine Ratio 19.80, Glucose 86.3, Calcium 6.78 L, Total Bilirubin 0.20, AST 21.2, ALT 22.3, Alkaline Phosphatase 103.6 D, Total Protein 3.90 L, Albumin 1.60 L, Globulin 2.30, Albumin/Globulin Ratio 0.69 ASSESSMENT: Please see below. 1. Left arm cellulitis 2. COPD 3. Anemia likely due to hemorrhoids/ rectal bleeding 4. Leg edema resolved. PLAN: 1. CBC pending 2. Followup with GI at [facility] 3. Anticipate possible discharge today. Plan and coordination of the patient's care discussed in the presence of Logistics Clerk and nurse. SCRIBED BY: DEBBIE ALLEN Agriculture Professor scribed while in presence of service performed by Dr. Childs/Rabia Trinidad APRN on 11/21/18 ([id number])
[2018-11-21] MEDS: SPIRIVA IH SCH (08:48)
[2018-11-21] MEDS: BACTROBAN TP SCH ×2 (08:49→21:13)
[2018-11-21] MEDS: NAMENDA PO SCH ×2 (08:51→21:09)
[2018-11-21] MEDS: ANTIVERT PO SCH ×4 (08:51→21:09)
[2018-11-21] MEDS: PLAVIX PO SCH (08:51)
[2018-11-21] MEDS: ASPIRIN EC PO SCH (08:51)
[2018-11-21] MEDS: DIOVAN PO SCH (08:51)
[2018-11-21] MEDS: VALIUM PO SCH ×4 (08:51→21:09)
[2018-11-21] MEDS: SYMMETREL PO SCH (08:51)
[2018-11-21] MEDS: ARICEPT PO SCH (08:52)
[2018-11-21] MEDS: NICODERM 21 MG TD SCH (08:52)
[2018-11-21] MEDS: ANUCORT-HC RC SCH ×2 (08:52→21:08)
[2018-11-21] MEDS ORDERED: IMODIUM PO PRN (19:17)
[2018-11-21] MEDS ORDERED: IMODIUM PO STA (19:19)
[2018-11-21] MEDS: PULMICORT 1 MG/2 ML NEB SCH (19:50)
[2018-11-21] MEDS: SEROQUEL PO SCH (21:09)
[2018-11-21] MEDS: ZANAFLEX PO SCH (21:09)
[2018-11-21] MEDS: KEFLEX PO SCH (21:09)
[2018-11-21] MEDS: ATIVAN PO SCH (21:09)
[2018-11-22] MEDS: XOPENEX 1.25 MG NEB SCH ×2 (04:48→14:15)
[2018-11-22] MEDS: NORCO 10-325 PO SCH ×2 (05:42→11:55)
[2018-11-22] MEDS: PROTONIX PO SCH (05:42)
--- NOTE | 2018-11-22 09:08 | PCM.PROG ---
Attending Provider: ATTENDING PROVIDER: Dr. BUDDY CHILDS This patient is seen with Rabia Trinidad, Nurse Practitioner. DATE OF SERVICE: 11/22/18 SUBJECTIVE: This 78 year old WHITE/ F was hospitalized 11/14/18. The patient has had diarrhea yesterday and through the night. No blood in stool. Not much has changed in hgb since yesterday. REVIEW OF SYSTEMS: CONSTITUTIONAL: No night sweats. No fatigue, malaise, lethargy. No fever or chills. Weakness. HEENT: Eyes: No visual changes. No eye pain. No eye discharge. ENT: No runny nose. No epistaxis. No sinus pain. No odynophagia. No congestion. RESPIRATORY: No cough, no congestion. No hemoptysis. No shortness of breath. CARDIOVASCULAR: No angina symptoms. No CHF symptoms. No atypical chest pain for CAD. No palpitations. No orthopnea.. GASTROINTESTINAL: No abdominal pain. No nausea or vomiting.Diarrhea. No hematemesis. No hematochezia. GENITOURINARY: No urgency. No frequency. No dysuria. No hematuria. No obstructive symptoms. No discharge. No pain. No significant abnormal bleeding. MUSCULOSKELETAL: No musculoskeletal pain; no joint swelling. NEUROLOGICAL: Awake, alert, oriented to time, place and person. No headache. No neck pain. No syncope. No seizures. No dizziness. PSYCHIATRIC: Not anxious. No depression. No suicidal thoughts. No homicidal thoughts. SKIN: No rash. No lesions. No wounds. ENDOCRINE: No unexplained weight loss. No weight gain. HEMATOLOGIC/LYMPHATIC: No anemia. No purpura. No petechiae. No prolonged or excessive bleeding. No palpable lymph nodes. PHYSICAL EXAMINATION: GENERAL: The patient is awake, alert and oriented, lying in bed in no distress. VITAL SIGNS: Temperature 98.3 F, Pulse 63, Respiratory Rate 17, BP 109/53, Pulse Ox 96% HEENT: Head normocephalic, atraumatic. Eyes: Extraocular muscles are intact. Pupils are equal, round and reactive to light and accommodation. Ears: No lesions. Nose appeared normal. Throat: No exudate or erythema. NECK: Supple. No JVD, no carotid bruit. No lymphadenopathy or thyromegaly. LUNGS: Diminished breath sounds. Clear to auscultation. Percussion note normal. Chest symmetrical. HEART: S1, S2, no S3. No murmurs. No cyanosis or clubbing. No ascites. Pulses: Dorsalis pedis and posterior tibial pulses +1 to +2 both sides. ABDOMEN: Soft. Non-tender. Bowel sounds active. No CVA tenderness. No mass felt. EXTREMITIES: No edema. Full range of motion of all extremities, equal. Cellulitis left arm slight improved. NEUROLOGIC: No focal deficit. Cranial nerves II through XII are grossly intact. No headache, no double vision or headache. SKIN: Not dry. Intact. Turgor-normal. LYMPHATIC: No palpable lymph nodes/no lymphedema. MUSCULOSKELETAL: Normal joints with no swelling. Muscle tone is normal. LAB REVIEW: 11/22/18 04:45 11/22/18 04:45 11/22/18 04:45: Sodium 137.2, Potassium 3.85, Chloride 113.2 H, Carbon Dioxide 26.0, Anion Gap 1.85, BUN 8.5, Creatinine 0.53 L, Estimated GFR (MDRD) 112.00, BUN/Creatinine Ratio 16.03, Glucose 83.9, Calcium 6.89 L, Total Bilirubin 0.19 L , AST 20.0, ALT 20.8, Alkaline Phosphatase 108.7, Total Protein 3.89 L, Albumin 1.60 L, Globulin 2.29, Albumin/Globulin Ratio 0.69 11/22/18 04:45: WBC 6.94, RBC 2.92 L, Hgb 9.0 L, Hct 29.4 L, MCV 100.7 H, MCH 30.8, MCHC 30.6 L, RDW Coeff of Lester 15.3 H, Plt Count 220, Immature Gran % (Auto ) 0.6, Neut % (Auto) 63.0, Lymph % (Auto) 21.5, Kemper % (Auto) 8.2, Eos % (Auto) 6.1, Baso % (Auto) 0.6, Immature Gran # (Auto) 0.0, Neut # (Auto) 4.4, Lymph # ( Auto) 1.5, Kemper # (Auto) 0.6, Eos # (Auto) 0.4, Baso # (Auto) 0.0 11/21/18 08:40: Sodium 135.8, Potassium 3.96, Chloride 114.8 H, Carbon Dioxide 22.7, Anion Gap 2.26, BUN 9.9, Creatinine 0.50 L, Estimated GFR (MDRD) 120.00, BUN/Creatinine Ratio 19.80, Glucose 86.3, Calcium 6.78 L, Total Bilirubin 0.20, AST 21.2, ALT 22.3, Alkaline Phosphatase 103.6 D, Total Protein 3.90 L, Albumin 1.60 L, Globulin 2.30, Albumin/Globulin Ratio 0.69 11/21/18 07:00: WBC 6.27, RBC 3.30 L, Hgb 10.1 L, Hct 32.9 L, MCV 99.7 H, MCH 30.6, MCHC 30.7 L, RDW Coeff of Lester 15.4 H, Plt Count 246, Immature Gran % (Auto ) 0.8, Neut % (Auto) 60.1, Lymph % (Auto) 23.1, Kemper % (Auto) 8.0, Eos % (Auto) 7.0, Baso % (Auto) 1.0, Immature Gran # (Auto) 0.1, Neut # (Auto) 3.8, Lymph # ( Auto) 1.5, Kemper # (Auto) 0.5, Eos # (Auto) 0.4, Baso # (Auto) 0.1 ASSESSMENT: Please see below. 1. Left arm cellulitis 2. COPD 3. Anemia likely due to hemorrhoids/ rectal bleeding 4. Leg edema resolved. 5. Diarrhea. PLAN: 1. C-Diff pending 2. Possible discharge home 3. Appointment with [facility] 11/26 4. Appointment with [facility] 11/27 had missed previous appointment. Plan and coordination of the patient's care discussed in the presence of Silverer and nurse. EDUCATION: CONDITION: SCRIBED BY: DEBBIE ALLEN, Nuclear Station Operator scribed while in presence of service performed by Dr. Childs/Rabia Trinidad, HELDER on 11/22/18 ([id number])
[2018-11-22] MEDS: DIOVAN PO SCH (10:04)
[2018-11-22] MEDS: ASPIRIN EC PO SCH (10:04)
[2018-11-22] MEDS: NICODERM 21 MG TD SCH (10:04)
[2018-11-22] MEDS: SYMMETREL PO SCH (10:05)
[2018-11-22] MEDS: PLAVIX PO SCH (10:05)
[2018-11-22] MEDS: ANUCORT-HC RC SCH ×2 (10:05→10:08)
[2018-11-22] MEDS: ANTIVERT PO SCH ×2 (10:05→12:47)
[2018-11-22] MEDS: NAMENDA PO SCH (10:05)
[2018-11-22] MEDS: KEFLEX PO SCH (10:05)
[2018-11-22] MEDS: ARICEPT PO SCH (10:05)
[2018-11-22] MEDS: VALIUM PO SCH ×2 (10:05→12:47)
[2018-11-22] MEDS: TYLENOL PO PRN (10:15)
[2018-11-22] MEDS: SPIRIVA IH SCH (10:15)
[2018-11-22 14:15] VITALS: BP 90/56; TEMP 98.5
--- NOTE | 2018-11-22 14:18 | CM.DICTOOL ---
ADMISSION: 11/14/18 12:03 DISCHARGE: 2018 DATE OF SERVICE: 11/22/18 FINAL DIAGNOSIS CELLULITIS LEFT ARM LEG EDEMA RECTAL BLEEDING/HEMORRHOIDS CHRONIC BRONCHITIS HYPOKALEMIA TEMPORAL OCCLUSION OF RIGHT ICA PARKINSON'S DEMENTIA TREMORS ANEMIA HX. GI BLEED COPD EMPHYSEMA PNEUMONIA OXYGEN AT HS PULMONARY NODULE, 6MM RIGHT APICAL NEPHROLITHIASIS, LEFT 7.8 MM DIVERTICULOSIS IBS GERD PROLAPSE RECTUM OA NIGHT TERRORS THYROIDECTOMY NECK SURGERY BREAST AUGMENTATION APPENDECTOMY HYSTERECTOMY CARDIAC CATH 2002 COLONOSCOPY (REMOVAL OF POLYPS) /ENDOSCOPY JAN, 2018 (DR. DON) ECHO 06/20: ENLARGED LAC WITH BORDERLINE LVH LVEF 51% PFT 05/20: MILD COPD LAST VITALS Temp Pulse Resp BP Pulse Ox 98.3 F 63 17 109/53 L 96 11/22/18 05:04 11/22/18 05:04 11/22/18 05:04 11/22/18 05:04 11/22/18 05:04 TAKE THESE MEDICATIONS AT HOME Hydrocodone Bitart/Acetaminophen (Manlius 10-325) 1 tab PO Q6HR [facility] Last Admin: 11/22/18 11:55 Dose: 1 tab Amantadine HCl (Symmetrel) 100 mg PO DAILY [facility] Last Admin: 11/22/18 10:05 Dose: 100 mg Aspirin (Aspirin Ec) 81 mg PO DAILYWM [facility] Last Admin: 11/22/18 10:04 Dose: 81 mg Clopidogrel Bisulfate (Plavix) 75 mg PO DAILY [facility] Last Admin: 11/22/18 10:05 Dose: 75 mg Donepezil HCl (Aricept) 10 mg PO DAILY [facility] Last Admin: 11/22/18 10:05 Dose: 10 mg Lorazepam (Ativan) 1 mg PO BEDTIME [facility] Last Admin: 11/21/18 21:09 Dose: 1 mg Memantine (Namenda) 10 mg PO BID [facility] Last Admin: 11/22/18 10:05 Dose: 10 mg Pantoprazole Sodium (Protonix) 40 mg PO QDAC [facility] Last Admin: 11/22/18 05:42 Dose: 40 mg Quetiapine Fumarate (Seroquel) 50 mg PO BEDTIME [facility] Last Admin: 11/21/18 21:09 Dose: 50 mg Tiotropium [place] (Spiriva) 1 cap IH DAILY [facility] Last Admin: 11/22/18 10:15 Dose: 1 cap Tizanidine HCl (Zanaflex) 4 mg PO BEDTIME [facility] Last Admin: 11/21/18 21:09 Dose: 4 mg Valsartan (Diovan) 160 mg PO DAILY [facility] Last Admin: 11/22/18 10:04 Dose: 160 mg ALLERGIES Iodinated Contrast Media [Iodinated Contrast Media - IV Dye] Adverse Reaction ( Verified 09/25/18 10:57) DISCONTINUED MEDICATIONS DIOVAN 320 MG DAILY NEW PRESCRIPTIONS: BACTOBAN OINTMENT BID TO LEFT WRIST WOUND DIOVAN 160 MG DAILY SMOKING: ADVISED TO STOP DISEASE SPECIFIC EDUCATION: USE OF OXYGEN WOUND CARE TO LEFT WRIST ELEVATE LEGS AT NIGHT AND WHILE SITTING APPOINTMENTS LAB REVIEW: 11/22/18 04:45 11/22/18 04:45 11/22/18 04:45: Sodium 137.2, Potassium 3.85, Chloride 113.2 H, Carbon Dioxide 26.0, Anion Gap 1.85, BUN 8.5, Creatinine 0.53 L, Estimated GFR (MDRD) 112.00, BUN/Creatinine Ratio 16.03, Glucose 83.9, Calcium 6.89 L, Total Bilirubin 0.19 L , AST 20.0, ALT 20.8, Alkaline Phosphatase 108.7, Total Protein 3.89 L, Albumin 1.60 L, Globulin 2.29, Albumin/Globulin Ratio 0.69 11/22/18 04:45: WBC 6.94, RBC 2.92 L, Hgb 9.0 L, Hct 29.4 L, MCV 100.7 H, MCH 30.8, MCHC 30.6 L, RDW Coeff of Lester 15.3 H, Plt Count 220, Immature Gran % (Auto ) 0.6, Neut % (Auto) 63.0, Lymph % (Auto) 21.5, Bremer % (Auto) 8.2, Eos % (Auto) 6.1, Baso % (Auto) 0.6, Immature Gran # (Auto) 0.0, Neut # (Auto) 4.4, Lymph # ( Auto) 1.5, Bremer # (Auto) 0.6, Eos # (Auto) 0.4, Baso # (Auto) 0.0 PLAN: DISCHARGE HOME WITH DAUGHTER DIET: REGULAR TOLERATED LIQUIDS TOLERATED ACTIVITY: RESUME TOLERATED. ELEVATE LEGS AT NIGHT AND WHEN SITTING APPLY BACTROBAN TO LEFT WRIST WOUND AFTER CLEANING WITH NORMAL SALINE. LEAVE OPEN TO AIR DURING THE DAY AND MAY APPLY LIGHT DRESSING AT NIGHT (DO NOT USE TAPE ON SKIN) APPOINTMENT WITH DR. DEDRICK DON AT [facility] ON AT 1 PM. OFFICE IS LOCATED AT [facility] ([address]) [address] PHONE NUMBER: APPOINTMENT WITH [facility] ON AT 9 AM OFFICE IS LOCATED AT [address] [place] [address] [address] PHONE NUMBER: AN APPOINTMENT IS SCHEDULED ON AT 10:[address] CHILDS/DUYEN PANTOJA APRN CODE STATUS: DNR PER PATIENT REQUEST MS. HINES IS ALERT AND ORIENTED X 3. SHE REPORTS SHE IS READY AND PLEASED TO BE GOING HOME TODAY. SHE LIVES WITH HER DAUGHTER AND THE DAUGHTER IS AGEEABLE TO DISCHARGE. MS. HINES REPORTS SHE HAS OXYGEN AT HOME FOR USE MAINLY AT NIGHT AND A NEBULIZER FOR TREATMENTS NEEDED. SHE IS ENCOURAGED TO TAKE HER NEBULIZER TREATMENTS AT LEAST TWICE DAILY. MS. HINES IS INDEPENDENT TO [facility] WITH AMBULATION AND USE OF A ROLLATOR. SHE IS INDEPENDENT WITH FEEDING. SHE HAS A GOOD APPETITE AT 100%. SHE IS AMBULATORY TO THE BATHROOM AND IS CONTINENT OF BOWEL/BLADDER. MS. HINES REQUIRES SOME ASSISTANCE WITH PERSONAL CARE AND DRESSING. HYDRATION STATUS HAS IMPROVED. SKIN IS THIN, WITH SKIN TEARS AND ECCHYMOSIS NOTED TO THE LEFT WRIST AND RIGHT FOREARM. THE SKIN TEAR TO THE RIGHT FOREARM IS APPROXIMATED WITH STERI-STRIPS. THE LEFT WRIST SKIN TEAR IS UNAPPROXIMATED, WOUND BED IS PINK WITH NO SURROUNDING REDNESS NOTED. THE SKIN EDGES ARE CURLED. SHE IS ENCOURAGED TO LEAVE THE WOUND OPEN TO AIR DURING THE DAY. PITTING EDEMA, 1-2+ IS NOTED TO THE LOWER EXTREMITIES. NUMEROUS SMALL SCABBED AREAS ARE NOTED TO THE CALVES OF THE LOWER EXTREMITIES. MD DUYEN CRUZ APRN
--- NOTE | 2018-11-25 14:49 | DS ---
DATE OF SERVICE: 11/22/18 FINAL DIAGNOSIS: 1. CELLULITIS LEFT ARM 2. LEG EDEMA 3. RECTAL BLEEDING/HEMORRHOIDS 4. CHRONIC BRONCHITIS 5. HYPOKALEMIA 6. TEMPORAL OCCLUSION OF RIGHT ICA 7. PARKINSON'S 8. DEMENTIA 9. TREMORS 10. ANEMIA 11. HX. GI BLEED 12. COPD 13. EMPHYSEMA 14. PNEUMONIA 15. OXYGEN AT HS 16. PULMONARY NODULE, 6MM RIGHT APICAL 17. NEPHROLITHIASIS, LEFT 7.8 MM 18. DIVERTICULOSIS 19. IBS 20. GERD 21. PROLAPSE RECTUM 22. OA 23. NIGHT TERRORS 24. THYROIDECTOMY 25. NECK SURGERY 26. BREAST AUGMENTATION 27. APPENDECTOMY 28. HYSTERECTOMY 29. CARDIAC CATH 2002 30. COLONOSCOPY (REMOVAL OF POLYPS) /ENDOSCOPY JAN, 2018 (DR. DON) 31. ECHO 06/20: ENLARGED LAC WITH BORDERLINE LVH LVEF 51% 32. PFT 05/20: MILD COPD LAST VITALS Temp Pulse Resp BP Pulse Ox 98.3 F 63 17 109/53 L 96 11/22/18 05:04 11/22/18 05:04 11/22/18 05:04 11/22/18 05:04 05:04 DISCHARGE INSTRUCTIONS: 1. DISCHARGE HOME WITH DAUGHTER. 2. APPOINTMENT WITH DR. DEDRICK DON AT [facility] ON AT 1 PM. OFFICE IS LOCATED AT [facility] ([address] [place] [address] DRIVE) [address] PHONE NUMBER: 3. [facility] AT 9 AM. OFFICE IS LOCATED AT [address] [place] [address] [address] PHONE NUMBER: [phone]. 4. AN APPOINTMENT IS SCHEDULED ON AT 10:[address] CHILDS/ DUYEN PANTOJA APRN. 5. APPLY BACTROBAN TO LEFT WRIST WOUND AFTER CLEANING WITH NORMAL SALINE. LEAVE OPEN TO AIR DURING THE DAY AND MAY APPLY LIGHT DRESSING AT NIGHT (DO NOT USE TAPE ON SKIN). 6. CODE STATUS: DNR PER PATIENT REQUEST. MEDICATIONS AT DISCHARGE: Hydrocodone Bitart/Acetaminophen (Foss 10-325) 1 tab PO Q6HR [facility] Last Admin: 11/22/18 11:55 Dose: 1 tab Amantadine HCl (Symmetrel) 100 mg PO DAILY [facility] Last Admin: 11/22/18 10:05 Dose: 100 mg Aspirin (Aspirin Ec) 81 mg PO DAILYWM [facility] Last Admin: 11/22/18 10:04 Dose: 81 mg Clopidogrel Bisulfate (Plavix) 75 mg PO DAILY [facility] Last Admin: 11/22/18 10:05 Dose: 75 mg Donepezil HCl (Aricept) 10 mg PO DAILY [facility] Last Admin: 11/22/18 10:05 Dose: 10 mg Lorazepam (Ativan) 1 mg PO BEDTIME [facility] Last Admin: 11/21/18 21:09 Dose: 1 mg Memantine (Namenda) 10 mg PO BID [facility] Last Admin: 11/22/18 10:05 Dose: 10 mg Pantoprazole Sodium (Protonix) 40 mg PO QDAC [facility] Last Admin: 11/22/18 05:42 Dose: 40 mg Quetiapine Fumarate (Seroquel) 50 mg PO BEDTIME [facility] Last Admin: 11/21/18 21:09 Dose: 50 mg Tiotropium Gomer (Spiriva) 1 cap IH DAILY [facility] Last Admin: 11/22/18 10:15 Dose: 1 cap Tizanidine HCl (Zanaflex) 4 mg PO BEDTIME [facility] Last Admin: 11/21/18 21:09 Dose: 4 mg Valsartan (Diovan) 160 mg PO DAILY [facility] Last Admin: 11/22/18 10:04 Dose: 160 mg NEW PRESCRIPTIONS: BACTROBAN OINTMENT BID TO LEFT WRIST WOUND DIOVAN 160 MG DAILY DISCONTINUED MEDICATIONS: DIOVAN 320 MG DAILY DIET INSTRUCTIONS: REGULAR TOLERATED; LIQUIDS TOLERATED ACTIVITY: 1. RESUME TOLERATED. 2. ELEVATE LEGS AT NIGHT AND WHEN SITTING SMOKING: ADVISED TO STOP DISEASE SPECIFIC EDUCATION: 1. USE OF OXYGEN 2. WOUND CARE TO LEFT WRIST 3. ELEVATE LEGS AT NIGHT AND WHILE SITTING 4. APPOINTMENTS HOSPITAL COURSE: This is a white female who is a direct admit from our office. She was initially admitted for cellulitis of the left arm after falling at home. She had leg edema as well as arm edema in both arms. She was admitted, given Lasix 20 mg IV , started on Rocephin 1 gm IV daily. Kidney function was slightly elevated on admission, has since improved and stabilized. Leg edema has resolved with keeping legs elevated. She had IV Lasix for two days. She did have some rectal bleeding. She has a history. She had colonoscopy in 2018 with three polyps, recommended a repeat in 3 years. She did have some internal hemorrhoids. She states she does have rectal bleeding from time to time. Hemoglobin did drop initially but then has been stable around 9 to 10. She complained of diarrhea last night. They did a C.diff, it was negative. Wound culture on the arm showed no growth. We had been doing Bactroban b.i.d. along with Rocephin. 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 She seems Dr. Ybarra. She missed her last appointment so we have scheduled her to have an appointment with him on 11/27. Dizziness seemed to be a result of multiple factors, vertigo. She has a carotid stenosis. She was also experiencing some very low blood pressure. She was on Diovan 320 mg and decreased this to 160. Blood pressure has been improved and dizziness has improved since then. She has severe COPD which was stable while she was here. Because of the rectal bleeding, we have arranged for her to have an appointment with Landy SAHU 11/26 which is who did her previous colonoscopy. Again, her hemoglobin is stable. She has been up and about going to the bathroom by herself. No signs or symptoms of infection on the left arm area. It is still very much open however there is no drainage. I do feel that it will take a long time for this to heal given her age, how heavy a smoker she is. We have instructed for her to use Bactroban b.i.d. She has had eight days of antibiotics. I feel that there is no further need. She will be discharged home in stable condition. She will see us next week on after followup appointment with Dr. Don and Dr. Ybarra. TIME SPENT: More than 60 minutes. KOREY
== END 2018-11-22 15:04 | disposition home or self-care (01) | DRG 602 ==
LOC: MEDSURG B 12:03
PROVIDERS: ADMIT Internal Medicine; ATTEND Internal Medicine

== ENCOUNTER 2018-12-27 12:20 | Inpatient (IN) ==
--- NOTE | 2018-12-27 13:26 | ED.PDOC ---
General ED Provider: Dr. SHIRA ANNE Chief Complaint: Weakness Stated Complaint: Daughter states patient very weakened, worsening COPD, cough and congestion. Starting to consider hospice care but wanted her checked ou Time Seen by Physician: 12:55 Mode of Arrival: Wheelchair Information Source: Patient and Family Exam Limitations: Clinical condition Primary Care Provider: BUDDY CHILDS Nursing and Triage Documentation Reviewed and Agree: Yes Does patient meet sepsis criteria?: No System Inflammatory Response Syndrome: Not Applicable Sepsis Protocol: For patient's 13 years and over: Temp is 96.8 and below OR 101 and greater Pulse >90 BPM Resp >20/minute Acutely Altered Mental Status Are patient's symptoms suggestive of a new infection, such as: -Pneumonia -Skin, Soft Tissue -Endocarditis -UTI -Bone, Joint Infection -Implantable Device -Acute Abdominal Infection -Wound Infection -Meningitis -Blood Stream Catheter Infection -Unknown Neurological Complaint Exam Weakness Complaint/Exam Last Known Well: Months ago Onset: Gradual Symptoms Are: Still present Timing: Constant Episodes Lasting: Weeks Initial Severity: Moderate Current Severity: Moderate Character: Reports Weak; Denies Head spinning Aggravating: Reports Exertion Alleviating: Reports None Cardiac Risk Factors: Reports None CVA Risk Factors: Reports None Related Surgical History: Reports None JVD Present: No Carotid Bruit Present: No Review of Systems Review Of Systems Constitutional: Reports No symptoms, Malaise, Weakness and Loss of appetite Eyes: Reports No symptoms Ears, Nose, Mouth, Throat: Reports No symptoms Respiratory: Reports No symptoms, Cough and Short of air Cardiac: Reports No symptoms GI: Reports Poor appetite : Reports No symptoms Musculoskeletal: Reports No symptoms Skin: Reports No symptoms Neurological: Reports No symptoms Endocrine: Reports No symptoms Hematologic/Lymphatic: Reports No symptoms All Other Systems: Reviewed and Negative [facility] Social History Do you feel safe at home: Yes Smoking and tobacco status: Current every day smoker Alcohol intake: former Substance use type: does not use Physical Exam Physical Exam Appearance: Ill-appearing, Thin and Cachectic Ill-appearing: Moderate Pain Distress: Mild Eyes: SAMANTA, EOMI and Conjunctiva clear ENT: Ears normal, Nose normal and Oropharynx normal Respiratory: Airway patent, Breath sounds clear, Breath sounds equal and Respirations nonlabored Cardiovascular: RRR, Pulses normal, No rub and No murmur GI/: Soft, Nontender, No masses, Bowel sounds normal and No Organomegaly Musculoskeletal: Normal strength, ROM intact, No edema and No calf tenderness Skin: Warm, Dry and Normal color Neurological: Sensation intact, Motor intact, Reflexes intact, Cranial nerves intact, Alert and Oriented Psychiatric: Affect appropriate and Mood appropriate Interpretation Radiology Interpretation Radiology Interpretation By: Radiologist Radiology Results: Positive Xray Comments: Pneumonia EKG Interpretation Time of EKG #1: 13:59 Rate: Normal Rhythm: Sinus Ectopy: None Cocoa: NL Interpretation: possible old ant infarct Physician Notification Case Discussed Physician Notified: Dr Childs-agrees to admit patient Full Admit Time of Notification: 15:21 Critical Care Note Critical Care Note Total Time (mins): 30 Course Course Hematology/Chemistry: 12/27/18 14:00 12/27/18 14:00 Orders, Labs, Meds: Lab Review 12/27/18 12/27/18 12/27/18 14:00 14:00 14:00 WBC 9.45 RBC 3.64 L Hgb 11.4 L Hct 36.1 L MCV 99.2 H MCH 31.3 H MCHC 31.6 L RDW Coeff of Lester 14.9 H Plt Count 265 Immature Gran % (Auto) 0.6 Neut % (Auto) 73.5 Lymph % (Auto) 14.7 [place] % (Auto) 6.8 Eos % (Auto) 3.3 Baso % (Auto) 1.1 Immature Gran # (Auto) 0.1 Neut # (Auto) 7.0 H Lymph # (Auto) 1.4 [place] # (Auto) 0.6 Eos # (Auto) 0.3 Baso # (Auto) 0.1 Puncture Site L rad O2 Saturation 94.0 L ABG pH 7.41 ABG pCO2 36.5 ABG pO2 68.0 L ABG HCO3 22.9 ABG Total CO2 24 ABG Base Excess -2 Allan Test + FiO2 % 21.0 Sodium 139.2 Potassium 4.17 Chloride 112.0 H Carbon Dioxide 24.0 Anion Gap 7.37 BUN 14.0 Creatinine 0.80 Estimated GFR (MDRD) 70.00 BUN/Creatinine Ratio 17.50 Glucose 77.3 Lactic Acid Uric Acid Calcium 6.80 L Total Bilirubin 0.71 AST 30.8 ALT 18.7 Alkaline Phosphatase 170.3 H Total Protein 4.78 L Albumin 1.84 L Globulin 2.94 Albumin/Globulin Ratio 0.62 Amylase < 30.0 L Lipase Procalcitonin Influ A Molecular Assay Influ B Molecular Assay 12/27/18 12/27/18 12/27/18 14:00 14:00 14:00 WBC RBC Hgb Hct MCV MCH MCHC RDW Coeff of Lester Plt Count Immature Gran % (Auto) Neut % (Auto) Lymph % (Auto) [place] % (Auto) Eos % (Auto) Baso % (Auto) Immature Gran # (Auto) Neut # (Auto) Lymph # (Auto) [place] # (Auto) Eos # (Auto) Baso # (Auto) Puncture Site O2 Saturation ABG pH ABG pCO2 ABG pO2 ABG HCO3 ABG Total CO2 ABG Base Excess Allan Test FiO2 % Sodium Potassium Chloride Carbon Dioxide Anion Gap BUN Creatinine Estimated GFR (MDRD) BUN/Creatinine Ratio Glucose Lactic Acid 0.60 L Uric Acid 4.54 Calcium Total Bilirubin AST ALT Alkaline Phosphatase Total Protein Albumin Globulin Albumin/Globulin Ratio Amylase Lipase < 10.0 L Procalcitonin 0.37 Influ A Molecular Assay Influ B Molecular Assay 12/27/18 14:25 WBC RBC Hgb Hct MCV MCH MCHC RDW Coeff of Lester Plt Count Immature Gran % (Auto) Neut % (Auto) Lymph % (Auto) [place] % (Auto) Eos % (Auto) Baso % (Auto) Immature Gran # (Auto) Neut # (Auto) Lymph # (Auto) [place] # (Auto) Eos # (Auto) Baso # (Auto) Puncture Site O2 Saturation ABG pH ABG pCO2 ABG pO2 ABG HCO3 ABG Total CO2 ABG Base Excess Allan Test FiO2 % Sodium Potassium Chloride Carbon Dioxide Anion Gap BUN Creatinine Estimated GFR (MDRD) BUN/Creatinine Ratio Glucose Lactic Acid Uric Acid Calcium Total Bilirubin AST ALT Alkaline Phosphatase Total Protein Albumin Globulin Albumin/Globulin Ratio Amylase Lipase Procalcitonin Influ A Molecular Assay Negative by naat Influ B Molecular Assay Negative by naat Orders Category Date Time Status ADMIT PATIENT INPATIENT .TO [facility] (MONITORED BED) ADMISSION 12/27/18 15:26 Active ABG DRAW REQUEST Stat CARDIO 12/27/18 13:36 Completed EKG-(ED ONLY) Stat CARDIO 12/27/18 13:34 Completed OXYGEN Routine CARDIO 12/27/18 15:26 Ordered ACTIVITY .Complete BR CARE 12/27/18 15:26 Ordered BLOOD GLUCOSE MONITORING 0630,1100,1700,2100 CARE 12/27/18 15:27 Ordered INTAKE & OUTPUT Q8HR CARE 12/27/18 15:26 Ordered TELEMETRY MONITORING TELE CARE 12/27/18 15:27 Active VITAL SIGNS Q8HR CARE 12/27/18 15:26 Ordered SOFT DIET DIETARY 12/27/18 Dinner Ordered SOFT DIET DIETARY 12/27/18 Lunch Ordered IV [ED IV/MEDIPORT/POWERPORT] .ONCE EMERGENCY 12/27/18 13:40 Active ABG Stat LAB 12/27/18 14:00 Completed AMYLASE Stat LAB 12/27/18 14:00 Completed BLOOD CULTURE (ED ONLY) Stat LAB 12/27/18 14:00 Received CBC W/ AUTO DIFF DAILY@0600 LAB 12/28/18 06:00 Ordered CBC W/ AUTO DIFF DAILY@0600 LAB 12/29/18 06:00 Ordered CBC W/ AUTO DIFF Stat LAB 12/27/18 14:00 Completed CMP [COMPREHENSIVE METABOLIC PANEL] Stat LAB 12/27/18 14:00 Completed COMPREHENSIVE METABOLIC PANEL DAILY@0600 LAB 12/28/18 06:00 Ordered COMPREHENSIVE METABOLIC PANEL DAILY@0600 LAB 12/29/18 06:00 Ordered FLU A & B MOLECULAR [FLU A/B MOLECULAR] Stat LAB 12/27/18 14:25 Completed LACTIC ACID Stat LAB 12/27/18 14:00 Completed LIPASE Stat LAB 12/27/18 14:00 Completed PROCALCITONIN Stat LAB 12/27/18 14:00 Completed UA [URINALYSIS C & S IF INDICATED] Stat LAB 12/27/18 13:36 Uncollected URIC ACID Stat LAB 12/27/18 14:00 Completed 0.9 % Sodium Chloride [Saline Flush] MEDS 12/27/18 13:40 Active 1 syr IVF PRN PRN Acetaminophen [Tylenol] MEDS 12/27/18 15:26 Ordered 650 mg PO Q4H PRN Azithromycin [Zithromax] MEDS 12/27/18 15:14 Discontinued 500 mg PO ONCE STA Ceftriaxone/D5w 1 gm Premix [Rocephin 1 gm/50 ml D5w] MEDS 12/27/18 15:14 Active 1 gm in 50 ml IV ONCE Enoxaparin Sodium [Lovenox] MEDS 12/27/18 15:30 Ordered 40 mg SUBCUT DAILY Hydrocortisone Sod Succ/Pf [Solu-Cortef 250 mg] MEDS 12/27/18 16:00 Ordered 125 mg IVP Q6HR Ondansetron HCl/Pf [Zofran 4 mg/2 ml] MEDS 12/27/18 15:26 Ordered 4 mg IVP Q6H PRN Sodium Chloride 0.9% [Sodium Chloride] 1,000 ml MEDS 12/27/18 13:38 Discontinued IV BOLUS RESUSCITATION STATUS Routine OTHERS 12/27/18 15:26 Ordered CHEST, 1V AP ONLY Stat RADS 12/27/18 14:20 Completed PT CONSULT Routine THERAPIES 12/27/18 Ordered Medications Generic Name Dose Route Start Last Admin Trade Name Freq PRN Reason Stop Dose Admin Acetaminophen 650 mg 12/27/18 15:26 Tylenol PO Q4H PRN Pain Enoxaparin Sodium 40 mg 12/27/18 15:30 Lovenox SUBCUT DAILY ANABELLA Hydrocortisone Sodium Succinate 125 mg 12/27/18 16:00 Solu-Cortef 250 Mg IVP Q6HR ANABELLA CEFTRIAXONE/D5W 1 GM PREMIX 1 gm in 50 mls @ 75 mls/hr 12/27/18 15:14 Rocephin 1 Gm/50 Ml D5w IV 12/27/18 15:53 ONCE STA Ondansetron HCl 4 mg 12/27/18 15:26 Zofran 4 Mg/2 Ml IVP Q6H PRN Nausea / Vomiting Sodium Chloride 1 syr 12/27/18 13:40 12/27/18 14:20 Saline Flush IVF 1 syr PRN PRN Administration To flush IV Discontinued Medications Generic Name Dose Route Start Last Admin Trade Name Freq PRN Reason Stop Dose Admin Azithromycin 500 mg 12/27/18 15:14 Zithromax PO 12/27/18 15:15 ONCE STA Sodium Chloride 1,000 mls @ 1,000 mls/hr 12/27/18 13:38 12/27/18 14:20 Sodium Chloride IV 12/27/18 14:37 1,000 mls/hr BOLUS STA Administration Vital Signs: Temp Pulse Resp BP Pulse Ox 12/27/18 12:21 98.5 F 101 H 16 85/53 L 83 L Discharge Plan Discharge Patient Disposition: ADMITTED INPATIENT Discharge Problem: Pneumonia, COPD (chronic obstructive pulmonary disease), Muscle weakness ED Provider: SHIRA ANNE Condition: Stable
[2018-12-27] MEDS ORDERED: SODIUM CHLORIDE 1,000 ML IV STA (13:38)
--- NOTE | 2018-12-27 14:26 | DI ---
EXAM: Frontal chest HISTORY: Chronic obstructive pulmonary disease HISTORY: Compared to 11/14/2018. Mildly prominent heart size is stable. There is at least mild ath erosclerotic disease. There is diffuse, chronic appearing interstitial accentuation. A tiny left pl eural effusion is probably new. Left base density is present and increasing. No pneumothorax. Post op changes of the cervical spine IMPRESSION: Left base density and tiny pleural effusion. Consider at least mild regional pneumonia. Follow-up recommended to assure clearance.
[2018-12-27] MEDS ORDERED: ZITHROMAX PO STA (15:14)
[2018-12-27] MEDS ORDERED: ROCEPHIN 1 GM/50 ML D5W 1 GM/50 ML BAG IV STA (15:14)
[2018-12-27] MEDS ORDERED: ZOFRAN 4 MG/2 ML IVP PRN (15:26)
[2018-12-27] MEDS ORDERED: TYLENOL PO PRN (15:26)
[2018-12-27 16:33] VITALS: BMI 22.1
[2018-12-27] MEDS: SOLU-CORTEF 250 MG IVP SCH ×3 (16:39→23:30)
[2018-12-27] MEDS: LOVENOX SUBCUT SCH (16:39)
[2018-12-27] MEDS: NORCO 10-325 PO PRN ×2 (16:54→21:47)
[2018-12-27] MEDS: BACTROBAN TP SCH (20:22)
[2018-12-27] MEDS: ZANAFLEX PO SCH (20:23)
[2018-12-27] MEDS: ATIVAN PO SCH (20:23)
[2018-12-27] MEDS: SEROQUEL PO SCH (20:23)
[2018-12-27] MEDS: NAMENDA PO SCH (20:23)
[2018-12-27] MEDS ORDERED: ATIVAN PO SCH (21:00)
[2018-12-27] MEDS: XOPENEX 1.25 MG NEB SCH (23:15)
[2018-12-27] MEDS: PULMICORT 1 MG/2 ML NEB SCH (23:15)
[2018-12-28] MEDS: SODIUM CHLORIDE 1,000 ML IV SCH (01:40)
[2018-12-28] MEDS: PULMICORT 1 MG/2 ML NEB SCH ×2 (04:55→16:47)
[2018-12-28] MEDS: XOPENEX 1.25 MG NEB SCH ×4 (05:35→23:30)
[2018-12-28] MEDS: SOLU-CORTEF 250 MG IVP SCH ×4 (06:18→23:34)
[2018-12-28] MEDS: PROTONIX PO SCH (06:19)
[2018-12-28] MEDS: NORCO 10-325 PO PRN (08:26)
[2018-12-28] MEDS: NAMENDA PO SCH ×2 (08:26→20:32)
[2018-12-28] MEDS: ROCEPHIN 1 GM/50 ML D5W 1 GM/50 ML BAG IV SCH (08:26)
[2018-12-28] MEDS: DIOVAN PO SCH (08:26)
[2018-12-28] MEDS: SPIRIVA IH SCH (08:26)
[2018-12-28] MEDS: SYMMETREL PO SCH (08:27)
[2018-12-28] MEDS: ARICEPT PO SCH (08:27)
[2018-12-28] MEDS: LOVENOX SUBCUT SCH (08:28)
[2018-12-28] MEDS: ZITHROMAX PO SCH (08:28)
[2018-12-28] MEDS: BACTROBAN TP SCH ×2 (08:41→21:45)
[2018-12-28] MEDS ORDERED: NON-FORMULARY MEDICATION (Amantadine Hcl 100 MG) PO SCH (09:00)
[2018-12-28] MEDS ORDERED: LASIX IVP STA (11:34)
[2018-12-28] MEDS ORDERED: XOPENEX 1.25 MG NEB SCH (18:02)
[2018-12-28] MEDS: ATIVAN PO SCH (20:31)
[2018-12-28] MEDS: SEROQUEL PO SCH (20:31)
[2018-12-28] MEDS: ZANAFLEX PO SCH (20:32)
[2018-12-28] MEDS: NORCO 7.5-325 PO PRN (20:32)
[2018-12-29] MEDS: SODIUM CHLORIDE 1,000 ML IV SCH
[2018-12-29] MEDS: PULMICORT 1 MG/2 ML NEB SCH ×2 (04:30→17:47)
[2018-12-29] MEDS: XOPENEX 1.25 MG NEB SCH ×4 (04:30→23:05)
[2018-12-29] MEDS: PROTONIX PO SCH (05:37)
[2018-12-29] MEDS: NORCO 7.5-325 PO PRN ×3 (05:38→17:06)
[2018-12-29] MEDS: SOLU-CORTEF 250 MG IVP SCH ×4 (05:38→23:43)
[2018-12-29] MEDS: DIOVAN PO SCH (08:46)
[2018-12-29] MEDS: ROCEPHIN 1 GM/50 ML D5W 1 GM/50 ML BAG IV SCH (08:46)
[2018-12-29] MEDS: SPIRIVA IH SCH (08:46)
[2018-12-29] MEDS: ZITHROMAX PO SCH (08:47)
[2018-12-29] MEDS: NAMENDA PO SCH ×2 (08:47→20:29)
[2018-12-29] MEDS: ARICEPT PO SCH (08:47)
[2018-12-29] MEDS: SYMMETREL PO SCH (08:47)
[2018-12-29] MEDS: LOVENOX SUBCUT SCH (08:47)
[2018-12-29] MEDS: BACTROBAN TP SCH ×2 (08:48→20:30)
[2018-12-29] MEDS: NICODERM 14 MG TD SCH (13:03)
[2018-12-29] MEDS: ZANAFLEX PO SCH (20:29)
[2018-12-29] MEDS: SEROQUEL PO SCH (20:29)
[2018-12-29] MEDS: ATIVAN PO SCH (20:29)
[2018-12-30] MEDS: NORCO 7.5-325 PO PRN ×2 (00:11→05:36)
[2018-12-30] MEDS: XOPENEX 1.25 MG NEB SCH ×4 (04:45→23:00)
[2018-12-30] MEDS: PULMICORT 1 MG/2 ML NEB SCH ×2 (04:55→18:05)
[2018-12-30] MEDS: PROTONIX PO SCH (05:36)
[2018-12-30] MEDS: SOLU-CORTEF 250 MG IVP SCH ×3 (05:37→17:33)
--- NOTE | 2018-12-30 07:53 | PN ---
DATE OF SERVICE: 12/27/18 - Admission Note SUBJECTIVE: The patient came to the emergency room with cough, congestion, shortness of breath. PHYSICAL EXAMINATION: HEENT: Head normocephalic, atraumatic. Eyes: Extraocular muscles are intact. Pupils are equal, round and reactive to light and accommodation. Ears: No lesions. Nose appeared normal. Throat: No exudate or erythema. NECK: Supple. No JVD, no carotid bruit. No lymphadenopathy or thyromegaly. LUNGS: Decreased breath sounds with crepitations, dry, bilaterally. Percussion note normal. Chest symmetrical. HEART: S1, S2, no S3. No murmurs. No cyanosis or clubbing. No ascites. Pulses: Dorsalis pedis and posterior tibial pulses +1 to +2 bilaterally. ABDOMEN: Soft. Nontender. Bowel sounds active. No CVA tenderness. No mass felt. EXTREMITIES: No edema. Full range of motion of all extremities, equal. NEUROLOGIC: No focal deficit. Cranial nerves II through XII are grossly intact. No headache, no double vision or headache. SKIN: Not dry. Intact. Turgor - normal. LYMPHATIC: No palpable lymph nodes/no lymphedema. MUSCULOSKELETAL: Normal joints with no swelling. Muscle tone is normal. ASSESSMENT: 1. The patient in respiratory distress with hypoxemia. PLAN: 1. The patient was treated in the emergency room with nebs treatment, steroids, antibiotics. 2. The patient will be hospitalized with IV antibiotics, steroids, nebs treatment. 3. Counseling for smoking done. Condition has improved, stabilized but critical. TIME SPENT: More than 30 minutes. Plan and coordination of the patient's care discussed in the presence of nurse. KOREY
--- NOTE | 2018-12-30 08:48 | PCM.PROG ---
Attending Provider: ATTENDING PROVIDER: Dr. BUDDY CHILDS DATE OF SERVICE: 12/30/18 SUBJECTIVE: This 78 year old /WHITE F was hospitalized 12/27/18 with pneumonia. The patient had respiratory failure which hypoxemia and hypertension. The patient's systolic blood pressure was 110. She is afebrile. She is complaining of pain especially in the spine area. We will increase for [place] 10mg back to 4 times a day. REVIEW OF SYSTEMS: CONSTITUTIONAL: No night sweats. No fatigue, malaise, lethargy. No fever or chills. HEENT: Eyes: No visual changes. No eye pain. No eye discharge. ENT: No runny nose. No epistaxis. No sinus pain. No odynophagia. No congestion. RESPIRATORY: Mild cough, no congestion. No hemoptysis. No shortness of breath. CARDIOVASCULAR: No angina symptoms. No CHF symptoms. No atypical chest pain for CAD. No palpitations. No orthopnea.. GASTROINTESTINAL: No abdominal pain. No nausea or vomiting. No diarrhea or constipation. No hematemesis. No hematochezia Poor appetite. GENITOURINARY: No urgency. No frequency. No dysuria. No hematuria. No obstructive symptoms. No discharge. No pain. No significant abnormal bleeding. MUSCULOSKELETAL: No musculoskeletal pain; no joint swelling. Back pain. NEUROLOGICAL: Awake, alert, oriented to time, place and person. No headache. No neck pain. No syncope. No seizures. No dizziness. PSYCHIATRIC: Not anxious. No depression. No suicidal thoughts. No homicidal thoughts. SKIN: No rash. No lesions. No wounds. ENDOCRINE: No unexplained weight loss. No weight gain. HEMATOLOGIC/LYMPHATIC: No anemia. No purpura. No petechiae. No prolonged or excessive bleeding. No palpable lymph nodes. PHYSICAL EXAMINATION: GENERAL: The patient is awake, alert and oriented, lying in bed in no distress. VITAL SIGNS: Temperature 97.8 F, Pulse 61, Respiratory Rate 20, BP 110/61, Pulse Ox 94% HEENT: Head normocephalic, atraumatic. Eyes: Extraocular muscles are intact. Pupils are equal, round and reactive to light and accommodation. Ears: No lesions. Nose appeared normal. Throat: No exudate or erythema. NECK: Supple. No JVD, no carotid bruit. No lymphadenopathy or thyromegaly. LUNGS: Clear to auscultation. Percussion note normal. Chest symmetrical. HEART: S1, S2, no S3. No murmurs. No cyanosis or clubbing. No ascites. Pulses: Dorsalis pedis and posterior tibial pulses +1 to +2 both sides. ABDOMEN: Soft. Non-tender. Bowel sounds active. No CVA tenderness. No mass felt. EXTREMITIES: No edema. Full range of motion of all extremities, equal. NEUROLOGIC: No focal deficit. Cranial nerves II through XII are grossly intact. No headache, no double vision or headache. SKIN: Warm and dry. Intact. Turgor-normal. LYMPHATIC: No palpable lymph nodes/no lymphedema. MUSCULOSKELETAL: Normal joints with no swelling. Muscle tone is normal. LAB REVIEW: 12/30/18 05:15 12/30/18 05:15 12/30/18 05:15: Sodium 139.6, Potassium 4.38, Chloride 113.3 H, Carbon Dioxide 23.5, Anion Gap 7.18, BUN 14.9, Creatinine 0.70, Estimated GFR (MDRD) 81.00, BUN/Creatinine Ratio 21.28, Glucose 137.5 H, Calcium 7.19 L, Total Bilirubin 0.20, AST 20.0, ALT 19.2, Alkaline Phosphatase 141.6 H, Total Protein 4.47 L, Albumin 1.79 L, Globulin 2.68, Albumin/Globulin Ratio 0.66 12/30/18 05:15: WBC 9.84, RBC 3.16 L, Hgb 9.7 L, Hct 31.7 L, MCV 100.3 H, MCH 30.7, MCHC 30.6 L, RDW Coeff of Lester 14.7, Plt Count 229, Immature Gran % (Auto) 0.8, Neut % (Auto) 91.8, Lymph % (Auto) 4.8 L, [place] % (Auto) 2.6, Eos % (Auto) 0.0, Baso % (Auto) 0.0, Immature Gran # (Auto) 0.1, Neut # (Auto) 9.0 H, Lymph # (Auto) 0.5 L, [place] # (Auto) 0.3 L, Eos # (Auto) 0.0, Baso # (Auto) 0.0 ASSESSMENT: Please see below. 1. Pneumonia seems to be stable on continued antibiotics, steroids and NEBS 2. Severe chronic lung disease 3. 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 Parkinson's Disease 5. Malnutrition 6. History of hypertension PLAN: 1. Hospice consult 2. Continue all pain medications, antibiotics and steroids. 3. Continue IV fluids as long as oral intake is poor. Plan and coordination of the patient's care discussed in the presence of Psych Arnp and nurse. CONDITION: Stable PROGNOSIS: Poor SCRIBED BY: Eric PLEITEZ scribed while in presence of service performed by Dr. BUDDY CHILDS on 12/30/18 ([id number])
[2018-12-30] MEDS: ARICEPT PO SCH (09:43)
[2018-12-30] MEDS: SYMMETREL PO SCH (09:44)
[2018-12-30] MEDS: NAMENDA PO SCH ×2 (09:45→20:01)
[2018-12-30] MEDS: DIOVAN PO SCH (09:45)
[2018-12-30] MEDS: NICODERM 14 MG TD SCH (09:48)
[2018-12-30] MEDS: LOVENOX SUBCUT SCH (09:51)
[2018-12-30] MEDS: SPIRIVA IH SCH (09:56)
[2018-12-30] MEDS: BACTROBAN TP SCH (09:59)
[2018-12-30] MEDS: ROCEPHIN 1 GM/50 ML D5W 1 GM/50 ML BAG IV SCH (10:28)
[2018-12-30] MEDS: NORCO 10-325 PO SCH ×3 (11:36→22:16)
[2018-12-30] MEDS: SODIUM CHLORIDE 1,000 ML IV SCH ×2 (12:10→12:11)
--- NOTE | 2018-12-30 13:59 | HP ---
DATE OF SERVICE: 12/27/18 REASON FOR HOSPITALIZATION: Extreme weakness to the point where patient is unable to walk. Worsening of COPD with cough and congestion and yellowish sputum production and hypotension HISTORY OF PRESENT ILLNESS: 78 year old white female was brought to the emergency room with extreme weakness with cough and congestion. On further workup the patient's initial oxygen saturation on room air was 83%. The patient was given NEBS treatment, steroids and her saturation improved. The patient's blood pressure on admission was noted to be 85/53. She was extreme weak and looked pale. PAST MEDICAL HISTORY/PAST SURGICAL HISTORY: History of dementia seems to be advancing Malnutrition Generalized osteoarthritis Severe DJD spine Severe chronic lung disease with continued smoking Parkinson's disease followed by neurologist Hypertension Severe chronic lung disease with chest x-ray showing diffused chronic appearing interstitial accentuation. Status post C spine surgery REVIEW OF SYSTEMS: CONSTITUTIONAL: No night sweats. Fatigue and weakness. No fever or chills. HEENT: Eyes: No visual changes. No eye pain. No eye discharge. ENT: No runny nose. No epistaxis. No sinus pain. No sore throat. No odynophagia. No ear pain. No congestion. RESPIRATORY: Cough, Congestion with yellowish sputum production. No hemoptysis. Shortness of breath on minimal exertion. CARDIOVASCULAR: No angina symptoms. No CHF symptoms. Pleuritic type right sided with cough. No palpitations. No PND. No orthopnea. GASTROINTESTINAL: No abdominal pain. No nausea or vomiting. No diarrhea or constipation. No hematemesis. No hematochezia. Poor appetite lately for past several days. GENITOURINARY: No urgency. No frequency. No dysuria. No hematuria. No obstructive symptoms. No discharge. No pain. No significant abnormal bleeding. MUSCULOSKELETAL: No musculoskeletal pain. No joint swelling. No arthritis. NEUROLOGICAL: No headache. No neck pain. No syncope. No seizures. No dizziness. Confused at times. Inability to walk from weakness. PSYCHIATRIC: Not anxious. No depression. No suicidal thoughts. No homicidal thoughts. SKIN: No rash. No lesions. No wounds. ENDOCRINE: No unexplained weight loss. No weight gain. HEMATOLOGIC/LYMPHATIC: No anemia. No purpura. No petechiae. No prolonged or excessive bleeding. No palpable lymph nodes. PERSONAL/FAMILY/SOCIAL HISTORY: The patient is and lives with the daughter. She is not able to do most of the activity of daily living lately. Continued to smoke heavy. No alcohol abuse. The patient is DNR. Lately she has been living with her younger sister who helps her with the activities of daily living especially during the day time. MEDICATIONS: Amantadine 100mg PO daily Lorazepam 1mg PO at night Seroquel 50mg PO bedtime Aricept 10mg PO daily Hydrocodone one four times a day Tizanidine 4mg PO at bedtime Aspirin 81mg PO daily Spiriva with HandiHaler two puffs twice a day Plavix 75mg PO daily Protonix 40mg PO daily Namenda 10mg PO twice a day Diovan 160mg PO daily ALLERGIES: Iodinated contrast media PHYSICAL EXAMINATION: GENERAL: The patient looks chronically sick, pale. The patient is oriented to person and place. VITAL SIGNS: Temperature 98.5, pulse 100 per minute, respiratory rate 16, blood pressure 85/53 and pulse ox 83% on room air. HEENT: Head normocephalic, atraumatic. Eyes: Extraocular muscles are intact. Pupils are equal, round and reactive to light and accommodation. Ears: No lesions. Nose appeared normal. Throat: No exudate or erythema. NECK: Supple. No JVD, no carotid bruit. No lymphadenopathy or thyromegaly. LUNGS: Decreased breath sounds. Mild wheeze with intercostal retractions noted. Percussion note normal. Chest symmetrical. HEART: S1, S2, no S3. No murmur. Tachycardia noted. No cyanosis or clubbing. No ascites. Pulses: Dorsalis pedis and posterior tibial pulses +1 bilaterally. ABDOMEN: Soft. Nontender. Bowel sounds active. No CVA tenderness. No mass felt. EXTREMITIES: No edema. Full range of motion of all extremities, equal. NEUROLOGIC: No focal deficit. Cranial nerves II through XII are grossly intact. No headache, no double vision or headache. SKIN: Dry. Intact. Turgor - normal. LYMPHATIC: No palpable lymph nodes/no lymphedema. MUSCULOSKELETAL: Normal joints with no swelling. Muscle tone is normal. ASSESSMENT: 1. Acute respiratory failure secondary to pneumonia and worsening of chronic lung disease 2. Severe chronic lung disease with pulmonary fibrosis with continued smoking 3. Dementia 4. History of hypertension 5. History of Parkinson's Disease 6. Malnutrition 7. Severe generalized osteoarthritis 8. DJD of the spine status post C spine surgery 9. Hypotension on admission PLAN: 1. Given IV fluids 2. NEBS Treatment with Xopenex 3. Pulmicort twice a day 4. IV steroids 5. IV antibiotics Rocephin and Zithromax PO 6. Continue all the rest of the medications 7. Hold Antihypertensive medications for now. 8. Continue Hydrocodone and Amantadine CONDITION: Stabilized PROGNOSIS: Guarded The patient is DNR. The patient's family is interested in putting the patient under Hospice. The patient is also agreeable. We will discuss this further during the hospital stay. TIME SPENT: More than 70 minutes. KOREY
[2018-12-30] MEDS ORDERED: LIDOCAINE HCL 1% SDV IM STA (18:51)
[2018-12-30] MEDS ORDERED: ROCEPHIN 1 GM VIAL IM SCH (19:30)
[2018-12-30] MEDS: ZANAFLEX PO SCH (20:00)
[2018-12-30] MEDS: ATIVAN PO SCH (20:00)
[2018-12-30] MEDS: SEROQUEL PO SCH (20:01)
[2018-12-30] MEDS: ANUCORT-HC RC SCH (20:01)
[2018-12-31] MEDS: NORCO 10-325 PO SCH ×4 (04:21→22:28)
[2018-12-31] MEDS: PROTONIX PO SCH (05:38)
[2018-12-31] MEDS: PULMICORT 1 MG/2 ML NEB SCH ×2 (05:45→16:32)
[2018-12-31] MEDS: XOPENEX 1.25 MG NEB SCH ×4 (05:45→22:32)
[2018-12-31] MEDS: LOVENOX SUBCUT SCH (08:57)
[2018-12-31] MEDS: DIOVAN PO SCH (08:59)
[2018-12-31] MEDS: ARICEPT PO SCH (09:00)
[2018-12-31] MEDS: SYMMETREL PO SCH (09:00)
[2018-12-31] MEDS: NAMENDA PO SCH ×2 (09:00→20:08)
[2018-12-31] MEDS: PREDNISONE PO SCH ×2 (09:00→16:30)
[2018-12-31] MEDS: NICODERM 14 MG TD SCH (09:02)
[2018-12-31] MEDS: ANUCORT-HC RC SCH ×2 (09:02→20:08)
[2018-12-31] MEDS: SPIRIVA IH SCH (09:10)
[2018-12-31] MEDS ORDERED: LIDOCAINE HCL 1% SDV ONE (09:23)
[2018-12-31] MEDS: ROCEPHIN 1 GM VIAL IM SCH (09:25)
--- NOTE | 2018-12-31 09:46 | PN ---
DATE OF SERVICE: 12/29/18 SUBJECTIVE: 78 year old white female hospitalized with pneumonia. The patient was in respiratory distress in the emergency room with oxygen saturation of 85% on room air. The patient was given breathing treatment and NEBS treatment. Condition has improved and the patient is feeling better. She is still sleepy. REVIEW OF SYSTEMS: CONSTITUTIONAL: No night sweats. No fatigue, malaise, lethargy. No fever or chills. HEENT: Eyes: No visual changes. No eye pain. No eye discharge. ENT: No runny nose. No epistaxis. No sinus pain. No sore throat. No odynophagia. No congestion. RESPIRATORY: Mild cough, no congestion. No hemoptysis. Shortness of breath on minimal exertion. CARDIOVASCULAR: No angina symptoms. No CHF symptoms. No atypical chest pain for CAD. No palpitations. No PND. No orthopnea. GASTROINTESTINAL: No abdominal pain. No nausea or vomiting. No diarrhea or constipation. No hematemesis. No hematochezia.Appetite has improved some. GENITOURINARY: No urgency. No frequency. No dysuria. No hematuria. No obstructive symptoms. No discharge. No pain. No significant abnormal bleeding. MUSCULOSKELETAL: No musculoskeletal pain; no joint swelling. NEUROLOGICAL: No headache. No neck pain. No syncope. No seizures. No dizziness. PSYCHIATRIC: Not anxious. No depression. No suicidal thoughts. No homicidal thoughts. SKIN: No rash. No lesions. No wounds. ENDOCRINE: No unexplained weight loss. No weight gain. HEMATOLOGIC/LYMPHATIC: No anemia. No purpura. No petechiae. No prolonged or excessive bleeding. No palpable lymph nodes. PHYSICAL EXAMINATION: VITAL SIGNS: Temperature 97.1, pulse 65, respiratory rate 20, blood pressure 108/64 and pulse ox 97%. HEENT: Head normocephalic, atraumatic. Eyes: Extraocular muscles are intact. Pupils are equal, round and reactive to light and accommodation. Ears: No lesions. Nose appeared normal. Throat: No exudate or erythema. NECK: Supple. No JVD, no carotid bruit. No lymphadenopathy or thyromegaly. LUNGS: Decreased breath sounds bilaterally with wheeze expiratory. Clear to auscultation. Percussion note normal. Chest symmetrical. HEART: S1, S2, no S3. No murmurs. No cyanosis or clubbing. No ascites. Pulses: Dorsalis pedis and posterior tibial pulses +1 to +2 bilaterally. ABDOMEN: Soft. Nontender. Bowel sounds active. No CVA tenderness. No mass felt. EXTREMITIES: No edema. Full range of motion of all extremities, equal. Elbow that are swollen with edema. NEUROLOGIC: No focal deficit. Cranial nerves II through XII are grossly intact. No headache, no double vision or headache. SKIN: Not dry. Intact. Turgor - normal. LYMPHATIC: No palpable lymph nodes/no lymphedema. MUSCULOSKELETAL: Normal joints with no swelling. Muscle tone is normal. ASSESSMENT: 1. Respiratory failure seems to have been under control, patient's oxygen saturation at 2-3 liters is 97% 2. Hypertension seems to have resolved, Continue IV fluids slow and watch for fluid overload 3. Chronic anemia 4. Dementia 5. Severe chronic lung disease with continued smoking 6. Parkinson's disease 7. Malnutrition PROGNOSIS: Poor The patient's family wants her to be on Hospice. The patient is also agreeable for Hospice. Hospice discussed in detail. 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 The patient is DNR. TIME SPENT: More than 30 minutes. Plan and coordination of the patient's care discussed in the presence of nurse. KOREY
--- NOTE | 2018-12-31 11:49 | PN ---
DATE OF SERVICE: 12/28/18 SUBJECTIVE: 78 year old white female hospitalized with pneumonia. The patient's condition seems to have improved. She is feeling better and coughing much less. She is still drowsy, sleepy as she was unable to sleep for several nights prior to hospitalization. REVIEW OF SYSTEMS: CONSTITUTIONAL: No night sweats. No fatigue, malaise, lethargy. No fever or chills. Weakness. HEENT: Eyes: No visual changes. No eye pain. No eye discharge. ENT: No runny nose. No epistaxis. No sinus pain. No sore throat. No odynophagia. No congestion. RESPIRATORY: Cough, Congestion. No hemoptysis. No shortness of breath. CARDIOVASCULAR: No angina symptoms. No CHF symptoms. No atypical chest pain for CAD. No palpitations. No PND. No orthopnea. GASTROINTESTINAL: No abdominal pain. No nausea or vomiting. No diarrhea or constipation. No hematemesis. No hematochezia. Appetite is still not up to par. GENITOURINARY: No urgency. No frequency. No dysuria. No hematuria. No obstructive symptoms. No discharge. No pain. No significant abnormal bleeding. MUSCULOSKELETAL: No musculoskeletal pain; no joint swelling. NEUROLOGICAL: No headache. No neck pain. No syncope. No seizures. No dizziness. PSYCHIATRIC: Not anxious. No depression. No suicidal thoughts. No homicidal thoughts. SKIN: No rash. No lesions. No wounds. ENDOCRINE: No unexplained weight loss. No weight gain. HEMATOLOGIC/LYMPHATIC: No anemia. No purpura. No petechiae. No prolonged or excessive bleeding. No palpable lymph nodes. PHYSICAL EXAMINATION: VITAL SIGNS: Temperature 98, pulse 62, respiratory rate 18, blood pressure 107/60 and pulse ox 96% on 3 liters HEENT: Head normocephalic, atraumatic. Eyes: Extraocular muscles are intact. Pupils are equal, round and reactive to light and accommodation. Ears: No lesions. Nose appeared normal. Throat: No exudate or erythema. NECK: Supple. No JVD, no carotid bruit. No lymphadenopathy or thyromegaly. LUNGS: Decreased breath sound but good air entry. Clear to auscultation. Percussion note normal. Chest symmetrical. HEART: S1, S2, no S3. No murmurs. No cyanosis or clubbing. No ascites. Pulses: Dorsalis pedis and posterior tibial pulses +1 to +2 bilaterally. ABDOMEN: Soft. Nontender. Bowel sounds active. No CVA tenderness. No mass felt. EXTREMITIES: No edema. Full range of motion of all extremities, equal. NEUROLOGIC: No focal deficit. Cranial nerves II through XII are grossly intact. No headache, no double vision or headache. SKIN: Not dry. Intact. Turgor - normal. LYMPHATIC: No palpable lymph nodes/no lymphedema. MUSCULOSKELETAL: Normal joints with no swelling. Muscle tone is normal. LABS: Hgb 11.4, hct 36, WBC 9,400 normal differential, creatinine is 0.8, BUN 14, Alkaline phosphatase 170, albumin and proteins are low. Procalcitonin 0.37. ASSESSMENT: 1. Pneumonia with severe chronic lung disease with history of smoking 2. History of Parkinson's disease 3. Dementia 4. Hypertension 5. 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 PLAN: 1. Continue IV fluids, watch for fluid overload 2. Continue all the medications 3. The patient is going to be on Rocephin and Zithromax. 4. Xopenex QID 5. Pulmicort twice a day 6. Continue Diovan 7. The patient's Narco dose is going to be decreased to 7.5 four times a day 8. The patient has generalized edema. We will given 20 of Lasix IV. Likely cause of generalized edema is malnutrition The patient is DNR. The patient's sister who takes care of her has mentioned about Hospice. PROGNOSIS: Guarded. TIME SPENT: More than 30 minutes. Plan and coordination of the patient's care discussed in the presence of nurse. KOREY
[2018-12-31] MEDS: ATIVAN PO SCH (20:07)
[2018-12-31] MEDS: ZANAFLEX PO SCH (20:07)
[2018-12-31] MEDS: SEROQUEL PO SCH (20:08)
[2019-01-01] MEDS: PULMICORT 1 MG/2 ML NEB SCH ×2 (04:48→16:45)
[2019-01-01] MEDS: XOPENEX 1.25 MG NEB SCH ×4 (04:48→23:25)
[2019-01-01] MEDS: NORCO 10-325 PO SCH ×4 (05:44→22:52)
[2019-01-01] MEDS: PROTONIX PO SCH (05:44)
[2019-01-01] MEDS: DIOVAN PO SCH (08:57)
[2019-01-01] MEDS: PREDNISONE PO SCH (08:57)
[2019-01-01] MEDS: SYMMETREL PO SCH (08:58)
[2019-01-01] MEDS: NAMENDA PO SCH ×2 (08:58→20:50)
[2019-01-01] MEDS: NICODERM 14 MG TD SCH (08:58)
[2019-01-01] MEDS: SPIRIVA IH SCH (08:58)
[2019-01-01] MEDS: ARICEPT PO SCH (08:58)
[2019-01-01] MEDS ORDERED: LIDOCAINE 1 % AMP 5 ML (SUTURES) IM SCH (09:00)
[2019-01-01] MEDS: ROCEPHIN 1 GM VIAL IM SCH (09:00)
[2019-01-01] MEDS: LOVENOX SUBCUT SCH (09:01)
[2019-01-01] MEDS: ANUCORT-HC RC SCH ×2 (09:01→20:50)
[2019-01-01] MEDS ORDERED: LIDOCAINE HCL 1% SDV IM SCH (09:30)
[2019-01-01] MEDS: ATIVAN PO SCH (20:49)
[2019-01-01] MEDS: SEROQUEL PO SCH (20:50)
[2019-01-01] MEDS: ZANAFLEX PO SCH (20:50)
[2019-01-02] MEDS: NORCO 10-325 PO SCH ×2 (04:48→11:21)
[2019-01-02 05:41] VITALS: BP 144/84; TEMP 97.7
[2019-01-02] MEDS: XOPENEX 1.25 MG NEB SCH ×2 (05:45→11:10)
[2019-01-02] MEDS: PULMICORT 1 MG/2 ML NEB SCH (05:45)
[2019-01-02] MEDS: PROTONIX PO SCH (05:50)
[2019-01-02] MEDS ORDERED: PREDNISONE PO SCH (08:00)
[2019-01-02] MEDS ORDERED: LIDOCAINE HCL 1% SDV IM SCH (09:00)
--- NOTE | 2019-01-02 09:34 | PN ---
DATE OF SERVICE: 12/31/18 SUBJECTIVE: 78 year old white female hospitalized with pneumonia. The patient's condition is steadily improving. She is still sleepy. She take Narco four times a day any decrease in the dose makes her have a lot of pain. REVIEW OF SYSTEMS: CONSTITUTIONAL: No night sweats. No fatigue, malaise, lethargy. No fever or chills. HEENT: Eyes: No visual changes. No eye pain. No eye discharge. ENT: No runny nose. No epistaxis. No sinus pain. No sore throat. No odynophagia. No congestion. RESPIRATORY: Mild cough, no congestion. No hemoptysis.Shortness of breath on minimal exertion. CARDIOVASCULAR: No angina symptoms. No CHF symptoms. No atypical chest pain for CAD. No palpitations. No PND. No orthopnea. GASTROINTESTINAL: No abdominal pain. No nausea or vomiting. No diarrhea or constipation. No hematemesis. No hematochezia.Appetite has been improving still not up to par. GENITOURINARY: No urgency. No frequency. No dysuria. No hematuria. No obstructive symptoms. No discharge. No pain. No significant abnormal bleeding. MUSCULOSKELETAL: No musculoskeletal pain; no joint swelling. NEUROLOGICAL: No headache. No neck pain. No syncope. No seizures. No dizziness. PSYCHIATRIC: Not anxious. No depression. No suicidal thoughts. No homicidal thoughts. SKIN: No rash. No lesions. No wounds. ENDOCRINE: No unexplained weight loss. No weight gain. HEMATOLOGIC/LYMPHATIC: No anemia. No purpura. No petechiae. No prolonged or excessive bleeding. No palpable lymph nodes. PHYSICAL EXAMINATION: VITAL SIGNS: Temperature 98.4, pulse 64, respiratory rate 18, blood pressure 126/69 and pulse ox 96%. HEENT: Head normocephalic, atraumatic. Eyes: Extraocular muscles are intact. Pupils are equal, round and reactive to light and accommodation. Ears: No lesions. Nose appeared normal. Throat: No exudate or erythema. NECK: Supple. No JVD, no carotid bruit. No lymphadenopathy or thyromegaly. LUNGS: Decreased breath sounds but clear to auscultation. Percussion note normal. Chest symmetrical. HEART: S1, S2, no S3. No murmurs. No cyanosis or clubbing. No ascites. Pulses: Dorsalis pedis and posterior tibial pulses +1 to +2 bilaterally. ABDOMEN: Soft. Nontender. Bowel sounds active. No CVA tenderness. No mass felt. EXTREMITIES: No edema. Full range of motion of all extremities, equal. NEUROLOGIC: No focal deficit. Cranial nerves II through XII are grossly intact. No headache, no double vision or headache. SKIN: Not dry. Intact. Turgor - normal. LYMPHATIC: No palpable lymph nodes/no lymphedema. MUSCULOSKELETAL: Normal joints with no swelling. Muscle tone is normal. LABS: Hgb 9.6, hct 30, WBC 8,000 normal differential, creatinine 0.6, BUN 16, potassium 4, Estimated GFR 87 cc minute ASSESSMENT: 1. Severe chronic lung disease endstage with continued smoking with chronic respiratory failure. 2. The patient's overall pneumonia and COPD seems to be under control at present time. COPD is endstage and worsening with continued smoking and accepted by Psychiatric PLAN: 1. Continue steroids, antibiotics and NEBS PROGNOSIS: Poor TIME SPENT: More than 30 minutes. Plan and coordination of the patient's care discussed in the presence of nurse. KOREY
[2019-01-02] MEDS: DIOVAN PO SCH (10:19)
[2019-01-02] MEDS: ARICEPT PO SCH (10:19)
[2019-01-02] MEDS: NAMENDA PO SCH (10:19)
[2019-01-02] MEDS: SYMMETREL PO SCH (10:20)
[2019-01-02] MEDS: ROCEPHIN 1 GM VIAL IM SCH (10:21)
[2019-01-02] MEDS: LOVENOX SUBCUT SCH (10:22)
[2019-01-02] MEDS: ANUCORT-HC RC SCH (10:31)
[2019-01-02] MEDS: NICODERM 14 MG TD SCH (10:32)
[2019-01-02] MEDS: SPIRIVA IH SCH (10:39)
--- NOTE | 2019-01-02 11:20 | CM.DICTOOL ---
ADMISSION: 12/27/18 15:31 DISCHARGE: JANUARY 02 DATE OF SERVICE: 01/02/19 FINAL DIAGNOSIS PNEUMONIA, LLL SEVERE CHRONIC LUNG DISEASE, ENDSTAGE CHRONIC RESPIRATORY FAILURE WITH HYPOXEMIA CONTINUED SMOKING, 2-3 PPD HYPERTENSION SEVERE DJD SPINE PARKINSON'S MALNUTRITION ANEMIA TREMORS HISTORY OF GI BLEED PULMONARY NODULE, 6MM RIGHT APICAL NEPHROLITHIASIS, LEFT 7.8 MM DIVERTICULOSIS IBS GERD PROLAPSE RECTUM, PER HISTORY OSTEOARTHRITIS THYROIDECTOMY, PARTIAL CERVICAL SPINE SURGERY BREAST AUGMENTATION APPENDECTOMY HYSTERECTOMY HEART CATH, 2002 COLONOSCOPY, 2017 WITH REMOVAL POLYPS (DR. DON) ECHOCARDIOGRAM 06/2017: ENLARGED LEFT ATRIAL CAVITY WITH BORDERLINE LVH LVEF 51% LAST VITALS Temp Pulse Resp BP Pulse Ox 97.7 F 79 20 144/84 H 95 01/02/19 05:39 01/02/19 05:39 01/02/19 05:39 01/02/19 05:39 01/02/19 05:39 TAKE THESE MEDICATIONS AT HOME Hydrocodone Bitart/Acetaminophen ([place] 10-325) 1 tab PO 0500,1100,1700,2300 [facility] Last Admin: 01/02/19 04:48 Dose: 1 tab Documented by: Amantadine HCl (Symmetrel) 100 mg PO DAILY [facility] Last Admin: 01/01/19 08:58 Dose: 100 mg Documented by: Donepezil HCl (Aricept) 10 mg PO DAILY [facility] Last Admin: 01/01/19 08:58 Dose: 10 mg Documented by: Hydrocortisone Acetate (Anucort-Hc) 1 supp RC BID [facility] Last Admin: 01/01/19 20:50 Dose: 1 supp Documented by: Lorazepam (Ativan) 1 mg PO BEDTIME [facility] Last Admin: 01/01/19 20:49 Dose: 1 mg Documented by: Memantine (Namenda) 10 mg PO BID [facility] Last Admin: 01/01/19 20:50 Dose: 10 mg Documented by: Pantoprazole Sodium (Protonix) 40 mg PO QDAC [facility] Last Admin: 01/02/19 05:50 Dose: 40 mg Documented by: Prednisone (Prednisone) 10 mg PO BID WM [facility] FOR 5 DAYS KEFLEX 500 MG TID ANABELLA FOR 5 DAYS Quetiapine Fumarate (Seroquel) 50 mg PO BEDTIME [facility] Last Admin: 01/01/19 20:50 Dose: 50 mg Documented by: Tiotropium [place] (Spiriva) 1 cap IH DAILY [facility] Last Admin: 01/01/19 08:58 Dose: 1 cap Documented by: Tizanidine HCl (Zanaflex) 4 mg PO BEDTIME [facility] Last Admin: 01/01/19 20:50 Dose: 4 mg Documented by: Valsartan (Diovan) 160 mg PO DAILY [facility] Last Admin: 01/01/19 08:57 Dose: 160 mg Documented by: NEBULIZER TREATMENTS NEEDED UP TO QID ALLERGIES Iodinated Contrast Media [Iodinated Contrast Media - IV Dye] Adverse Reaction (Verified 12/27/18 12:31) DISCONTINUED MEDICATIONS NEW PRESCRIPTIONS: KEFLEX 500 MG TID FOR 5 DAYS PREDNISONE 10 MG BID FOR 5 DAYS. TAKE WITH FOOD SMOKING: PATIENT CONTINUES TO SMOKE DESPITE COUNSELING TO STOP SMOKING; SHE REPORTS PLEASURE IN SMOKING DISEASE SPECIFIC EDUCATION: NUTRITION ACTIVITY SMOKING AND USE OF OXYGEN LAB REVIEW: 01/02/19 05:37 01/02/19 05:37 01/02/19 05:37: Sodium 139.8, Potassium 3.72, Chloride 114.4 H, Carbon Dioxide 24.6, Anion Gap 4.52, BUN 15.6, Creatinine 0.55 L, Estimated GFR (MDRD) 107.00, BUN/Creatinine Ratio 28.36, Glucose 86.8, Calcium 7.05 L, Total Bilirubin 0.32, AST 42.3 H, ALT 29.8, Alkaline Phosphatase 124.4, Total Protein 4.18 L, Albumin 1.74 L, Globulin 2.44, Albumin/Globulin Ratio 0.71 01/02/19 05:37: WBC 7.72, RBC 3.18 L, Hgb 9.8 L, Hct 32.3 L, MCV 101.6 H, MCH 30.8, MCHC 30.3 L, RDW Coeff of Lester 14.5, Plt Count 177, Immature Gran % (Auto) 0.6, Neut % (Auto) 77.3, Lymph % (Auto) 14.9, [place] % (Auto) 6.5, Eos % (Auto) 0.6, Baso % (Auto) 0.1, Immature Gran # (Auto) 0.1, Neut # (Auto) 6.0, Lymph # (Auto) 1.2, [place] # (Auto) 0.5, Eos # (Auto) 0.1, Baso # (Auto) 0.0 PLAN: DISCHARGE: HOME WITH DAUGHTERJUAN DIET: REGULAR TOLERATED ACTIVITY: ACTIVITY TOLERATED. ENCOURAGED TO SIT UP AT LEAST 1-2 TIMES DAILY ENCOURAGED TO TURN FREQUENTLY IN THE BED TO AVOID PRESSURE ULCERS CONTINUE TO USE OXYGEN AT NIGHT AND NEEDED DURING THE DAY TURN OFF OXYGEN AND REMOVE CANNULA WHEN SMOKING CONTINUE TO USE NEBULIZER TREATMENTS UP TO 4 TIMES DAILY NEEDED [facility] HAS BEEN CONSULTED AT REQUEST OF PATIENT AND FAMILY PATIENT WILL BE ADMITTED TO [facility] AFTER DISCHARGE HOME ALL EQUIPMENT NEEDS HAVE BEEN ARRANGED AND ARE IN PLACE PER [facility] CONTINUE MEDICATIONS LISTED [facility] FOR FURTHER ORDERS SKIN CARE WITH TO RIGHT ARM; CLEANSE WITH MILD SOAP/WATER, APPLY BACTROBAN AND NON-STICK DRESSING. AVOID TAPE TO SKIN AN APPOINTMENT IS ARRANGED WITH DR. CHILDS/DUYEN PANTOJA APRN ON AT 1 PM. CODE STATUS: DNR MS. HINES IS ALERT AND ORIENTED X 3. SHE IS HARD OF HEARING. SHE IS FORGETFUL AT TIMES. MS. HINES IS AGREEABLE WITH PLANS FOR DISCHARGE HOME. SHE WILL BE ST AYING WITH HER DAUGHTER, JUAN. SHE VOICES SHE IS PLEASED TO BE GOING HOME AND IS LOOKING FORWARD TO SPENDING TIME WITH HER FAMILY. MS. HINES IS INDEPENDENT WITH FEEDING. SHE REQUIRES ASSISTANCE OF 1-2 STAFF MEMBERS WITH BATHING, DRESSING AND TRANSFERS. SHE IS UP TO THE CHAIR WITH ASSISTANCE OF 1- 2 STAFF MEMBERS. GENERALIZED WEAKNESS NOTED. SCATTERED BRUISING NOTED TO THE UPPER EXTREMITIES. THREE SKIN TEARS NOTED TO THE RIGHT ARM (UPPER, MID AND BELOW THE ELBOW). WOUND CULTURES NEGATIVE. ALL AREAS ARE HEALING AND WITHOUT SIGNS OF INFECTION. SEVERAL SCABBED AREAS NOTED TO THE LEFT ARM, LEFT SKY. NO SIGNS OF INFECTION. 1+ PITTING EDEMA NOTED TO THE LEFT FOOT AND ANKLE. UPPER EXTREMITIES WITH NON-PITTING EDEMA ESPECIALLY AT THE ANTECUBITAL AREAS. THE PATIENT AND FAMILY REQUESTED A REFERRAL TO HOSPICE. [facility] HAS BEEN ARRANGED FOR THE PATIENT AND WILL BEGIN AFTER HER DISCHARGE FROM THIS HOSPITAL STAY. ALL EQUIPMENT HAS BEEN ARRANGED AND IS IN PLACE PER [facility]. MD DUYEN CRUZ APRN
--- NOTE | 2019-01-03 13:10 | DS ---
DATE OF SERVICE: 01/02/19 FINAL DIAGNOSIS: 1. PNEUMONIA, LLL 2. SEVERE CHRONIC LUNG DISEASE, ENDSTAGE 3. CHRONIC RESPIRATORY FAILURE WITH HYPOXEMIA 4. CONTINUED SMOKING, 2-3 PPD 5. HYPERTENSION 6. SEVERE DJD SPINE 7. PARKINSON'S 8. MALNUTRITION 9. ANEMIA 10.TREMORS 11.HISTORY OF GI BLEED 12.PULMONARY NODULE, 6MM RIGHT APICAL 13.NEPHROLITHIASIS, LEFT 7.8 MM 14.DIVERTICULOSIS 15.IBS 16.GERD 17.PROLAPSE RECTUM, PER HISTORY 18.OSTEOARTHRITIS 19.THYROIDECTOMY, PARTIAL 20.CERVICAL SPINE SURGERY 21.BREAST AUGMENTATION 22.APPENDECTOMY 23.HYSTERECTOMY 24.HEART CATH, 2002 25.COLONOSCOPY, 2017 WITH REMOVAL POLYPS (DR. DON) 26.ECHOCARDIOGRAM 06/2017: ENLARGED LEFT ATRIAL CAVITY WITH BORDERLINE LVH, LVEF 51% LAST VITALS Temp Pulse Resp BP Pulse Ox 97.7 F 79 20 144/84 H 95 01/02/19 05:39 01/02/19 05:39 01/02/19 05:39 01/02/19 05:39 01/02/19 05:39 DISCHARGE INSTRUCTIONS: DISCHARGE HOME WITH DAUGHTERJUAN. CONTINUE TO USE OXYGEN AT NIGHT AND NEEDED DURING THE DAY TURN OFF OXYGEN AND REMOVE CANNULA WHEN SMOKING. CONTINUE TO USE NEBULIZER TREATMENTS UP TO 4 TIMES DAILY NEEDED. [facility] HAS BEEN CONSULTED AT REQUEST OF PATIENT AND FAMILY. PATIENT WILL BE ADMITTED TO [facility] AFTER DISCHARGE HOME. ALL EQUIPMENT NEEDS HAVE BEEN ARRANGED AND ARE IN PLACE PER [facility]. CONTINUE MEDICATIONS LISTED. [facility] FOR FURTHER ORDERS. SKIN CARE WITH TO RIGHT ARM; CLEANSE WITH MILD SOAP/WATER, APPLY BACTROBAN AND NON-STICK DRESSING. AVOID TAPE TO SKIN. AN APPOINTMENT IS ARRANGED WITH DR. CHILDS/DUYEN PANTOJA APRN ON January AT 1 PM. CODE STATUS: DNR TAKE THESE MEDICATIONS AT HOME: Hydrocodone Bitart/Acetaminophen ([place] 10-325) 1 tab PO 0500,1100,1700,2300 ANABELLA Amantadine HCl (Symmetrel) 100 mg PO DAILY ANABELLA Donepezil HCl (Aricept) 10 mg PO DAILY ANABELLA Hydrocortisone Acetate (Anucort-Hc) 1 supp RC BID ANABELLA Lorazepam (Ativan) 1 mg PO BEDTIME ANABELLA Memantine (Namenda) 10 mg PO BID ANABELLA Pantoprazole Sodium (Protonix) 40 mg PO QDAC ANABELLA Prednisone (Prednisone) 10 mg PO BID WM ANABELLA FOR 5 DAYS KEFLEX 500 MG TID ANABELLA FOR 5 DAYS Quetiapine Fumarate (Seroquel) 50 mg PO BEDTIME ANABELLA Tiotropium Trinchera (Spiriva) 1 cap IH DAILY ANABELLA Tizanidine HCl (Zanaflex) 4 mg PO BEDTIME ANABELLA Valsartan (Diovan) 160 mg PO DAILY [facility] NEBULIZER TREATMENTS NEEDED UP TO QID ALLERGIES: Iodinated Contrast Media [Iodinated Contrast Media - IV Dye] Adverse Reaction (Verified 12/27/18 12:31) NEW PRESCRIPTIONS: KEFLEX 500 MG TID FOR 5 DAYS PREDNISONE 10 MG BID FOR 5 DAYS. TAKE WITH FOOD SMOKING: PATIENT CONTINUES TO SMOKE DESPITE COUNSELING TO STOP SMOKING; SHE REPORTS PLEASURE IN SMOKING DISEASE SPECIFIC EDUCATION: NUTRITION ACTIVITY SMOKING AND USE OF OXYGEN LAB REVIEW: 01/02/19 05:37 01/02/19 05:37 01/02/19 05:37: Sodium 139.8, Potassium 3.72, Chloride 114.4 H, Carbon Dioxide 24.6, Anion Gap 4.52, BUN 15.6, Creatinine 0.55 L, Estimated GFR (MDRD) 107.00, BUN/Creatinine Ratio 28.36, Glucose 86.8, Calcium 7.05 L, Total Bilirubin 0.32, AST 42.3 H, ALT 29.8, Alkaline Phosphatase 124.4, Total Protein 4.18 L, Albumin 1.74 L, Globulin 2.44, Albumin/Globulin Ratio 0.71 01/02/19 05:37: WBC 7.72, RBC 3.18 L, Hgb 9.8 L, Hct 32.3 L, MCV 101.6 H, MCH 30.8, MCHC 30.3 L, RDW Coeff of Lester 14.5, Plt Count 177, Immature Gran % (Auto) 0.6, Neut % (Auto) 77.3, Lymph % (Auto) 14.9, Sanders % (Auto) 6.5, Eos % (Auto) 0.6, Baso % (Auto) 0.1, Immature Gran # (Auto) 0.1, Neut # (Auto) 6.0, Lymph # (Auto) 1.2, Sanders # (Auto) 0.5, Eos # (Auto) 0.1, Baso # (Auto) 0.0 DIET: REGULAR TOLERATED ACTIVITY: ACTIVITY TOLERATED. ENCOURAGED TO SIT UP AT LEAST 1-2 TIMES DAILY ENCOURAGED TO TURN FREQUENTLY IN THE BED TO AVOID PRESSURE ULCERS HOSPITAL COURSE: This is a 78 year old white female who presented to the emergency room with shortness of breath, weakness and was found to have left lower lobe pneumonia on top of chronic respiratory failure. She has been heavy smoker, she smokes two to three packs per days for probably the past 50 years. She has continued to do so despite deteriorating conditions. She was placed on Rocephin IV along with Zithromax along with IV steroids. Over the course of the past several days she has slightly and slowly improved. Yesterday she had some dizziness and nausea and this has since resolved. She was given IV fluids. After being in the hospital she has decided that she would like to seek only palliative treatment. She was accepted to Hospice referral with [facility]. She wishes to go home and be with her family. She understands that she is at the endstage of her disease process given her severe chronic lunch disease, chronic respiratory failure and the fact that she wishes to continue to smoke. We are in agreement with this. She also has significant peripheral vascular disease, hypertension. Hospice has already accepted this patient. She is going to go home. She lives with her daughter and Hospice will see her at home. We will followup with her as needed. She is discharged in stable condition but with a very poor prognosis. Both the patient and the daughter demonstrate understanding. She has been advised to stop smoking. She will given Keflex 500mg TID for the next 5 days along with Prednisone BID for 5 days and we will see her as needed. She has a nebulizer machine at home to use up to four times daily. Also has oxygen at night. TIME SPENT: More than 60 minutes. MTDD
--- NOTE | 2019-01-03 13:45 | PN ---
DATE OF SERVICE: 01/01/19 SUBJECTIVE: 78-year-old white female was hospitalized with pneumonia. The patient's condition seems to be improving. She is feeling a lot better and wants to go home. This morning she had maybe mild upset stomach. REVIEW OF SYSTEMS: CONSTITUTIONAL: No night sweats. No fatigue, malaise, lethargy. No fever or chills. HEENT: Eyes: No visual changes. No eye pain. No eye discharge. ENT: No runny nose. No epistaxis. No sinus pain. No sore throat. No odynophagia. No congestion. RESPIRATORY: Mild cough, no congestion. No hemoptysis. CARDIOVASCULAR: No angina symptoms. No CHF symptoms. No atypical chest pain for CAD. No palpitations. No PND, no orthopnea but short of breath as usual on exertion. GASTROINTESTINAL: Appetite is improving. No abdominal pain. No nausea or vomiting. No diarrhea or constipation. No hematemesis. No hematochezia. GENITOURINARY: No urgency. No frequency. No dysuria. No hematuria. No obstructive symptoms. No discharge. No pain. No significant abnormal bleeding. MUSCULOSKELETAL: No musculoskeletal pain; no joint swelling. NEUROLOGICAL: No headache. No neck pain. No syncope. No seizures. No dizziness. PSYCHIATRIC: Not anxious. No depression. No suicidal thoughts. No homicidal thoughts. SKIN: No rash. No lesions. No wounds. ENDOCRINE: No unexplained weight loss. No weight gain. HEMATOLOGIC/LYMPHATIC: No anemia. No purpura. No petechiae. No prolonged or excessive bleeding. No palpable lymph nodes. PHYSICAL EXAMINATION: VITAL SIGNS: Temperature 98.2, pulse 65, respiratory rate 16, blood pressure 132/70, pulse ox 96%. HEENT: Head normocephalic, atraumatic. Eyes: Extraocular muscles are intact. Pupils are equal, round and reactive to light and accommodation. Ears: No lesions. Nose appeared normal. Throat: No exudate or erythema. NECK: Supple. No JVD, no carotid bruit. No lymphadenopathy or thyromegaly. LUNGS: Decreased breath sounds but clear to auscultation. Percussion note normal. Chest symmetrical. HEART: S1, S2, no S3. No murmurs. No cyanosis or clubbing. No ascites. Pulses: Dorsalis pedis and posterior tibial pulses +1 to +2 bilaterally. ABDOMEN: Soft. Nontender. Bowel sounds active. No CVA tenderness. No mass felt. EXTREMITIES: No edema. Full range of motion of all extremities, equal. NEUROLOGIC: No focal deficit. Cranial nerves II through XII are grossly intact. No headache, no double vision or headache. SKIN: Not dry. Intact. Turgor - normal. LYMPHATIC: No palpable lymph nodes/no lymphedema. MUSCULOSKELETAL: Normal joints with no swelling. Muscle tone is normal. LABS: Hemoglobin 10, hematocrit 32, WBC 6,200, normal differential. Creatinine 0.6, BUN 16, potassium 3.9. ASSESSMENT: 1. PNEUMONIA SEEMS TO BE RESOLVING CLINICALLY. 2. SEVERE CHRONIC LUNG DISEASE WITH HISTORY OF HEAVY SMOKING. 3. PARKINSON'S DISEASE. 4. DEMENTIA. 5. HYPERTENSION. PLAN: 1. Discharge the patient home likely tomorrow. 2. Continue antibiotics, steroids and nebs. The patient is going to be continued on the same as an outpatient. 3. The patient will be on Hospice after she is discharged from the hospital. She has been accepted by [facility]. 4. Continue telemetry. CONDITION: Stable PROGNOSIS: Poor. TIME SPENT: More than 30 minutes. Plan and coordination of the patient's care discussed in the presence of nurse. KOREY
== END 2019-01-02 13:42 | disposition home or self-care (01) | DRG 189 ==
LOC: ED 12:20 → MEDSURG B 15:31
PROVIDERS: ADMIT Internal Medicine; ATTEND Internal Medicine
DX: I10 Essential (primary) hypertension; R63.0 Anorexia; J44.9 Chronic obstructive pulmonary disease, unspecified; M47.9 Spondylosis, unspecified; M19.90 Unspecified osteoarthritis, unspecified site; J18.9 Pneumonia, unspecified organism; D64.9 Anemia, unspecified; F03.90 Unspecified dementia, unspecified severity, without behavioral disturbance, psychotic disturbance, mood disturbance, and anxiety; E46 Unspecified protein-calorie malnutrition; R05 Cough; J96.91 Respiratory failure, unspecified with hypoxia; R53.1 Weakness; R06.02 Shortness of breath; K21.9 Gastro-esophageal reflux disease without esophagitis; Z72.0 Tobacco use; G20 Parkinson's disease